=== PATIENT | male | born 1955 | race Caucasian/White ===

== ENCOUNTER 2016-08-06 12:49 | Outpatient (RCR) | payer OTHER ==
[~2016-08-06 12:49] MED LIST: ALFU10TA PO; ALFU10TA11 PO; ASP81TEC; CALC625T PO; CIPR500T21 PO; CYAN10006 PO; LOSA25TA2 PO; MULT1TAB63 PO; OLME1TAB24 PO; OLME40TA14; OMG1KC PO; OXYC-202 PO; PANT40TA3 PO
[2016-08-06 13:04] LABS: BASOPHILS % (AUTO) 1 % (0-10); EOSINOPHILS # (AUTO) 0.1 10^3/uL (0.0-0.3); EOSINOPHILS % (AUTO) 2 % (0-10); LYMPHOCYTES # (AUTO) 1.4 X 10^3 (1.0-4.0); LYMPHOCYTES % (AUTO) 25 % (12-44); MEAN CORPUSCULAR HEMOGLOBIN 27 PG (25-34); MEAN CORPUSCULAR HGB CONC 35 G/DL (32-36); MEAN CORPUSCULAR VOLUME 77 FL (80-99); MEAN PLATELET VOLUME 9.7 FL (7.4-10.4); MONOCYTES # (AUTO) 0.6 X 10^3 (0.0-1.0); MONOCYTES % (AUTO) 10 % (0-12); NEUTROPHILS # (AUTO) 3.6 X 10^3 (1.8-7.8); NEUTROPHILS % (AUTO) 62 % (42-75); PLATELET COUNT 216 10^3/uL (130-400); RED BLOOD COUNT 6.59 10^6/uL (4.35-5.85); RED CELL DISTRIBUTION WIDTH 21.6 % (10.0-14.5); WHITE BLOOD COUNT 5.8 10^3/uL (4.3-11.0)
[2016-08-06 13:47] LABS: ALANINE AMINOTRANSFERASE 38 U/L (0-55); ALBUMIN 4.4 G/DL (3.2-4.5); ANION GAP 7 MMOL/L (5-14); ASPARTATE AMINO TRANSFERASE 27 U/L (5-34); BILIRUBIN,TOTAL 0.5 MG/DL (0.1-1.0); BLOOD UREA NITROGEN 12 MG/DL (7-18); BUN/CREATININE RATIO 14; CALCIUM 8.9 MG/DL (8.5-10.1); CARBON DIOXIDE 27 MMOL/L (21-32); CHLORIDE 106 MMOL/L (98-107); CREATININE SERUM 0.88 MG/DL (0.60-1.30); GFR ESTIMATED > 60; GLUCOSE 79 MG/DL (70-105); POTASSIUM 4.1 MMOL/L (3.6-5.0); SODIUM 140 MMOL/L (135-145); TOTAL PROTEIN 6.9 G/DL (6.4-8.2)
== END 2016-11-04 | disposition home or self-care (01) ==
LOC: ONC 12:49
PROVIDERS: ATTEND Internal Medicine Hematology & Oncology
DX: C18.1 Malignant neoplasm of appendix (principal); Z85.038 Personal history of other malignant neoplasm of large intestine; D64.9 Anemia, unspecified; I10 Essential (primary) hypertension; R97.20 Elevated prostate specific antigen [PSA]; R71.8 Other abnormality of red blood cells; Z79.899 Other long term (current) drug therapy
CPT/HCPCS: 36415; 80053; 82378; 82728; 84153; 85025; 99213

== ENCOUNTER 2016-11-05 13:14 | Outpatient (RCR) | payer OTHER ==
[2016-11-05 13:14] LABS: BASOPHILS # (AUTO) 0.1 10^3/uL (0.0-0.1); BASOPHILS % (AUTO) 1 % (0-10); EOSINOPHILS # (AUTO) 0.3 10^3/uL (0.0-0.3); EOSINOPHILS % (AUTO) 4 % (0-10); LYMPHOCYTES # (AUTO) 1.6 X 10^3 (1.0-4.0); LYMPHOCYTES % (AUTO) 27 % (12-44); MEAN CORPUSCULAR HEMOGLOBIN 30 PG (25-34); MEAN CORPUSCULAR HGB CONC 35 G/DL (32-36); MEAN CORPUSCULAR VOLUME 85 FL (80-99); MEAN PLATELET VOLUME 10.1 FL (7.4-10.4); MONOCYTES # (AUTO) 0.6 X 10^3 (0.0-1.0); MONOCYTES % (AUTO) 11 % (0-12); NEUTROPHILS # (AUTO) 3.3 X 10^3 (1.8-7.8); NEUTROPHILS % (AUTO) 57 % (42-75); PLATELET COUNT 203 10^3/uL (130-400); RED BLOOD COUNT 5.87 10^6/uL (4.35-5.85); RED CELL DISTRIBUTION WIDTH 14.6 % (10.0-14.5); WHITE BLOOD COUNT 5.8 10^3/uL (4.3-11.0)
[2016-11-05 13:43] LABS: ALANINE AMINOTRANSFERASE 49 U/L (0-55); ALBUMIN 4.2 G/DL (3.2-4.5); ANION GAP 10 MMOL/L (5-14); ASPARTATE AMINO TRANSFERASE 26 U/L (5-34); BILIRUBIN,TOTAL 0.7 MG/DL (0.1-1.0); BLOOD UREA NITROGEN 13 MG/DL (7-18); BUN/CREATININE RATIO 15; CALCIUM 8.9 MG/DL (8.5-10.1); CARBON DIOXIDE 19 MMOL/L (21-32); CHLORIDE 111 MMOL/L (98-107); CREATININE SERUM 0.87 MG/DL (0.60-1.30); GFR ESTIMATED > 60; GLUCOSE 101 MG/DL (70-105); POTASSIUM 3.8 MMOL/L (3.6-5.0); SODIUM 140 MMOL/L (135-145)
== END 2017-02-03 | disposition home or self-care (01) ==
LOC: ONC 13:14
PROVIDERS: ATTEND Internal Medicine Hematology & Oncology
DX: C18.1 Malignant neoplasm of appendix (principal); Z85.038 Personal history of other malignant neoplasm of large intestine; D64.9 Anemia, unspecified; I10 Essential (primary) hypertension; R97.20 Elevated prostate specific antigen [PSA]; R71.8 Other abnormality of red blood cells; Z79.899 Other long term (current) drug therapy
CPT/HCPCS: 80053; 82378; 85025; 99213

== ENCOUNTER → 2016-11-05 | Outpatient (CLI) | payer OTHER | LOC: LAB 13:07 | PROVIDERS: ATTEND Specialist | DX: N40.1 Benign prostatic hyperplasia with lower urinary tract symptoms (principal); R97.20 Elevated prostate specific antigen [PSA] | CPT/HCPCS: 36415; 84153 ==

== ENCOUNTER 2017-02-04 12:56 | Outpatient (RCR) | payer OTHER ==
[2017-02-04 13:22] LABS: BASOPHILS # (AUTO) 0.1 10^3/uL (0.0-0.1); BASOPHILS % (AUTO) 1 % (0-10); EOSINOPHILS # (AUTO) 0.2 10^3/uL (0.0-0.3); EOSINOPHILS % (AUTO) 3 % (0-10); LYMPHOCYTES # (AUTO) 1.7 X 10^3 (1.0-4.0); LYMPHOCYTES % (AUTO) 34 % (12-44); MEAN CORPUSCULAR HEMOGLOBIN 29 PG (25-34); MEAN CORPUSCULAR HGB CONC 35 G/DL (32-36); MEAN CORPUSCULAR VOLUME 83 FL (80-99); MEAN PLATELET VOLUME 10.5 FL (7.4-10.4); MONOCYTES # (AUTO) 0.5 X 10^3 (0.0-1.0); MONOCYTES % (AUTO) 10 % (0-12); NEUTROPHILS # (AUTO) 2.7 X 10^3 (1.8-7.8); NEUTROPHILS % (AUTO) 52 % (42-75); PLATELET COUNT 182 10^3/uL (130-400); RED BLOOD COUNT 5.75 10^6/uL (4.35-5.85); WHITE BLOOD COUNT 5.1 10^3/uL (4.3-11.0)
[2017-02-04 13:40] LABS: ALANINE AMINOTRANSFERASE 40 U/L (0-55); ALBUMIN 4.1 GM/DL (3.2-4.5); ANION GAP 10 MMOL/L (5-14); ASPARTATE AMINO TRANSFERASE 26 U/L (5-34); BILIRUBIN,TOTAL 0.7 MG/DL (0.1-1.0); BLOOD UREA NITROGEN 12 MG/DL (7-18); BUN/CREATININE RATIO 14 (0-20); CARBON DIOXIDE 19 MMOL/L (21-32); CHLORIDE 113 MMOL/L (98-107); CREATININE SERUM 0.84 MG/DL (0.60-1.30); GFR ESTIMATED > 60; GLUCOSE 109 MG/DL (70-105); HEMOLYSIS 21 (-100-29); ICTERUS 0.8 (-100-1.9); LIPEMIA 20 (-100-49); POTASSIUM 3.5 MMOL/L (3.6-5.0); SODIUM 142 MMOL/L (135-145); TOTAL PROTEIN 7.1 GM/DL (6.4-8.2)
== END 2017-05-01 10:45 | disposition home or self-care (01) ==
LOC: ONC 12:56
PROVIDERS: ATTEND Internal Medicine Hematology & Oncology
DX: C18.1 Malignant neoplasm of appendix (principal); Z85.038 Personal history of other malignant neoplasm of large intestine; D64.9 Anemia, unspecified; I10 Essential (primary) hypertension; R97.20 Elevated prostate specific antigen [PSA]; R71.8 Other abnormality of red blood cells; Z79.899 Other long term (current) drug therapy
CPT/HCPCS: 36415; 80053; 82378; 84153; 85025; 99213

== ENCOUNTER 2017-05-05 02:05 | Outpatient (RCR) | payer OTHER ==
[2017-05-05 13:58] LABS: BASOPHILS # (AUTO) 0.1 10^3/uL (0.0-0.1); BASOPHILS % (AUTO) 1 % (0-10); EOSINOPHILS # (AUTO) 0.2 10^3/uL (0.0-0.3); EOSINOPHILS % (AUTO) 3 % (0-10); LYMPHOCYTES # (AUTO) 1.6 X 10^3 (1.0-4.0); LYMPHOCYTES % (AUTO) 26 % (12-44); MEAN CORPUSCULAR HEMOGLOBIN 30 PG (25-34); MEAN CORPUSCULAR HGB CONC 36 G/DL (32-36); MEAN CORPUSCULAR VOLUME 85 FL (80-99); MEAN PLATELET VOLUME 10.3 FL (7.4-10.4); MONOCYTES # (AUTO) 0.6 X 10^3 (0.0-1.0); MONOCYTES % (AUTO) 10 % (0-12); NEUTROPHILS # (AUTO) 3.8 X 10^3 (1.8-7.8); NEUTROPHILS % (AUTO) 60 % (42-75); PLATELET COUNT 205 10^3/uL (130-400); RED BLOOD COUNT 5.76 10^6/uL (4.35-5.85); RED CELL DISTRIBUTION WIDTH 14.3 % (10.0-14.5); WHITE BLOOD COUNT 6.2 10^3/uL (4.3-11.0)
[2017-05-05 14:44] LABS: ALANINE AMINOTRANSFERASE 48 U/L (0-55); ALBUMIN 4.2 GM/DL (3.2-4.5); ANION GAP 8 MMOL/L (5-14); ASPARTATE AMINO TRANSFERASE 26 U/L (5-34); BILIRUBIN,TOTAL 0.5 MG/DL (0.1-1.0); BLOOD UREA NITROGEN 11 MG/DL (7-18); BUN/CREATININE RATIO 12; CALCIUM 9.1 MG/DL (8.5-10.1); CARBON DIOXIDE 24 MMOL/L (21-32); CHLORIDE 110 MMOL/L (98-107); CREATININE SERUM 0.92 MG/DL (0.60-1.30); GFR ESTIMATED > 60; GLUCOSE 91 MG/DL (70-105); POTASSIUM 3.9 MMOL/L (3.6-5.0); SODIUM 142 MMOL/L (135-145); TOTAL PROTEIN 7.2 GM/DL (6.4-8.2)
== END 2017-05-14 09:14 | disposition home or self-care (01) ==
LOC: ONC 02:05
PROVIDERS: ATTEND Internal Medicine Hematology & Oncology
DX: C18.1 Malignant neoplasm of appendix (principal); Z85.038 Personal history of other malignant neoplasm of large intestine; D64.9 Anemia, unspecified; I10 Essential (primary) hypertension; R97.20 Elevated prostate specific antigen [PSA]; R71.8 Other abnormality of red blood cells; Z79.899 Other long term (current) drug therapy
CPT/HCPCS: 36415; 80053; 82378; 83735; 85025; 99213

== ENCOUNTER 2017-06-13 06:32 | Outpatient (CLI) | payer OTHER ==
[~2017-06-13] VITALS: Ht 180.3 cm; Wt 94.1 kg
[2017-06-13] MEDS ORDERED: MULT1TAB69 PO (11:39)
== END 2017-06-13 11:45 ==
LOC: PREOP 06:32
PROVIDERS: ATTEND Surgery
DX: Z01.818 Encounter for other preprocedural examination (principal); D64.9 Anemia, unspecified; Z85.038 Personal history of other malignant neoplasm of large intestine

== ENCOUNTER → 2017-08-04 | Outpatient (CLI) | payer OTHER ==
[~2017-08-04] MED LIST changes: +MULT1TAB69 PO
[2017-08-04 13:01] LABS: BASOPHILS # (AUTO) 0.1 10^3/uL (0.0-0.1); BASOPHILS % (AUTO) 1 % (0-10); EOSINOPHILS # (AUTO) 0.2 10^3/uL (0.0-0.3); EOSINOPHILS % (AUTO) 3 % (0-10); LYMPHOCYTES # (AUTO) 1.5 X 10^3 (1.0-4.0); LYMPHOCYTES % (AUTO) 26 % (12-44); MEAN CORPUSCULAR HEMOGLOBIN 30 PG (25-34); MEAN CORPUSCULAR HGB CONC 35 G/DL (32-36); MEAN CORPUSCULAR VOLUME 85 FL (80-99); MEAN PLATELET VOLUME 10.2 FL (7.4-10.4); MONOCYTES # (AUTO) 0.5 X 10^3 (0.0-1.0); MONOCYTES % (AUTO) 9 % (0-12); NEUTROPHILS # (AUTO) 3.7 X 10^3 (1.8-7.8); NEUTROPHILS % (AUTO) 63 % (42-75); PLATELET COUNT 205 10^3/uL (130-400); RED BLOOD COUNT 5.69 10^6/uL (4.35-5.85); RED CELL DISTRIBUTION WIDTH 14.2 % (10.0-14.5)
[2017-08-04 13:19] LABS: ALANINE AMINOTRANSFERASE 40 U/L (0-55); ALBUMIN 4.2 GM/DL (3.2-4.5); ANION GAP 8 MMOL/L (5-14); ASPARTATE AMINO TRANSFERASE 21 U/L (5-34); BILIRUBIN,TOTAL 0.5 MG/DL (0.1-1.0); BLOOD UREA NITROGEN 18 MG/DL (7-18); BUN/CREATININE RATIO 21; CALCIUM 8.6 MG/DL (8.5-10.1); CARBON DIOXIDE 21 MMOL/L (21-32); CHLORIDE 111 MMOL/L (98-107); CREATININE SERUM 0.87 MG/DL (0.60-1.30); GFR ESTIMATED > 60; GLUCOSE 106 MG/DL (70-105); POTASSIUM 3.7 MMOL/L (3.6-5.0); SODIUM 140 MMOL/L (135-145); TOTAL PROTEIN 7.2 GM/DL (6.4-8.2)
== END ==
LOC: ONC 12:57
PROVIDERS: ATTEND Internal Medicine Hematology & Oncology
DX: C18.1 Malignant neoplasm of appendix (principal); Z85.038 Personal history of other malignant neoplasm of large intestine; D64.9 Anemia, unspecified; I10 Essential (primary) hypertension; R97.20 Elevated prostate specific antigen [PSA]; Z79.899 Other long term (current) drug therapy
CPT/HCPCS: 36415; 80053; 82378; 85025; 99213

== ENCOUNTER 2017-11-03 10:20 | Outpatient (RCR) | payer OTHER ==
[2017-11-03 10:57] LABS: BASOPHILS # (AUTO) 0.1 10^3/uL (0.0-0.1); BASOPHILS % (AUTO) 1 % (0-10); EOSINOPHILS # (AUTO) 0.1 10^3/uL (0.0-0.3); EOSINOPHILS % (AUTO) 2 % (0-10); HEMATOCRIT 48 % (40-54); HEMOGLOBIN 17.4 G/DL (13.3-17.7); LYMPHOCYTES # (AUTO) 1.4 X 10^3 (1.0-4.0); LYMPHOCYTES % (AUTO) 29 % (12-44); MEAN CORPUSCULAR HEMOGLOBIN 30 PG (25-34); MEAN CORPUSCULAR HGB CONC 36 G/DL (32-36); MEAN CORPUSCULAR VOLUME 83 FL (80-99); MEAN PLATELET VOLUME 10.4 FL (7.4-10.4); MONOCYTES # (AUTO) 0.4 X 10^3 (0.0-1.0); MONOCYTES % (AUTO) 9 % (0-12); NEUTROPHILS % (AUTO) 60 % (42-75); PLATELET COUNT 182 10^3/uL (130-400); RED BLOOD COUNT 5.74 10^6/uL (4.35-5.85); RED CELL DISTRIBUTION WIDTH 13.9 % (10.0-14.5)
[2017-11-03 11:31] LABS: ALANINE AMINOTRANSFERASE 30 U/L (0-55); ALBUMIN 4.4 GM/DL (3.2-4.5); ALKALINE PHOSPHATASE 66 U/L (40-136); BILIRUBIN,TOTAL 0.5 MG/DL (0.1-1.0); BUN/CREATININE RATIO 21; CARBON DIOXIDE 19 MMOL/L (21-32); CHLORIDE 112 MMOL/L (98-107); GFR ESTIMATED > 60; GLUCOSE 109 MG/DL (70-105); POTASSIUM 3.8 MMOL/L (3.6-5.0); SODIUM 138 MMOL/L (135-145); TOTAL PROTEIN 7.3 GM/DL (6.4-8.2)
== END 2018-02-01 | disposition home or self-care (01) ==
LOC: ONC 10:20
PROVIDERS: ATTEND Internal Medicine Hematology & Oncology
DX: C18.1 Malignant neoplasm of appendix (principal); Z85.038 Personal history of other malignant neoplasm of large intestine; D64.9 Anemia, unspecified; I10 Essential (primary) hypertension; Z79.899 Other long term (current) drug therapy
CPT/HCPCS: 80053; 82378; 85025; 99213

== ENCOUNTER → 2017-11-03 | Outpatient (CLI) | payer OTHER | LOC: LAB 10:37 | PROVIDERS: ATTEND Nurse Practitioner Family | DX: N40.1 Benign prostatic hyperplasia with lower urinary tract symptoms (principal); R97.20 Elevated prostate specific antigen [PSA] | CPT/HCPCS: 36415; 84153 ==

== ENCOUNTER 2018-03-03 13:19 | Outpatient (RCR) | payer OTHER ==
[~2018-03-03 13:19] MED LIST changes: -OXYC-202 PO; +OXYC1TAB12 PO
[2018-03-03 14:09] LABS: BASOPHILS % (AUTO) 1 % (0-10); EOSINOPHILS # (AUTO) 0.2 10^3/uL (0.0-0.3); EOSINOPHILS % (AUTO) 5 % (0-10); HEMATOCRIT 47 % (40-54); HEMOGLOBIN 16.8 G/DL (13.3-17.7); LYMPHOCYTES # (AUTO) 1.5 X 10^3 (1.0-4.0); LYMPHOCYTES % (AUTO) 27 % (12-44); MEAN CORPUSCULAR HEMOGLOBIN 30 PG (25-34); MEAN CORPUSCULAR HGB CONC 36 G/DL (32-36); MEAN CORPUSCULAR VOLUME 85 FL (80-99); MEAN PLATELET VOLUME 10.4 FL (7.4-10.4); MONOCYTES # (AUTO) 0.5 X 10^3 (0.0-1.0); MONOCYTES % (AUTO) 10 % (0-12); NEUTROPHILS # (AUTO) 3.1 X 10^3 (1.8-7.8); NEUTROPHILS % (AUTO) 58 % (42-75); PLATELET COUNT 208 10^3/uL (130-400); RED BLOOD COUNT 5.59 10^6/uL (4.35-5.85); RED CELL DISTRIBUTION WIDTH 14.5 % (10.0-14.5); WHITE BLOOD COUNT 5.3 10^3/uL (4.3-11.0)
[2018-03-03 14:26] LABS: ALANINE AMINOTRANSFERASE 31 U/L (0-55); ALBUMIN 4.4 GM/DL (3.2-4.5); ALKALINE PHOSPHATASE 58 U/L (40-136); BILIRUBIN,TOTAL 0.6 MG/DL (0.1-1.0); BUN/CREATININE RATIO 17; CARBON DIOXIDE 19 MMOL/L (21-32); CHLORIDE 113 MMOL/L (98-107); CREATININE SERUM 0.78 MG/DL (0.60-1.30); GFR ESTIMATED > 60; GLUCOSE 106 MG/DL (70-105); POTASSIUM 3.7 MMOL/L (3.6-5.0); SODIUM 141 MMOL/L (135-145); TOTAL PROTEIN 7.1 GM/DL (6.4-8.2)
== END 2018-03-17 | disposition home or self-care (01) ==
LOC: ONC 13:19
PROVIDERS: ATTEND Internal Medicine Hematology & Oncology
DX: C18.1 Malignant neoplasm of appendix (principal); D64.9 Anemia, unspecified; I10 Essential (primary) hypertension; Z79.899 Other long term (current) drug therapy
CPT/HCPCS: 36415; 80053; 82378; 85025; 99213

== ENCOUNTER → 2018-05-06 | Outpatient (CLI) | payer OTHER | LOC: CARD 08:35 | PROVIDERS: ATTEND Internal Medicine Cardiovascular Disease | DX: I10 Essential (primary) hypertension (principal); E78.2 Mixed hyperlipidemia; E61.1 Iron deficiency; E66.9 Obesity, unspecified; I35.1 Nonrheumatic aortic (valve) insufficiency | CPT/HCPCS: 93017; 93306 ==

== ENCOUNTER 2018-06-25 05:48 | Outpatient (CLI) | payer OTHER ==
[~2018-06-25] VITALS: Ht 180.3 cm; Wt 94.1 kg
[2018-06-25] MEDS ORDERED: POLY17PO6 PO (09:53)
== END 2018-06-25 09:57 | disposition home or self-care (01) ==
LOC: PREOP 05:48
PROVIDERS: ATTEND Surgery
DX: Z01.818 Encounter for other preprocedural examination (principal)

== ENCOUNTER → 2018-07-03 | Day surgery (SDC) | payer OTHER ==
[~2018-07-03] VITALS: Ht 180.3 cm; Wt 94.1 kg
[~2018-07-03] MED LIST changes: +ACETAMINOPHEN 325 MG TABLET PO PRN; +HYDROcodone/APAP 5 MG/325 MG (LORTAB) TAB PO PRN; +LIDOCAINE JELLY 2% 6 ML SYRINGE MM PRN; +LIDOCAINE JELLY 2% 6 ML SYRINGE ONE; +MIDAZOLAM 2 MG/2 ML (VERSED) VIAL IVP ONE; +MIDAZOLAM 2 MG/2 ML (VERSED) VIAL ONE; +NS IV 500 ML 500 ML ONE; +ONDANSETRON 4 MG/2 ML (SDV) Z0FRAN IV PRN; +POLY17PO6 PO; +fentaNYL INJECTION 100 MCG/2 ML AMP IVP ONE; +fentaNYL INJECTION 100 MCG/2 ML AMP ONE; +morphine INJ 10 MG/ML 1ML (SYR OR VIAL) IV PRN
--- OUTSIDE RECORDS SUMMARY | 2018-07-03 10:57 | XMS REPORT ---
Author Author YARI BORJAS Organization [facility] Address [address] [place] [address] Care Team Providers Care Analytical Lab Analyst Name Role Phone YARI BORJAS Unavailable PROBLEMS Type Condition ICD9-CM Code RKQ16-HR Code Onset Dates Condition Status SNOMED Code Problem BPH without urinary obstruction N40.0 Active 809282724 Problem Gastroesophageal reflux disease without esophagitis K21.9 Active 691374617 Problem Mixed hyperlipidemia E78.2 Active 467000887 Problem Essential hypertension I10 Active 97953266 ALLERGIES No Known Allergies ENCOUNTERS Encounter Location Date Diagnosis [address] [id number] Jan, Essential hypertension I10 ; Mixed hyperlipidemia E78.2 and Fatigue, unspecified type R53.83 [facility] [id number] [place] [address] [id number] Jan, Essential hypertension I10 [address] [id number] December, Essential hypertension I10 ; Mixed hyperlipidemia E78.2 ; Gastroesophageal reflux disease without esophagitis K21.9 and BPH without urinary obstruction N40.0 [id number] [place] [address] [id number] Sep, Acute rhinosinusitis J01.90 [facility] [id number] [place] [phone] Sep, [address] [id number] Jan, Essential hypertension I10 ; Mixed hyperlipidemia E78.2 ; Gastroesophageal reflux disease without esophagitis K21.9 and Benign prostatic hyperplasia, presence of lower urinary tract symptoms unspecified N40.0 [address] [place] [id number] Nov, Essential hypertension I10 [facility] [place] [id number], [place] [id number] Sep, Essential hypertension I10 [facility] [place] [id number], [place] [id number] Sep, Essential hypertension I10 [facility] [place] [id number], [place] [id number] Jul, Essential hypertension I10 and History of gastric ulcer Z87.19 [facility] [place] [id number], [place] [id number] May, [facility] [id number] [place] [address] [id number] Mar, Essential hypertension I10 and Fatigue, unspecified type R53.83 [facility] [id number], [place] [id number] Feb, [facility] [place] [id number] [place] [address] [id number] Jan, [facility] [id number], [place] [id number] Oct, [facility] [id number], [place] [id number] Oct, High risk medication use V58.69 ; Essential hypertension I10 and Elevated prostate specific antigen (PSA) R97.2 [facility] [id number], [place] [id number] Sep, Essential hypertension I10 [facility] [id number], [place] [id number] Aug, [facility] [address] [id number] [id number] May, [facility] [id number], [place] [id number] Feb, [facility] [id number], [place] [id number] Feb, High risk medication use V58.69 and Lumbar radicular pain 724.4 [facility] [address] [id number] [place] [address] Nov, [facility] [place] [facility] [address] [facility] [id number] [place] [address] Nov, [facility] [place] [facility] [address] [facility] [id number] [place] [address] Oct, [facility] [place] [address] [facility] [id number][place] [id number] Oct, [facility] [place] [facility] [address] [facility] [id number] [place] [address] Aug, [facility] [place] [address] [facility] [id number] [place] [id number] Aug, [facility] [place] [facility] [address] [facility] [id number] [place] [address] Apr, [facility] [place] [address] [facility] [id number][place] [id number] Apr, [facility] [place] [address] [facility] [id number], [place] [id number] Mar, [facility] [place] [facility] [address] [facility] [id number], [place] [address] Mar, [facility] [place] [address] [facility] [id number], [place] [id number] Feb, [facility] [place] [facility] [address] [facility] [id number], [place] [address] Feb, [facility] [place] [address] [facility] [id number], [place] [id number] Jan, [facility] [place] [facility] [address] [facility] [id number], [place] [address] Jan, [facility] [place] [address] [facility] [id number], [place] [phone] Jan, [facility] [place] [facility] [address] [facility] [id number] [place] [address] Jan, [facility] [place] [address] [facility] [id number], [place] [id number] December, [facility] [place] [facility] [address] [id number], [place] [address] December, [facility] [address]00565100[place], [place] [address] Nov, [facility] [id number], [place] [id number] Nov, [facility] [id number], [place] [id number] Nov, [facility] [address]00565100[place], [place] [address] Nov, [facility] [id number] [place] [address] [id number] Aug, [facility] [address]00565100[place], [place] [address] Aug, [facility] [address]00565100[place], [place] [id number] Sep, [facility] [id number] [place] [address] [id number] Jul, [facility] [address]00565100[place], [place] [address] Jul, [facility] [address]00565100[place], [place] [address] Jul, IMMUNIZATIONS No Known Immunizations SOCIAL HISTORY Never Assessed REASON FOR VISIT heart drWilfred referral Ramila RN PLAN OF CARE Activity Details Follow Up pending referral and 3 months for HTN FU Reason: VITAL SIGNS Height 72 in 2018-02-09 Weight 227 lbs 2018-02-09 Temperature 98.3 degrees Fahrenheit 2018-02-09 Heart Rate 96 bpm 2018-02-09 Respiratory Rate 18 2018-02-09 BMI 30.78 kg/m2 2018-02-09 Blood pressure systolic 120 mmHg 2018-02-09 Blood pressure diastolic 82 mmHg 2018-02-09 MEDICATIONS Medication Instructions Dosage Frequency Start Date End Date Duration Status Vitamin B12 100 MCG Active Fish Oil 1000 MG Orally Twice a day 1 capsule 12h Active Turmeric 500 MG Active Aspirin Adult Low Dose 81 MG Orally Once a day 1 tablet 24h Active pantoprazole 40 mg by oral route Once a day 1 tablet 24h 14 Aug, 2014 0 Active Uroxatral 10 MG Orally Once a day 1 tablet immediately after the same meal 24h 0 Active Cozaar 50 mg Orally Once a day 1 tablet 24h 0 Active RESULTS Name Result Date Reference Range MAGNESIUM SERUM 2018-02-09 MAGNESIUM 2.0 1.5-2.5 PROCEDURES Procedure Date Ordered Result Body Site ASSAY OF MAGNESIUM February 09, 2018 VENIPUNCT, ROUTINE* February 09, 2018 INSTRUCTIONS MEDICATIONS ADMINISTERED No Known Medications MEDICAL (GENERAL) HISTORY Type Description Date Medical History Diaphragmatic hernia without mention of obstruction or gangrene Medical History Gastric ulcer, unspecified as acute or chronic, without mention of hemorrhage, perforation, or obstruction Medical History Persistent disorder of initiating or maintaining sleep Medical History hypertension Medical History urologic disorder- bph dx [address] Dr[address] Soliman Medical History colon [id number] [place] living [place] [facility], [facility] 2006 Medical History 2010 colonoscopy and reoved several polups, and had an acute bleed 1 week after Medical History 01/2016 had RUQ pain and was found to have tumor on appendix, was removed, FU with Dr. Mahoney every 3 months Medical History [facility] FU 05/09/17, cont surveillance, repeat colonoscopy Dr Chao for 05/2017, FU 3 months CBC, CMP and CEA Medical History Unspecified anemia Medical History Unspecified anemia Medical History Persistent disorder of initiating or maintaining sleep Medical History Diaphragmatic hernia without mention of obstruction or gangrene Medical History Gastric ulcer, unspecified as acute or chronic, without mention of hemorrhage, perforation, or obstruction Surgical History tonsillectomy 1958 Surgical History EGD done at [facility] for bleeding ulcer 12/2013 Surgical History colonoscopy f/u in 5 2006 Surgical History 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 Chao 06/12/2016 Surgical History colonoscopy- 06/12/2016 Surgical History Left Shoulder surgery with screw and is better 2007
--- OUTSIDE RECORDS SUMMARY | 2018-07-03 10:57 | XMS REPORT ---
Author Author YARI BORJAS Organization [facility] Address [address] [place] [address] Care Team Providers Care Brake Reliner Name Role Phone YARI BORJAS Unavailable PROBLEMS Type Condition ICD9-CM Code [id number] Code Onset Dates Condition Status SNOMED Code Problem BPH without urinary obstruction N40.0 Active 139783082 Problem Gastroesophageal reflux disease without esophagitis K21.9 Active 756085538 Problem Mixed hyperlipidemia E78.2 Active 416886416 Problem Essential hypertension I10 Active 39138100 ALLERGIES No Information ENCOUNTERS Encounter Location Date Diagnosis [address] [id number] Jan, Essential hypertension I10 ; Mixed hyperlipidemia E78.2 and Fatigue, unspecified type R53.83 [facility] [id number] [place] [address] [id number] Jan, Essential hypertension I10 [address] [id number] December, Essential hypertension I10 ; Mixed hyperlipidemia E78.2 ; Gastroesophageal reflux disease without esophagitis K21.9 and BPH without urinary obstruction N40.0 [id number] [place] [address] [id number] Sep, Acute rhinosinusitis J01.90 [facility] [id number] [place] [phone] Sep, [address] [id number] Jan, Essential hypertension I10 ; Mixed hyperlipidemia E78.2 ; Gastroesophageal reflux disease without esophagitis K21.9 and Benign prostatic hyperplasia, presence of lower urinary tract symptoms unspecified N40.[address] [place], [place] [id number] Nov, Essential hypertension I10 [facility] [place] [id number] [place] [id number] Sep, Essential hypertension I10 [facility] [place] [id number] [place] [id number] Sep, Essential hypertension I10 [facility] [place] [id number] [place] [address] [id number] Jul, Essential hypertension I10 and History of gastric ulcer Z87.19 [facility] [place] [id number] [place] [id number] May, [facility] [place] [id number] [place] [address] [id number] Mar, Essential hypertension I10 and Fatigue, unspecified type R53.83 [facility] [place] [id number] [place] [id number] Feb, [facility] [place] [id number] [place] [address] [id number] Jan, [facility] [place] [id number] [place] [id number] Oct, [facility] [id number] [place] [address] [id number] Oct, High risk medication use V58.69 ; Essential hypertension I10 and Elevated prostate specific antigen (PSA) R97.2 [facility] [id number] [place] [id number] Sep, Essential hypertension I10 [facility] [id number] [place] [id number] Aug, [facility] [address] [id number] [id number] May, [facility] [id number] [place] [id number] Feb, [facility] [id number] [place] [id number] Feb, High risk medication use V58.69 and Lumbar radicular pain 724.4 [facility] [address] [id number], [place] [address] Nov, [facility] [place] [facility] [address] [facility] [address] [id number], [place] [address] Nov, [facility] [place] [facility] [address] [facility] [address] [id number], [place] [address] Oct, [facility] [place] [address] [facility] [id number] [place] [id number] Oct, [facility] [place] [facility] [address] [facility] [address] [id number], [place] [address] Aug, [facility] [place] [address] [facility] [id number] [place] [id number] Aug, [facility] [place] [facility] [address] [id number], [place] [address] Apr, [facility] [place] [address] [id number] [place] [id number] Apr, [facility] [place] [address] [id number] [place] [id number] Mar, [facility] [place] [facility] [address] [id number], [place] [address] Mar, [facility] [place] [address] [facility] [id number] [place] [id number] Feb, [facility] [place] [facility] [address] [id number], [place] [address] Feb, [facility] [place] [address] [facility] [id number] [place] [id number] Jan, [facility] [place] [facility] [address] [facility] [address] [id number], [place] [address] Jan, [facility] [place] [address] [facility] [id number] [place] [id number] Jan, [facility] [place] [facility] [address] [facility] [address] [id number], [place] [address] Jan, [facility] [place] [address] [facility] [id number] [place] [id number] December, [facility] [place] [facility] [address]00565100[place], [place] [address] December, [facility] [address]00565100[place], [place] [address] Nov, [facility] [address]00565100[place] [id number] Nov, [facility] [address] [place] [address] [phone] Nov, [facility] [id number] [place] [address] Nov, [facility] [id number] [place] [address] [id number] Aug, [facility] [address] [place] [address] Aug, [facility] [address] [place] [address] [id number] Sep, [facility] [id number] [place] [address] [id number] Jul, [facility] [address] [place] [address] Jul, [facility] [address]00565100[place], [place] [address] Jul, IMMUNIZATIONS No Known Immunizations SOCIAL HISTORY Never Assessed REASON FOR VISIT EKG Ramila ARCE PLAN OF CARE VITAL SIGNS MEDICATIONS No Known Medications RESULTS No Results PROCEDURES Procedure Date Ordered Result Body Site EKG, TRACING (IN-HOUSE) 2018-02-03 SR, RBBB possible ELECTROCARDIOGRAM, TRACING February 03, 2018 INSTRUCTIONS MEDICATIONS ADMINISTERED No Known Medications MEDICAL (GENERAL) HISTORY Type Description Date Medical History Diaphragmatic hernia without mention of obstruction or gangrene Medical History Gastric ulcer, unspecified as acute or chronic, without mention of hemorrhage, perforation, or obstruction Medical History Persistent disorder of initiating or maintaining sleep Medical History hypertension Medical History urologic disorder- bph dx [address] Soilman Medical History colon [id number] [place] [facility] [place] Medical History 2011 colonoscopy and reoved several polups, and had [...] tonsillectomy 1958 Surgical History EGD done at [facility] for bleeding ulcer 12/2013 Surgical History colonoscopy f/u in 5 years 2006 Surgical History 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 Chao 06/12/2016 Surgical History colonoscopy- 06/12/2016 Surgical History Left Shoulder surgery with screw and is better 2007
--- OUTSIDE RECORDS SUMMARY | 2018-07-03 10:57 | XMS REPORT ---
Author Author YARI BORJAS Organization [facility] Address [address] [place] [address] Care Team Providers Care Otr Company Driver Name Role Phone YARI BORJAS Unavailable PROBLEMS Type Condition ICD9-CM Code [id number] Code Onset Dates Condition Status SNOMED Code Problem BPH without urinary obstruction N40.0 Active 286530646 Problem Gastroesophageal reflux disease without esophagitis K21.9 Active 275629165 Problem Mixed hyperlipidemia E78.2 Active 053769928 Problem Essential hypertension I10 Active 72201156 ALLERGIES No Known Allergies ENCOUNTERS Encounter Location Date Diagnosis [address] [id number] Jan, Essential hypertension I10 ; Mixed hyperlipidemia E78.2 and Fatigue, unspecified type R53.83 [facility] [id number] [place] [id number] Jan, Essential hypertension I10 [address] [id number] December, Essential hypertension I10 ; Mixed hyperlipidemia E78.2 ; Gastroesophageal reflux disease without esophagitis K21.9 and BPH without urinary obstruction N40.0 [id number] [place] [id number] Sep, Acute rhinosinusitis J01.90 [facility] [id number] [place] [id number] Sep, [address] [id number] Jan, Essential hypertension I10 ; Mixed hyperlipidemia E78.2 ; Gastroesophageal reflux disease without esophagitis K21.9 and Benign prostatic hyperplasia, presence of lower urinary tract symptoms unspecified N40.0 [address] [place] [id number] Nov, Essential hypertension I10 [facility] [id number] [id number] Sep, Essential hypertension I10 [facility] [id number] [id number] Sep, Essential hypertension I10 [facility] [id number][place] [id number] Jul, Essential hypertension I10 and History of gastric ulcer Z87.19 [facility] [id number][place] [id number] May, [facility] [id number] [place] [id number] Mar, Essential hypertension I10 and Fatigue, unspecified type R53.83 [facility] [id number][place] [id number] Feb, [facility] [id number] [place] [id number] Jan, [facility] [id number], [place] [id number] Oct, [facility] [id number], [place] [phone] Oct, High risk medication use V58.69 ; Essential hypertension I10 and Elevated prostate specific antigen (PSA) R97.2 [facility] [id number][place] [id number] Sep, Essential hypertension I10 [facility] [id number], [place] [id number] Aug, [facility] [address] [id number] [id number] May, [facility] [id number], [place] [id number] Feb, [facility] [id number], [place] [id number] Feb, High risk medication use V58.69 and Lumbar radicular pain 724.4 [facility] [address] [id number] [place] [address] Nov, [facility] [place] [facility] [address] [facility] [id number] [place] [address] Nov, [facility] [place] [facility] [address] [facility] [id number] [place] [address] Oct, [facility] [address] [facility] [id number][place] [id number] Oct, [facility] [place] [facility] [address] [facility] [id number] [place] [address] Aug, [facility] [address] [facility] [id number] [place] [id number] Aug, [facility] [place] [facility] [address] [facility] [id number] [place] [address] Apr, [facility] [address] [facility] [id number][place] [id number] Apr, [facility] [address] [facility] [id number], [place] [id number] Mar, [facility] [place] [facility] [address] [facility] [id number] [address] Mar, [facility] [address] [facility] [id number], [place] [id number] Feb, [facility] [place] [facility] [address] [facility] [id number] [address] Feb, [facility] [address] [facility] [id number], [place] [id number] Jan, [facility] [place] [facility] [address] [facility] [id number][place] [address] Jan, [facility] [address] [facility] [id number][place] [id number] Jan, [facility] [place] [facility] [address] [facility] [id number] [place] [address] Jan, [facility] [address] [facility] [id number], [place] [id number] December, [facility] [place] [facility] [address] [id number] [address] December, [facility] [address]00565100[place], [place] [address] Nov, [facility] [id number], [place] [id number] Nov, [facility] [id number], [place] [id number] Nov, [facility] [address]00565100[place], [place] [address] Nov, [facility] [id number] [place] [id number] Aug, [facility] [address]00565100[place], [place] [address] Aug, [facility] [id number], [place] [id number] Sep, [facility] [address] [id number] [id number] Jul, [facility] [address]00565100[place] [address] Jul, [facility] [address]00565100[place] [address] Jul, IMMUNIZATIONS No Known Immunizations SOCIAL HISTORY Never Assessed REASON FOR VISIT CHM- Annual f/u on Hypertension Anton MAYBERRY PLAN OF CARE Activity Details Follow Up 1 Year, prn Reason:CHM HTN VITAL SIGNS Height 72 in 2017-12-29 Weight 237 lbs 2017-12-29 Temperature 99.2 degrees Fahrenheit 2017-12-29 Heart Rate 100 bpm 2017-12-29 Respiratory Rate 18 2017-12-29 BMI 32.14 kg/m2 2017-12-29 Blood pressure systolic 140 mmHg 2017-12-29 Blood pressure diastolic 82 mmHg 2017-12-29 MEDICATIONS Medication Instructions Dosage Frequency Start Date End Date Duration Status Turmeric 500 MG Active pantoprazole 40 mg by oral route Once a day 1 tablet 24h Aug, 0 Active Vitamin B12 100 MCG Active Uroxatral 10 MG Orally Once a day 1 tablet immediately after the same meal 24h 0 Active Aspirin Adult Low Dose 81 MG Orally Once a day 1 tablet 24h Active Fish Oil 1000 MG Orally Twice a day 1 capsule 12h Active Cozaar 50 mg Orally Once a day 1 tablet 24h Nov, 0 days Active RESULTS Name Result Date Reference Range MICROALBUMIN, URINE (IN HOUSE) 2017-12-29 MICROALBUMIN normal Lot # [id number] Exp date 07/2018 Clarity clear Color yellow ALB 30 CRE 300 A:C (IN HOUSE) <30 Control + Control Lot # Exp date PROCEDURES Procedure Date Ordered Result Body Site MICROALBUMIN, SEMIQUANT December 29, 2017 INSTRUCTIONS MEDICATIONS ADMINISTERED No Known Medications MEDICAL (GENERAL) HISTORY Type Description Date Medical History Diaphragmatic hernia without mention of obstruction or gangrene Medical History Gastric ulcer, unspecified as acute or chronic, without mention of hemorrhage, perforation, or obstruction Medical History Persistent disorder of initiating or maintaining sleep Medical History hypertension Medical History urologic disorder- bph dx [address] Dr. Soliman Medical History colon [id number] while living in [place]- [facility], [facility] 2006 Medical History 2010 [...] tonsillectomy 1958 Surgical History EGD done at [place] for bleeding ulcer 12/2013 Surgical History colonoscopy f/u in 5 years 2006 Surgical History 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 Chao 06/12/2016 Surgical History colonoscopy- 06/12/2016 Surgical History Left Shoulder surgery with screw and is better 2007
--- OUTSIDE RECORDS SUMMARY | 2018-07-03 10:58 | XMS REPORT ---
Author Author YARI BORJAS Organization [facility] Address [address] [place] [address] Care Team Providers Care Communication Equipment Mechanic Name Role Phone YARI BORJAS Unavailable PROBLEMS Type Condition ICD9-CM Code [id number] Code Onset Dates Condition Status SNOMED Code Problem Elevated prostate specific antigen (PSA) 790.93 Active 621322259 Problem Diaphragmatic hernia without mention of obstruction or gangrene 553.3 Active 94194752 Problem Thoracic or lumbosacral neuritis or radiculitis, unspecified 724.4 Active 715484127 Problem Other follow-up examination V67.59 Active 743589213 Problem Mixed hyperlipidemia E78.2 Active 561662313 Problem Gastroesophageal reflux disease without esophagitis K21.9 Active 359937318 Problem 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.42 Active 18870112 Problem Gastric ulcer, unspecified as acute or chronic, without mention of hemorrhage, perforation, or obstruction 531.90 Active 10478422 Problem Essential hypertension I10 Active 15315444 Problem Unspecified anemia 285.9 Active 097160742 ALLERGIES No Known Allergies SOCIAL HISTORY No smoking Hx information available PLAN OF CARE VITAL SIGNS MEDICATIONS Medication Instructions Dosage Frequency Start Date End Date Duration Status Cozaar 25 MG Orally Once a day 1 tablet 24h Mar, 90 days Active RESULTS No Results PROCEDURES No Known procedures IMMUNIZATIONS No Known Immunizations
--- OUTSIDE RECORDS SUMMARY | 2018-07-03 10:58 | XMS REPORT ---
Author Author ROSALINA QUINTERO Organization [employer] Address Unknown Phone Unavailable Care Team Providers Care Helmet Coverer Name Role Phone ROSALINA QUINTERO Unavailable Allergies No Known Allergies Problems Problem Type Condition Code Onset Dates Condition Status Problem 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.42 Active Problem Elevated prostate specific antigen (PSA) 790.93 Active Problem Unspecified anemia 285.9 Active Problem Diaphragmatic hernia without mention of obstruction or gangrene 553.3 Active Problem Gastric ulcer, unspecified as acute or chronic, without mention of hemorrhage, perforation, or obstruction 531.90 Active Problem Thoracic or lumbosacral neuritis or radiculitis, unspecified 724.4 Active Problem Other follow-up examination V67.59 Active Medications Medication Code System Code Instructions Start Date End Date Status Dosage Benicar HCT [facility] [address]-10 40-25 MG Orally Once a day Aug 31, 2014 1 tablet Results No Known Results Summary Purpose [employer] Submission
--- OUTSIDE RECORDS SUMMARY | 2018-07-03 10:58 | XMS REPORT ---
Author Author ROSALINA QUINTERO [facility] [employer] Address Unknown Phone Unavailable Care Team Providers Care Gang Rider Name Role Phone ROSALINA QUINTERO Unavailable Allergies [...] Problem Other follow-up examination V67.59 Active Medications No Known Medications Results No Known Results Summary Purpose [employer] Submission
--- OUTSIDE RECORDS SUMMARY | 2018-07-03 10:58 | XMS REPORT ---
Author Author ROSALINA QUINTERO [facility] Address Unknown Phone Unavailable Care Team Providers Care Director Ship Name Role Phone ROSALINA QUINTERO CP Unavailable Allergies, Adverse Reactions, Alerts Substance Reaction Event Type N.K.D.A. Info Not Available Non Drug Allergy Problems Problem Type Condition Code Onset Dates Condition Status Assessment Essential hypertension I10 Active Assessment Fatigue, unspecified type R53.83 Active Problem Persistent disorder of initiating or maintaining [...] Instructions Start Date End Date Status Dosage Percocet [facility] [address]-90 5-325 MG Orally every 6 hrs PRN must last 30 days March 01, 2015 1 tablet as needed Cozaar [facility] [address]-43 25 MG Orally Once a day Mar 29, 2016 1 tablet Restoril [facility] [address]-47 15 mg Aug 31, 2014 1 capsule by Oral route 1 time per day PRN pantoprazole ND 0 40 mg by oral route Once a day Aug 31, 2014 1 tablet Xarelto [facility] [address]-40 20 MG Orally Once a day 1 tablet with food Procedures Procedure Coding System Code Date Office Visit, Est Pt., Level 3 CPT-4 60659 Mar 29, 2016 HEMOGLOBIN CPT-4 89810 Mar 29, 2016 Vital Signs Date/Time: Mar 29, 2016 Cardiac Monitoring Heart Rate 66 bpm Weight 206.6 lbs Height 72 in BMI 28.02 Index Blood Pressure Diastolic 68 mmHg Blood Pressure Systolic 120 mmHg Results No Known Results Summary Purpose [employer] Submission
--- OUTSIDE RECORDS SUMMARY | 2018-07-03 10:58 | XMS REPORT ---
Author Author ROSALINA QUINTERO Organization [employer] Address Unknown Phone Unavailable Care Team Providers Care Rn Peritoneal Dialysis Name Role Phone ROSALINA QUINTERO Unavailable Allergies [...] Date End Date Status Dosage Benicar HCT [facility] [address]-13 40-25 MG Orally Once a day. Needs appt before further refills Aug 31, 2014 1 tablet Results No Known Results Summary Purpose [employer] Submission
--- OUTSIDE RECORDS SUMMARY | 2018-07-03 10:58 | XMS REPORT ---
Author Author ROSALINA QUINTERO [facility] [employer] Address Unknown Phone Unavailable Care Team Providers Care Clinical Program Manager Name Role Phone ROSALINA QUINTERO Unavailable Allergies [...] Instructions Start Date End Date Status Dosage Xarelto [facility] [address]-46 20 MG Orally Once a day 1 tablet with food Results No Known Results Summary Purpose [employer] Submission
--- OUTSIDE RECORDS SUMMARY | 2018-07-03 10:58 | XMS REPORT ---
Author Author YARI BORJAS [facility] Address [address] [place] [address] Care Team Providers Care Engagement Engineer Name Role Phone YARI BORJAS Unavailable PROBLEMS Type Condition ICD9-CM Code [id number] Code Onset Dates Condition Status SNOMED Code Problem Elevated prostate specific antigen (PSA) 790.93 Active 821743078 Problem Diaphragmatic hernia without mention of obstruction or gangrene 553.3 Active 43695269 Problem Thoracic or lumbosacral neuritis or radiculitis, unspecified 724.4 Active 594627198 Problem Other follow-up examination V67.59 Active 737190929 Problem Mixed hyperlipidemia E78.2 Active 398561213 Problem Gastroesophageal reflux disease without esophagitis K21.9 Active 225225875 Problem 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.42 Active 17115508 Problem Gastric ulcer, unspecified as acute or chronic, without mention of hemorrhage, perforation, or obstruction 531.90 Active 06623896 Problem Essential hypertension I10 Active 01472106 Problem Unspecified anemia 285.9 Active 253261988 ALLERGIES No Known Allergies SOCIAL HISTORY Never Assessed PLAN OF CARE Activity Details Follow Up 1 Year Reason:CHM HTN VITAL SIGNS Height 72 in 2017-01-21 Weight 227.4 lbs 2017-01-21 Temperature 96.9 degrees Fahrenheit 2017-01-21 Heart Rate 95 bpm 2017-01-21 Respiratory Rate 18 2017-01-21 BMI 30.84 kg/m2 2017-01-21 Blood pressure systolic 122 mmHg 2017-01-21 Blood pressure diastolic 76 mmHg 2017-01-21 MEDICATIONS Medication Instructions Dosage Frequency Start Date End Date Duration Status Fish Oil 1000 MG Orally Twice a day 1 capsule 12h Active Cozaar 50 mg Orally Once a day 1 tablet 24h Nov, 0 days Active pantoprazole 40 mg by oral route Once a day 1 tablet 24h Aug, 0 Active Aspirin Adult Low Dose 81 MG Orally Once a day 1 tablet 24h Active Uroxatral 10 MG Orally Once a day 1 tablet immediately after the same meal 24h 0 Active RESULTS No Results PROCEDURES No Known procedures IMMUNIZATIONS No Known Immunizations MEDICAL (GENERAL) HISTORY Type Description Date Medical History Diaphragmatic hernia without mention of obstruction or gangrene Medical History Gastric ulcer, unspecified as acute or chronic, without mention of hemorrhage, perforation, or obstruction Medical History Persistent disorder of initiating or maintaining sleep Medical History hypertension Medical History urologic disorder- bph dx 2006 Dr. Soliman Medical History colon [id number] while living in [place]- [facility]/ [facility], last colostomy 2006 Medical History 2010 colonoscopy and reoved several polups, and had an acute bleed 1 week after Medical History 01/2016 had RUQ pain and was found to have tumor on appendix, was removed, FU with Dr. 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 Chao 06/12/2016 Surgical History colonoscopy- 06/12/2016 Surgical History Left Shoulder surgery with screw and is better 2007
--- OUTSIDE RECORDS SUMMARY | 2018-07-03 10:58 | XMS REPORT ---
Author Author ROSALINA QUINTERO [facility] [employer] Address Unknown Phone Unavailable Care Team Providers Care Requirements Engineer Name Role Phone ROSALINA QUINTERO Unavailable Allergies, Adverse Reactions, Alerts Substance Reaction Event Type N.K.D.A. Info Not Available Non Drug Allergy Problems Problem Type Condition Code Onset Dates Condition Status Assessment Essential hypertension I10 Active Problem Persistent disorder of initiating or [...] Date End Date Status Dosage Benicar HCT [facility] [address]-79 40-25 MG Orally Once a day. Needs appt before further refills Aug 31, 2014 1 tablet Percocet [facility] [address]-67 5-325 MG Orally every 6 hrs PRN must last 30 days March 01, 2015 1 tablet as needed pantoprazole [facility] 0 40 mg Aug 31, 2014 take 1 tablet by Oral route 1 time per day Restoril [facility] [address]-16 15 mg Aug 31, 2014 1 capsule by Oral route 1 time per day PRN Procedures Procedure Coding System Code Date Office Visit, Est Pt., Level 3 CPT-4 39195 Sep 21, 2015 Vital Signs Date/Time: Sep 21, 2015 Temperature 98.1 F Weight 222 lbs Height 72 in BMI 30.11 Index Blood Pressure Diastolic 76 mmHg Blood Pressure Systolic 128 mmHg Cardiac Monitoring Heart Rate 102 bpm Results No Known Results Summary Purpose [employer] Submission
--- OUTSIDE RECORDS SUMMARY | 2018-07-03 10:58 | XMS REPORT ---
Author Author YARI BORJAS Organization [facility] Address [address] [place] [address] Care Team Providers Care Emt Dispatcher Name Role Phone YARI BORJAS Unavailable PROBLEMS Type Condition ICD9-CM Code [id number] Code Onset Dates Condition Status SNOMED Code Problem Elevated prostate specific antigen (PSA) 790.93 Active 817394462 Problem Diaphragmatic hernia without mention of obstruction or gangrene 553.3 Active 33099088 Problem Thoracic or lumbosacral neuritis or radiculitis, unspecified 724.4 Active 484469441 Problem Other follow-up examination V67.59 Active 514863407 Problem Mixed hyperlipidemia E78.2 Active 370796989 Problem Gastroesophageal reflux disease without esophagitis K21.9 Active 854128200 Problem 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 Unknown Non Drug Allergy Jul, Unknown SOCIAL HISTORY No smoking Hx information available PLAN OF CARE Activity Details Follow Up 6 Months Reason:CHM HTN VITAL SIGNS Height 72 in 2016-08-14 Weight 214.6 lbs 2016-08-14 Temperature 99.2 degrees Fahrenheit 2016-08-14 Heart Rate 74 bpm 2016-08-14 Respiratory Rate 16 2016-08-14 BMI 29.10 kg/m2 2016-08-14 Blood pressure systolic 118 mmHg 2016-08-14 Blood pressure diastolic 72 mmHg 2016-08-14 MEDICATIONS Medication Instructions Dosage Frequency Start Date End Date Duration Status Aspirin Adult Low Dose 81 MG Orally Once a day 1 tablet 24h Active pantoprazole 40 mg by oral route Once a day 1 tablet 24h Aug, Active Cozaar 25 MG Orally Once a day 1 tablet 24h 12 Mar, 2016 Active Uroxatral 10 MG Orally Once a day 1 tablet immediately after the same meal 24h Active Fish Oil 1000 MG Orally Twice a day 1 capsule 12h Active RESULTS No Results PROCEDURES Procedure Date Ordered Related Diagnosis Body Site Office Visit, Est Pt., Level 4 Aug 14, 2016 IMMUNIZATIONS No Known Immunizations
--- OUTSIDE RECORDS SUMMARY | 2018-07-03 10:58 | XMS REPORT ---
Author Author YARI BORJAS Organization [facility] Address [address] [place] [address] Care Team Providers Care [employer] Name Role Phone PATTIALEXYARI OLIVAS Unavailable PROBLEMS Type Condition ICD9-CM Code KPS68-OY Code Onset Dates Condition Status SNOMED Code Problem BPH without urinary obstruction N40.0 Active 717350056 Problem Gastroesophageal reflux disease without esophagitis K21.9 Active 790896745 Problem Mixed hyperlipidemia E78.2 Active 002756388 Problem Essential hypertension I10 Active 28170656 ALLERGIES No Known Allergies ENCOUNTERS Encounter Location Date Diagnosis [address] [id number] Jan, Essential hypertension I10 ; Mixed hyperlipidemia E78.2 and Fatigue, unspecified type R53.[address] [id number] Jan, Essential hypertension I10 [address] [id number] December, Essential hypertension I10 ; Mixed hyperlipidemia E78.2 ; Gastroesophageal reflux disease without esophagitis K21.9 and BPH without urinary obstruction N40.0 [place] [id number] [place] [id number] Sep, Acute rhinosinusitis J01.90 [facility] [id number] [place] [id number] Sep, [address] [id number] Jan, Essential hypertension I10 ; Mixed hyperlipidemia E78.2 ; Gastroesophageal reflux disease without esophagitis K21.9 and Benign prostatic hyperplasia, presence of lower urinary tract symptoms unspecified N40.0 [address] [id number] Nov, Essential hypertension I10 [facility] [place] [place] [address] [id number] [place] [id number] Sep, Essential hypertension I10 [facility] [place] [address] [id number] [place] [id number] Sep, Essential hypertension I10 [facility] [place] [place] [id number] [place] [id number] Jul, Essential hypertension I10 and History of gastric ulcer Z87.19 [facility] [place] [id number] [place] [id number] May, [facility] [place] [place] [id number] [place] [id number] Mar, Essential hypertension I10 and Fatigue, unspecified type R53.83 [facility] [place] [place] [id number] [place] [id number] Feb, [facility] [place] [id number] [place] [id number] Jan, [facility] [place] [place] [address] [id number] [place] [id number] Oct, [facility] [id number] [place] [id number] Oct, High risk medication use V58.69 ; Essential hypertension I10 and Elevated prostate specific antigen (PSA) R97.2 [facility] [place] [id number] [place] [id number] Sep, Essential hypertension I10 [facility] [place] [id number] [place] [id number] Aug, [facility] [id number] [id number] May, [facility] [id number] [place] [id number] Feb, [facility] [id number] [place] [id number] Feb, High risk medication use V58.69 and Lumbar radicular pain 724.4 [facility] [address] [address] Nov, [facility] [address] [facility] [id number], [place] [address] Nov, [facility] [address] [facility] [id number], [place] [address] Oct, [facility] [address] [facility] [id number] [place] [id number] Oct, [facility] [address] [id number], [place] [address] Aug, [facility] [address] [facility] [id number] [place] [id number] Aug, [facility] [address], [place] [address] Apr, [facility] [id number] [place] [id number] Apr, [facility] [address] [id number] [place] [id number] Mar, [facility] [address] [id number], [place] [address] Mar, [facility] [address] [id number] [place] [id number] Feb, [facility] [address], [place] [address] Feb, [facility] [address] [facility] [id number] [place] [id number] Jan, [facility] [address] [facility] [id number], [place] [address] Jan, [facility] [address] [facility] [id number] [place] [id number] Jan, [facility] [address] [facility] [id number], [place] [address] Jan, [facility] [address] [facility] [id number] [place] [id number] December, [facility] [address] [id number] [address] December, [facility] [address], [place] [address] Nov, [facility] [id number] [place] [id number] Nov, [facility] [id number] [place] [id number] Nov, [facility] [address], [place] [address] Nov, [facility] [id number] [place] [id number] Aug, [facility] [address], [place] [address] Aug, [facility] [address] [place] [id number] Sep, [address] [place] [id number] Jul, [facility] [id number], [place] [address] Jul, [place] [id number], [place] [address] Jul, IMMUNIZATIONS Vaccine Route Administration Date Status DEPO MEDROL 40 MG/ML IM Intramuscular Sep 23, 2017 Administered SOCIAL HISTORY Never Assessed REASON FOR VISIT Pt c/o congestion, some muscle aches, sinus drainage started last week Anton MAYBERRY PLAN OF CARE Activity Details Follow Up prn if not improving Reason: VITAL SIGNS Height 72 in 2017-09-23 Weight 235 lbs 2017-09-23 Temperature 97.8 degrees Fahrenheit 2017-09-23 Heart Rate 102 bpm 2017-09-23 Respiratory Rate 18 2017-09-23 BMI 31.87 kg/m2 2017-09-23 Blood pressure systolic 138 mmHg 2017-09-23 Blood pressure diastolic 80 mmHg 2017-09-23 MEDICATIONS Medication Instructions Dosage Frequency Start Date End Date Duration Status pantoprazole 40 mg by oral route Once a day 1 tablet 24h Aug, 0 Active Aspirin Adult Low Dose 81 MG Orally Once a day 1 tablet 24h Active Uroxatral 10 MG Orally Once a day 1 tablet immediately after the same meal 24h 0 Active Cozaar 50 mg Orally Once a day 1 tablet 24h Nov, 0 days Active Fish Oil 1000 MG Orally Twice a day 1 capsule 12h Active RESULTS No Results PROCEDURES Procedure Date Ordered Result Body Site DEPO MEDROL 40 MG/ML Sep 23, 2017 THER/PROPH/DIAG INJ, SC/IM Sep 23, 2017 INSTRUCTIONS MEDICATIONS ADMINISTERED No Known Medications MEDICAL (GENERAL) HISTORY Type Description Date Medical History Diaphragmatic hernia without mention of obstruction or gangrene Medical History Gastric ulcer, unspecified as acute or chronic, without mention of hemorrhage, perforation, or obstruction Medical History Persistent disorder of initiating or maintaining sleep Medical History hypertension Medical History urologic disorder- bph dx [address] Dr. Soliman Medical History colon [id number] while living in [place]- [facility], [facility] col[facility] 2006 Medical History 2010 colonoscopy [...] tonsillectomy 1958 Surgical History EGD done at [facility] for bleeding ulcer 12/2013 Surgical History colonoscopy f/u in 5 years 2006 Surgical History 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 Chao 06/12/2016 Surgical History colonoscopy- 06/12/2016 Surgical History Left Shoulder surgery with screw and is better 2007
--- OUTSIDE RECORDS SUMMARY | 2018-07-03 10:58 | XMS REPORT ---
Author Author YARI BORJAS [facility] Address [address] [place] [address] Care Team Providers Care Line Controller Name Role Phone YARI BORJAS Unavailable PROBLEMS Type Condition ICD9-CM Code KSM78-GM Code Onset Dates Condition Status SNOMED Code Problem Elevated prostate specific antigen (PSA) 790.93 Active 733397295 Problem Diaphragmatic hernia without mention of obstruction or gangrene 553.3 Active 77184839 Problem Thoracic or lumbosacral neuritis or radiculitis, unspecified 724.4 Active 258037174 Problem Other follow-up examination V67.59 Active 830137813 Problem Mixed hyperlipidemia E78.2 Active 688151032 Problem Gastroesophageal reflux disease without esophagitis K21.9 Active 691047420 Problem 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 Soliman Medical History colon [id number] while living in [facility]/ [facility], last colostomy 2006 Medical History 2011 colonoscopy and reoved several polups, and had an acute bleed 1 week after Medical History 01/2016 had RUQ pain and was found to have tumor on appendix, was removed, FU with Dr. Mahoney every 3 months Surgical History tonsillectomy 1958 Surgical History EGD done at [place] for bleeding ulcer 12/2013 Surgical History colonoscopy f/u in 5 2006 Surgical History 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 Chao 06/12/2016 Surgical History colonoscopy- 06/12/2016 Surgical History Left Shoulder surgery with screw and is better 2007
[2018-07-03] MEDS: NS IV 500 ML 500 ML IV PRN ×4 (11:00→12:20)
--- OUTSIDE RECORDS SUMMARY | 2018-07-03 11:00 | XMS REPORT | Continuity of Care Document ---
Author Author [facility] Address Unknown Phone Unavailable Allergies Active Description Code Type Severity Reaction Onset Reported/Identified Relationship to Patient Clinical Status Yes No Known Drug Allergies [id number] Drug Allergy Unknown N/A 06/25/2018 Medications There is no data. Problems Date Dx Coded Attending Type Code Diagnosis Diagnosed By PANKAJ CAMPOS Ot 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 PANKAJ CAMPOS Ot D64.9 ANEMIA, UNSPECIFIED PANKAJ CAMPOS Ot I10 ESSENTIAL (PRIMARY) HYPERTENSION PANKAJ CAMPOS Ot R71.8 OTHER ABNORMALITY OF RED BLOOD CELLS PANKAJ CAMPOS Ot R97.20 ELEVATED PROSTATE SPECIFIC ANTIGEN [PSA] PANKAJ CAMPOS Ot Z79.899 OTHER SENIOR LIVING (CURRENT) DRUG THERAPY PANKAJ CAMPOS Ot Z85.038 PERSONAL HISTORY OF MALIGNANT NEOPLASM O 09/25/2009 465.9 ACUTE UPPER RESPIRATORY INFECTIONS OF UNSPECIFIED SITE 09/25/2009 YAZ HERNANDEZ MD 465.9 ACUTE UPPER RESPIRATORY INFECTIONS OF UNSPECIFIED SITE 09/25/2009 ELIZABETH RIVERA DO 465.9 ACUTE UPPER RESPIRATORY INFECTIONS OF UNSPECIFIED SITE 09/25/2009 ELIZABETH RIVERA DO 465.9 ACUTE UPPER RESPIRATORY INFECTIONS OF UNSPECIFIED SITE 09/25/2009 ELIZABETH RIVERA DO 465.9 ACUTE UPPER RESPIRATORY INFECTIONS OF UNSPECIFIED SITE 09/25/2009 ROSALINA QUINTERO APRN 465.9 ACUTE UPPER RESPIRATORY INFECTIONS OF UNSPECIFIED SITE 09/25/2009 ELIZABETH RIVERA DO 465.9 ACUTE UPPER RESPIRATORY INFECTIONS OF UNSPECIFIED SITE 11/23/2010 401.1 HYPERTENSION, BENIGN ESSENTIAL 11/23/2010 YAZ HERNANDEZ MD 401.1 HYPERTENSION, BENIGN ESSENTIAL 11/23/2010 ELIZABETH RIVERA DO 401.1 HYPERTENSION, BENIGN ESSENTIAL 11/23/2010 RIVERA DO, ELIZABETH K 401.1 HYPERTENSION, BENIGN ESSENTIAL 11/23/2010 RIVERA DO, ELIZABETH K 401.1 HYPERTENSION, BENIGN ESSENTIAL 11/23/2010 [employer] SALES REPRESENTATIVEROSALINA E 401.1 HYPERTENSION, BENIGN ESSENTIAL 11/23/2010 RIVERA DO, ELIZABETH K 401.1 HYPERTENSION, BENIGN ESSENTIAL 12/15/2013 RIVERA DO, ELIZABETH K 724.4 THORACIC OR LUMBOSACRAL NEURITIS OR RADICULITIS UNSPECIFIED 12/15/2013 RIVERA DO, ELIZABETH K 724.4 THORACIC OR LUMBOSACRAL NEURITIS OR RADICULITIS UNSPECIFIED 12/15/2013 RIVERA DO, ELIZABETH K 724.4 THORACIC OR LUMBOSACRAL NEURITIS OR RADICULITIS UNSPECIFIED 12/15/2013 [employer] SALES REPRESENTATIVEMULUGETAE E 724.4 THORACIC OR LUMBOSACRAL NEURITIS OR RADICULITIS UNSPECIFIED 12/15/2013 RIVERA DO, ELIZABETH K 724.4 THORACIC OR LUMBOSACRAL NEURITIS OR RADICULITIS UNSPECIFIED 01/14/2014 RIVERA DO, ELIZABETH K 531.90 GASTRIC ULCER UNSPECIFIED ACUTE OR CHRONIC WITHOUT HEMORRHAGE OR PERFORATION WITHOUT OBSTRUCTION 01/14/2014 RIVERA DO, ELIZABETH K 553.3 DIAPHRAGMATIC HERNIA WITHOUT OBSTRUCTION OR GANGRENE 01/14/2014 RIVERA DO, ELIZABETH K V67.59 OTHER FOLLOW-UP EXAMINATION 01/14/2014 RIVERA DO, ELIZABETH K 531.90 GASTRIC ULCER UNSPECIFIED ACUTE OR CHRONIC WITHOUT HEMORRHAGE OR PERFORATION WITHOUT OBSTRUCTION 01/14/2014 RIVERA DO, ELIZABETH K 553.3 DIAPHRAGMATIC HERNIA WITHOUT OBSTRUCTION OR GANGRENE 01/14/2014 RIVERA DO, ELIZABETH K V67.59 OTHER FOLLOW-UP EXAMINATION 01/14/2014 [employer] SALES REPRESENTATIVETERRANCEROSALINA E 531.90 GASTRIC ULCER UNSPECIFIED ACUTE OR CHRONIC WITHOUT HEMORRHAGE OR PERFORATION WITHOUT OBSTRUCTION 01/14/2014 [employer] SALES REPRESENTATIVETERRANCEROSALINA E 553.3 DIAPHRAGMATIC HERNIA WITHOUT OBSTRUCTION OR GANGRENE 01/14/2014 [employer]ES REPRESENTATIVE, ROSALINA E V67.59 OTHER FOLLOW-UP EXAMINATION 01/14/2014 RIVERA DO, ELIZABETH K 531.90 GASTRIC ULCER UNSPECIFIED ACUTE OR CHRONIC WITHOUT HEMORRHAGE OR PERFORATION WITHOUT OBSTRUCTION 01/14/2014 RIVERA DO, ELIZABETH K 553.3 DIAPHRAGMATIC HERNIA WITHOUT OBSTRUCTION OR GANGRENE 01/14/2014 ELIZABETH RIVERA DO K V67.59 OTHER FOLLOW-UP EXAMINATION 02/25/2014 ELIZABETH RIVERA DO K 285.9 ANEMIA UNSPECIFIED 02/25/2014 ROSALINA QUINTERO APRN E 285.9 ANEMIA UNSPECIFIED 02/25/2014 ELIZABETH RIVERA DO K 285.9 ANEMIA UNSPECIFIED 05/04/2014 ROSALINA QUINTERO APRN E 790.93 ELEVATED PROSTATE SPECIFIC ANTIGEN [PSA] 05/04/2014 TERRANCE RIVERA DOA K 790.93 ELEVATED PROSTATE SPECIFIC ANTIGEN [PSA] 08/31/2014 ELIZABETH RIVERA DO K 307.42 PERSISTENT DISORDER OF INITIATING OR MAINTAINING SLEEP 01/05/2016 ADEN STONE MD, Ot I10 ESSENTIAL (PRIMARY) HYPERTENSION 01/05/2016 ADEN STONE MD, Ot K63.9 DISEASE OF INTESTINE, UNSPECIFIED 01/05/2016 ADEN STONE MD, Ot M47.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, LUMBAR REGION 01/05/2016 ADEN STONE MD Ot N40.0 ENLARGED PROSTATE WITHOUT LOWER URINARY 01/05/2016 ADEN STONE MD Ot Z85.038 PERSONAL HISTORY OF MALIGNANT NEOPLASM O 01/06/2016 ADEN STONE MD, Ot I10 ESSENTIAL (PRIMARY) HYPERTENSION 01/06/2016 ADEN STONE MD Ot K63.9 DISEASE OF INTESTINE, UNSPECIFIED 01/06/2016 ADEN STONE MD Ot M47.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, LUMBAR REGION 01/06/2016 ADEN STONE MD Ot N40.0 ENLARGED PROSTATE WITHOUT LOWER URINARY 01/06/2016 ADEN STONE MD Ot Z85.038 PERSONAL HISTORY OF MALIGNANT NEOPLASM O 01/08/2016 ADEN STONE MD Ot I10 ESSENTIAL (PRIMARY) HYPERTENSION 01/08/2016 ADEN STONE MD, Ot K63.9 DISEASE OF INTESTINE, UNSPECIFIED 01/08/2016 ADEN STONE MD Ot M47.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, LUMBAR REGION 01/08/2016 ADEN STONE MD Ot N40.0 ENLARGED PROSTATE WITHOUT LOWER URINARY 01/08/2016 ADEN STONE MD Ot Z85.038 PERSONAL HISTORY OF MALIGNANT NEOPLASM O 01/08/2016 KIDO MD, TAKAAKI Ot I10 ESSENTIAL (PRIMARY) HYPERTENSION 01/08/2016 ADEN STONE MD Ot K63.9 DISEASE OF INTESTINE, UNSPECIFIED 01/08/2016 ADEN STONE MD Ot M47.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, LUMBAR REGION 01/08/2016 ADEN STONE MD Ot N40.0 ENLARGED PROSTATE WITHOUT LOWER URINARY 01/08/2016 ADEN STONE MD Ot Z85.038 PERSONAL HISTORY OF MALIGNANT NEOPLASM O 01/09/2016 ADEN STONE MD Ot 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 01/09/2016 ADEN STONE MD Ot 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 01/09/2016 ADEN STONE MD Ot 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 01/09/2016 ADEN STONE MD Ot I10 ESSENTIAL (PRIMARY) HYPERTENSION 01/09/2016 ADEN STONE MD Ot K56.69 OTHER INTESTINAL OBSTRUCTION 01/09/2016 ADEN STONE MD Ot K63.9 DISEASE OF INTESTINE, UNSPECIFIED 01/09/2016 ADEN STONE MD Ot M47.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, LUMBAR REGION 01/09/2016 ADEN STONE MD Ot N40.0 ENLARGED PROSTATE WITHOUT LOWER URINARY 01/09/2016 ADEN STONE MD Ot Z85.038 PERSONAL HISTORY OF MALIGNANT NEOPLASM O 02/06/2016 PANKAJ CAMPOS N Ot 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 02/06/2016 PANKAJ CAMPOS N Ot I10 ESSENTIAL (PRIMARY) HYPERTENSION 02/06/2016 PANKAJ CAMPOS N Ot Z79.899 OTHER SENIOR LIVING (CURRENT) DRUG THERAPY 02/06/2016 JEFF CAMPOSAN N Ot Z85.038 PERSONAL HISTORY OF MALIGNANT NEOPLASM O 02/06/2016 BETH BOBAN N Ot 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 02/06/2016 BETHPANKAJ VANG N Ot Z85.038 PERSONAL HISTORY OF MALIGNANT NEOPLASM O 02/06/2016 BETHJEFFAN N Ot 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 03/25/2016 BETHPANKAJ N Ot 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 03/25/2016 BETHJEFF VANGAN N Ot I10 ESSENTIAL (PRIMARY) HYPERTENSION 03/25/2016 PANKAJ CAMPOS N Ot Z79.899 OTHER SENIOR LIVING (CURRENT) DRUG THERAPY 03/25/2016 BETHPANKAJ VANG N Ot Z85.038 PERSONAL HISTORY OF MALIGNANT NEOPLASM O 04/18/2016 PANKAJ CAMPOS N Ot 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 04/18/2016 PANKAJ CAMPOS N Ot I10 ESSENTIAL (PRIMARY) HYPERTENSION 04/18/2016 BETHPANKAJ VANG N Ot Z79.899 OTHER SIGNAL REPAIRER (CURRENT) DRUG THERAPY 04/18/2016 BETHPANKAJ VANG N Ot Z85.038 PERSONAL HISTORY OF MALIGNANT NEOPLASM O 04/19/2016 PANKAJ CAMPOS N Ot 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 04/19/2016 BETHPANKAJ VANG N Ot I10 ESSENTIAL (PRIMARY) HYPERTENSION 04/19/2016 BETHPANKAJ VANG N Ot Z79.899 OTHER SENIOR LIVING (CURRENT) DRUG THERAPY 04/19/2016 BETHPANKAJ VANG N Ot Z85.038 PERSONAL HISTORY OF MALIGNANT NEOPLASM O 04/29/2016 PANKAJ CAMPOS N Ot 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 04/29/2016 PANKAJ CAMPOS N Ot I10 ESSENTIAL (PRIMARY) HYPERTENSION 04/29/2016 PANKAJ CAMPOS N Ot Z79.899 OTHER SIGNAL REPAIRER (CURRENT) DRUG THERAPY 04/29/2016 BETHPANKAJ VANG N Ot Z85.038 PERSONAL HISTORY OF MALIGNANT NEOPLASM O 05/08/2016 PANKAJ CAMPOS N Ot 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 05/08/2016 PANKAJ CAMPOS N Ot I10 ESSENTIAL (PRIMARY) HYPERTENSION 05/08/2016 PANKAJ CAMPOS N Ot Z79.899 OTHER SIGNAL REPAIRER (CURRENT) DRUG THERAPY 05/08/2016 BETHPANKAJ VANG N Ot Z85.038 PERSONAL HISTORY OF MALIGNANT NEOPLASM O 05/16/2016 ANGELA LATIFP Ot R93.8 ABNORMAL FINDINGS ON DIAGNOSTIC IMAGING 05/16/2016 ANGELA LATIFP Ot R97.2 ELEVATED PROSTATE SPECIFIC ANTIGEN [PSA] 05/16/2016 ANGELA LATIFP Ot Z85.038 PERSONAL HISTORY OF MALIGNANT NEOPLASM O 05/20/2016 ANGELA LATIFP Ot R93.8 ABNORMAL FINDINGS ON DIAGNOSTIC IMAGING 05/20/2016 ANGELA LATIFP Ot R97.2 ELEVATED PROSTATE SPECIFIC ANTIGEN [PSA] 05/20/2016 ANGELA LATIFP Ot Z85.038 PERSONAL HISTORY OF MALIGNANT NEOPLASM O 05/20/2016 PANKAJ CAMPOS Ot 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 05/20/2016 PANKAJ CAMPOS N Ot Z85.038 PERSONAL HISTORY OF MALIGNANT NEOPLASM O 05/20/2016 PANKAJ CAMPOS Ot 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 05/20/2016 PANKAJ CAMPOS Ot 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 05/20/2016 PANKAJ CAMPOS Ot D64.9 ANEMIA, UNSPECIFIED 05/20/2016 PANKAJ CAMPOS Ot I10 ESSENTIAL (PRIMARY) HYPERTENSION 05/20/2016 PANKAJ CAMPOS Ot R71.8 OTHER ABNORMALITY OF RED BLOOD CELLS 05/20/2016 PANKAJ CAMPOS Ot R97.2 ELEVATED PROSTATE SPECIFIC ANTIGEN [PSA] 05/20/2016 PANKAJ CAMPOS Ot Z79.899 OTHER SIGNAL REPAIRER (CURRENT) DRUG THERAPY 05/20/2016 PANKAJ CAMPOS Ot Z85.038 PERSONAL HISTORY OF MALIGNANT NEOPLASM O 05/20/2016 ANGELA LATIF Ot R93.8 ABNORMAL FINDINGS ON DIAGNOSTIC IMAGING 05/20/2016 ANGELA LATIF Ot R97.2 ELEVATED PROSTATE SPECIFIC ANTIGEN [PSA] 05/20/2016 ANGELA LATIF Ot Z85.038 PERSONAL HISTORY OF MALIGNANT NEOPLASM O 06/11/2016 ADEN STONE MD, Ot D64.9 ANEMIA, UNSPECIFIED 06/11/2016 ADEN STONE MD, Ot Z01.818 ENCOUNTER FOR OTHER PREPROCEDURAL EXAMIN 06/11/2016 ADEN STONE MD, Ot Z12.11 ENCOUNTER FOR SCREENING FOR MALIGNANT NE 06/11/2016 ADEN STONE MD, Ot Z85.038 PERSONAL HISTORY OF MALIGNANT NEOPLASM O 06/12/2016 ADEN STONE MD, Ot D12.3 BENIGN NEOPLASM OF TRANSVERSE COLON 06/12/2016 ADEN STONE MD, Ot 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 06/12/2016 ADEN STONE MD, Ot K21.0 GASTRO-ESOPHAGEAL REFLUX DISEASE WITH ES 06/12/2016 ADEN STONE MD, Ot K57.90 DVRTCLOS OF INTEST, PART UNSP, W/O PERF 06/12/2016 ADEN STONE MD, Ot N40.0 BENIGN PROSTATIC HYPERPLASIA WITHOUT LOW 06/12/2016 ADEN STONE MD, Ot Z85.038 PERSONAL HISTORY OF MALIGNANT NEOPLASM O 06/12/2016 ADEN STONE MD, Ot Z85.09 PERSONAL HISTORY OF MALIGNANT NEOPLASM O 06/14/2016 ADEN STONE MD, Ot D12.3 BENIGN NEOPLASM OF TRANSVERSE COLON 06/14/2016 ADEN STONE MD, Ot 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 06/14/2016 ADEN STONE MD, Ot K21.0 GASTRO-ESOPHAGEAL REFLUX DISEASE WITH ES 06/14/2016 ADEN STONE MD, Ot K57.90 DVRTCLOS OF INTEST, PART UNSP, W/O PERF 06/14/2016 ADEN STONE MD, Ot N40.0 BENIGN PROSTATIC HYPERPLASIA WITHOUT LOW 06/14/2016 ADEN STONE MD, Ot Z85.038 PERSONAL HISTORY OF MALIGNANT NEOPLASM O 06/14/2016 ADEN STONE MD, Ot Z85.09 PERSONAL HISTORY OF MALIGNANT NEOPLASM O 06/20/2016 ADEN STONE MD, Ot D12.3 BENIGN NEOPLASM OF TRANSVERSE COLON 06/20/2016 ADEN STONE MD, Ot 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 06/20/2016 ADEN STONE MD, Ot K21.0 GASTRO-ESOPHAGEAL REFLUX DISEASE WITH ES 06/20/2016 ADEN STONE MD, Ot K57.90 DVRTCLOS OF INTEST, PART UNSP, W/O PERF 06/20/2016 ADEN STONE MD, Ot N40.0 BENIGN PROSTATIC HYPERPLASIA WITHOUT LOW 06/20/2016 ADEN STONE MD, Ot Z85.038 PERSONAL HISTORY OF MALIGNANT NEOPLASM O 06/20/2016 ADEN STONE MD, Ot Z85.09 PERSONAL HISTORY OF MALIGNANT NEOPLASM O 07/08/2016 PANKAJ CAMPOS Ot 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 07/08/2016 PANKAJ CAMPOS Ot D64.9 ANEMIA, UNSPECIFIED 07/08/2016 PANKAJ CAMPOS Ot I10 ESSENTIAL (PRIMARY) HYPERTENSION 07/08/2016 PANKAJ CAMPOS Ot R71.8 OTHER ABNORMALITY OF RED BLOOD CELLS 07/08/2016 BETH, BOBAN N Ot R97.2 ELEVATED PROSTATE SPECIFIC ANTIGEN [PSA] 07/08/2016 BETHPANKAJ VANG N Ot Z79.899 OTHER SENIOR LIVING (CURRENT) DRUG THERAPY 07/08/2016 BETHPANKAJ VANG N Ot Z85.038 PERSONAL HISTORY OF MALIGNANT NEOPLASM O 08/05/2016 BETHPANKAJ VANG N Ot 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 08/05/2016 PANKAJ CAMPOS N Ot D64.9 ANEMIA, UNSPECIFIED 08/05/2016 BETHPANKAJ N Ot I10 ESSENTIAL (PRIMARY) HYPERTENSION 08/05/2016 BETHPANKAJ N Ot R71.8 OTHER ABNORMALITY OF RED BLOOD CELLS 08/05/2016 BETHPANKAJ VAGN N Ot R97.2 ELEVATED PROSTATE SPECIFIC ANTIGEN [PSA] 08/05/2016 BETHPANKAJ VANG N Ot Z79.899 OTHER SENIOR LIVING (CURRENT) DRUG THERAPY 08/05/2016 BETHPANKAJ N Ot Z85.038 PERSONAL HISTORY OF MALIGNANT NEOPLASM O 08/06/2016 BETHPANKAJ VANG N Ot 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 08/06/2016 PANKAJ CAMPOS N Ot D64.9 ANEMIA, UNSPECIFIED 08/06/2016 BETHPANKAJ N Ot I10 ESSENTIAL (PRIMARY) HYPERTENSION 08/06/2016 BETHPANKAJ N Ot R71.8 OTHER ABNORMALITY OF RED BLOOD CELLS 08/06/2016 PANKAJ CAMPOS N Ot Z79.899 OTHER SIGNAL REPAIRER (CURRENT) DRUG THERAPY 08/06/2016 BETHPANKAJ VANG N Ot Z85.038 PERSONAL HISTORY OF MALIGNANT NEOPLASM O 08/07/2016 BETHPANKAJ VANG N Ot 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 08/07/2016 PANKAJ CAMPOS N Ot D64.9 ANEMIA, UNSPECIFIED 08/07/2016 BETHPANKAJ N Ot I10 ESSENTIAL (PRIMARY) HYPERTENSION 08/07/2016 BETHPANKAJ N Ot R71.8 OTHER ABNORMALITY OF RED BLOOD CELLS 08/07/2016 BETHPANKAJ VANG N Ot R97.2 ELEVATED PROSTATE SPECIFIC ANTIGEN [PSA] 08/07/2016 BETH BOBLUIS N Ot Z79.899 OTHER SIGNAL REPAIRER (CURRENT) DRUG THERAPY 08/07/2016 BETHPANKAJ N Ot Z85.038 PERSONAL HISTORY OF MALIGNANT NEOPLASM O 09/06/2016 PANKAJ CAMPOS N Ot 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 09/06/2016 PANKAJ CAMPOS N Ot D64.9 ANEMIA, UNSPECIFIED 09/06/2016 PANKAJ CAMPOS N Ot I10 ESSENTIAL (PRIMARY) HYPERTENSION 09/06/2016 PANKAJ CAMPOS N Ot R71.8 OTHER ABNORMALITY OF RED BLOOD CELLS 09/06/2016 PANKAJ CAMPOS N Ot R97.20 ELEVATED PROSTATE SPECIFIC ANTIGEN [PSA] 09/06/2016 PANKAJ CAMPOS N Ot Z79.899 OTHER SIGNAL REPAIRER (CURRENT) DRUG THERAPY 09/06/2016 PANKAJ CAMPOS N Ot Z85.038 PERSONAL HISTORY OF MALIGNANT NEOPLASM O 11/04/2016 PANKAJ CAMPOS N Ot 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 11/04/2016 PANKAJ CAMPOS N Ot D64.9 ANEMIA, UNSPECIFIED 11/04/2016 BETHPANKAJ VANG N Ot I10 ESSENTIAL (PRIMARY) HYPERTENSION 11/04/2016 BETHPANKAJ VANG N Ot R71.8 OTHER ABNORMALITY OF RED BLOOD CELLS 11/04/2016 PANKAJ CAMPOS N Ot R97.20 ELEVATED PROSTATE SPECIFIC ANTIGEN [PSA] 11/04/2016 PANKAJ CAMPOS N Ot Z79.899 OTHER SIGNAL REPAIRER (CURRENT) DRUG THERAPY 11/04/2016 PANKAJ CAMPOS N Ot Z85.038 PERSONAL HISTORY OF MALIGNANT NEOPLASM O 11/05/2016 PANKAJ CAMPOS N Ot 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 11/05/2016 PANKAJ CAMPOS N Ot D64.9 ANEMIA, UNSPECIFIED 11/05/2016 PANKAJ CAMPOS N Ot I10 ESSENTIAL (PRIMARY) HYPERTENSION 11/05/2016 PANKAJ CAMPOS N Ot R71.8 OTHER ABNORMALITY OF RED BLOOD CELLS 11/05/2016 PANKAJ CAMPOS N Ot R97.20 ELEVATED PROSTATE SPECIFIC ANTIGEN [PSA] 11/05/2016 PANKAJ CAMPOS N Ot Z79.899 OTHER SIGNAL REPAIRER (CURRENT) DRUG THERAPY 11/05/2016 PANKAJ CAMPOS N Ot Z85.038 PERSONAL HISTORY OF MALIGNANT NEOPLASM O 11/06/2016 PANKAJ CAMPOS N Ot 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 11/06/2016 PANKAJ CAMPOS N Ot D64.9 ANEMIA, UNSPECIFIED 11/06/2016 BETHPANKAJ VANG N Ot I10 ESSENTIAL (PRIMARY) HYPERTENSION 11/06/2016 PANKAJ CAMPOS N Ot R71.8 OTHER ABNORMALITY OF RED BLOOD CELLS 11/06/2016 PANKAJ CAMPOS N Ot R97.20 ELEVATED PROSTATE SPECIFIC ANTIGEN [PSA] 11/06/2016 PANKAJ CAMPOS N Ot Z79.899 OTHER SENIOR LIVING (CURRENT) DRUG THERAPY 11/06/2016 PANKAJ CAMPOS N Ot Z85.038 PERSONAL HISTORY OF MALIGNANT NEOPLASM O 11/06/2016 Rocío JARVIS MD Ot N40.1 BENIGN PROSTATIC HYPERPLASIA WITH LOWER 11/06/2016 Rocío JARVIS MD Ot R97.20 ELEVATED PROSTATE SPECIFIC ANTIGEN [PSA] 11/10/2016 PANKAJ CAMPOS N Ot 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 11/10/2016 PANKAJ CAMPOS N Ot D64.9 ANEMIA, UNSPECIFIED 11/10/2016 BETHPANKAJ VANG N Ot I10 ESSENTIAL (PRIMARY) HYPERTENSION 11/10/2016 BETHPANKAJ VANG N Ot R71.8 OTHER ABNORMALITY OF RED BLOOD CELLS 11/10/2016 PANKAJ CAMPOS N Ot R97.20 ELEVATED PROSTATE SPECIFIC ANTIGEN [PSA] 11/10/2016 PANKAJ CAMPOS N Ot Z79.899 OTHER SENIOR LIVING (CURRENT) DRUG THERAPY 11/10/2016 PANKAJ CAMPOS N Ot Z85.038 PERSONAL HISTORY OF MALIGNANT NEOPLASM O 02/03/2017 PANKAJ CAMPOS N Ot 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 02/03/2017 PANKAJ CAMPOS N Ot D64.9 ANEMIA, UNSPECIFIED 02/03/2017 BETH BOBAN N Ot I10 ESSENTIAL (PRIMARY) HYPERTENSION 02/03/2017 BETHPANKAJ N Ot R71.8 OTHER ABNORMALITY OF RED BLOOD CELLS 02/03/2017 PANKAJ CAMPOS N Ot R97.20 ELEVATED PROSTATE SPECIFIC ANTIGEN [PSA] 02/03/2017 PANKAJ CAMPOS N Ot Z79.899 OTHER SENIOR LIVING (CURRENT) DRUG THERAPY 02/03/2017 BETHPANKAJ VANG N Ot Z85.038 PERSONAL HISTORY OF MALIGNANT NEOPLASM O 02/05/2017 PANKAJ CAMPOS N Ot 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 02/05/2017 BETHPANKAJ VANG N Ot D64.9 ANEMIA, UNSPECIFIED 02/05/2017 BETH BOBAN N Ot I10 ESSENTIAL (PRIMARY) HYPERTENSION 02/05/2017 BETH JEFFAN N Ot R71.8 OTHER ABNORMALITY OF RED BLOOD CELLS 02/05/2017 PANKAJ CAMPOS N Ot R97.20 ELEVATED PROSTATE SPECIFIC ANTIGEN [PSA] 02/05/2017 PANKAJ CAMPOS N Ot Z79.899 OTHER SENIOR LIVING (CURRENT) DRUG THERAPY 02/05/2017 PANKAJ CAMPOS N Ot Z85.038 PERSONAL HISTORY OF MALIGNANT NEOPLASM O 05/01/2017 PANKAJ CAMPOS N Ot 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 05/01/2017 BETHPANKAJ VANG N Ot D64.9 ANEMIA, UNSPECIFIED 05/01/2017 BETHPANKAJ N Ot I10 ESSENTIAL (PRIMARY) HYPERTENSION 05/01/2017 BETHPANKAJ N Ot R71.8 OTHER ABNORMALITY OF RED BLOOD CELLS 05/01/2017 PANKAJ CAMPOS N Ot R97.20 ELEVATED PROSTATE SPECIFIC ANTIGEN [PSA] 05/01/2017 PANKAJ CAMPOS N Ot Z79.899 OTHER SENIOR LIVING (CURRENT) DRUG THERAPY 05/01/2017 BETHPANKAJ VANG N Ot Z85.038 PERSONAL HISTORY OF MALIGNANT NEOPLASM O 05/05/2017 PANKAJ CAMPOS N Ot 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 05/05/2017 PANKAJ CAMPOS N Ot D64.9 ANEMIA, UNSPECIFIED 05/05/2017 BETH BOBLUIS N Ot I10 ESSENTIAL (PRIMARY) HYPERTENSION 05/05/2017 PANKAJ CAMPOS N Ot R71.8 OTHER ABNORMALITY OF RED BLOOD CELLS 05/05/2017 PANKAJ CAMPOS N Ot R97.20 ELEVATED PROSTATE SPECIFIC ANTIGEN [PSA] 05/05/2017 PANKAJ CAMPOS N Ot Z79.899 OTHER SENIOR LIVING (CURRENT) DRUG THERAPY 05/05/2017 PANKAJ CAMPOS N Ot Z85.038 PERSONAL HISTORY OF MALIGNANT NEOPLASM O 05/14/2017 PANKAJ CAMPOS N Ot 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 05/14/2017 BETHPANKAJ VANG N Ot D64.9 ANEMIA, UNSPECIFIED 05/14/2017 BETHPANKAJ N Ot I10 ESSENTIAL (PRIMARY) HYPERTENSION 05/14/2017 BETH BOBAN N Ot R71.8 OTHER ABNORMALITY OF RED BLOOD CELLS 05/14/2017 BETHPANKAJ VANG N Ot R97.20 ELEVATED PROSTATE SPECIFIC ANTIGEN [PSA] 05/14/2017 BETHPANKAJ VANG N Ot Z79.899 OTHER SIGNAL REPAIRER (CURRENT) DRUG THERAPY 05/14/2017 PANKAJ CAMPOS Keenan Ot Z85.038 PERSONAL HISTORY OF MALIGNANT NEOPLASM O 06/13/2017 ADEN STONE MD, Ot D64.9 ANEMIA, UNSPECIFIED 06/13/2017 ADEN STONE MD Ot Z01.818 ENCOUNTER FOR OTHER PREPROCEDURAL EXAMIN 06/13/2017 ADEN STONE MD, Ot Z85.038 PERSONAL HISTORY OF MALIGNANT NEOPLASM O 06/13/2017 ADEN STONE MD, Ot D64.9 ANEMIA, UNSPECIFIED 06/13/2017 ADEN STONE MD Ot Z01.818 ENCOUNTER FOR OTHER PREPROCEDURAL EXAMIN 06/13/2017 ADEN STONE MD, Ot Z85.038 PERSONAL HISTORY OF MALIGNANT NEOPLASM O 06/13/2017 ADEN STONE MD, Ot D64.9 ANEMIA, UNSPECIFIED 06/13/2017 ADEN STONE MD, Ot Z01.818 ENCOUNTER FOR OTHER PREPROCEDURAL EXAMIN 06/13/2017 ADEN STONE MD, Ot Z85.038 PERSONAL HISTORY OF MALIGNANT NEOPLASM O 06/20/2017 ADEN STONE MD, Ot D12.4 BENIGN NEOPLASM OF DESCENDING COLON 06/20/2017 ADEN STONE MD, Ot I10 ESSENTIAL (PRIMARY) HYPERTENSION 06/20/2017 ADEN STONE MD, Ot K21.9 GASTRO-ESOPHAGEAL REFLUX DISEASE WITHOUT 06/20/2017 ADEN STONE MD, Ot K63.5 POLYP OF COLON 06/20/2017 ADEN STONE MD, Ot K64.1 SECOND DEGREE HEMORRHOIDS 06/20/2017 ADEN STONE MD, Ot M47.816 SPONDYLOSIS W/O MYELOPATHY OR RADICULOPA 06/20/2017 ADEN STONE MD, Ot N40.0 BENIGN PROSTATIC HYPERPLASIA WITHOUT LOW 06/20/2017 ADEN STONE MD, Ot Z08 ENCNTR FOR FOLLOW-UP EXAM AFTER TRTMT FO 06/20/2017 ADEN STONE MD, Ot Z79.899 OTHER SIGNAL REPAIRER (CURRENT) DRUG THERAPY 06/20/2017 ADEN STONE MD, Ot Z85.038 PERSONAL HISTORY OF MALIGNANT NEOPLASM O 06/20/2017 ADEN STONE MD, Ot Z86.718 PERSONAL HISTORY OF OTHER VENOUS THROMBO 06/20/2017 ADEN STONE MD, Ot Z98.0 INTESTINAL BYPASS AND ANASTOMOSIS STATUS 06/25/2017 ADEN STONE MD, Ot D12.4 BENIGN NEOPLASM OF DESCENDING COLON 06/25/2017 ADEN STONE MD, Ot I10 ESSENTIAL (PRIMARY) HYPERTENSION 06/25/2017 ADEN STONE MD, Ot K21.9 GASTRO-ESOPHAGEAL REFLUX DISEASE WITHOUT 06/25/2017 ADEN STONE MD, Ot K63.5 POLYP OF COLON 06/25/2017 ADEN STONE MD, Ot K64.1 SECOND DEGREE HEMORRHOIDS 06/25/2017 ADEN STONE MD, Ot M47.816 SPONDYLOSIS W/O MYELOPATHY OR RADICULOPA 06/25/2017 ADEN STONE MD, Ot N40.0 BENIGN PROSTATIC HYPERPLASIA WITHOUT LOW 06/25/2017 ADEN STONE MD, Ot08 ENCNTR FOR FOLLOW-UP EXAM AFTER TRTMT FO 06/25/2017 ADEN STONE MD, Ot Z79.899 OTHER SIGNAL REPAIRER (CURRENT) DRUG THERAPY 06/25/2017 ADEN STONE MD, Ot Z85.038 PERSONAL HISTORY OF MALIGNANT NEOPLASM O 06/25/2017 ADEN STONE MD, Ot Z86.718 PERSONAL HISTORY OF OTHER VENOUS THROMBO 06/25/2017 ADEN STONE MD, Ot Z98.0 INTESTINAL BYPASS AND ANASTOMOSIS STATUS 06/26/2017 ADEN STONE MD, Ot D12.4 BENIGN NEOPLASM OF DESCENDING COLON 06/26/2017 ADEN STONE MD, Ot I10 ESSENTIAL (PRIMARY) HYPERTENSION 06/26/2017 ADEN STONE MD, Ot K21.9 GASTRO-ESOPHAGEAL REFLUX DISEASE WITHOUT 06/26/2017 ADEN STONE MD, Ot K63.5 POLYP OF COLON 06/26/2017 ADEN STONE MD, Ot K64.1 SECOND DEGREE HEMORRHOIDS 06/26/2017 ADEN STONE MD, Ot M47.816 SPONDYLOSIS W/O MYELOPATHY OR RADICULOPA 06/26/2017 ADEN STONE MD, Ot N40.0 BENIGN PROSTATIC HYPERPLASIA WITHOUT LOW 06/26/2017 ADEN STONE MD, Ot Z08 ENCNTR FOR FOLLOW-UP EXAM AFTER TRTMT FO 06/26/2017 ADEN STONE MD, Ot79.899 OTHER SENIOR LIVING (CURRENT) DRUG THERAPY 06/26/2017 ADEN STONE MD, Ot Z85.038 PERSONAL HISTORY OF MALIGNANT NEOPLASM O 06/26/2017 ADEN STONE MD Ot Z86.718 PERSONAL HISTORY OF OTHER VENOUS THROMBO 06/26/2017 ADEN STONE MD Ot Z98.0 INTESTINAL BYPASS AND ANASTOMOSIS STATUS 09/04/2017 BETH, BOBAN N Ot 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 09/04/2017 BETH, BOBAN N Ot D64.9 ANEMIA, UNSPECIFIED 09/04/2017 BETH, BOBAN N Ot I10 ESSENTIAL (PRIMARY) HYPERTENSION 09/04/2017 BETH, BOBAN N Ot R97.20 ELEVATED PROSTATE SPECIFIC ANTIGEN [PSA] 09/04/2017 BETH, BOBAN N Ot Z79.899 OTHER SIGNAL REPAIRER (CURRENT) DRUG THERAPY 09/04/2017 BETH, BOBAN N Ot Z85.038 PERSONAL HISTORY OF MALIGNANT NEOPLASM O 11/04/2017 [employer] SALES REPRESENTATIVE Ot N40.1 BENIGN PROSTATIC HYPERPLASIA WITH LOWER 11/04/2017 [employer] SALES REPRESENTATIVE Ot R97.20 ELEVATED PROSTATE SPECIFIC ANTIGEN [PSA] 12/22/2017 BETH, BOBAN N Ot 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 12/22/2017 BETH, BOBAN N Ot D64.9 ANEMIA, UNSPECIFIED 12/22/2017 BETH, BOBAN N Ot I10 ESSENTIAL (PRIMARY) HYPERTENSION 12/22/2017 BETH, BOBAN N Ot Z79.899 OTHER SIGNAL REPAIRER (CURRENT) DRUG THERAPY 12/22/2017 BETH, BOBAN N Ot Z85.038 PERSONAL HISTORY OF MALIGNANT NEOPLASM O 02/01/2018 BETH, BOBAN N Ot 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 02/01/2018 BETH, BOBAN N Ot D64.9 ANEMIA, UNSPECIFIED 02/01/2018 BETH, BOBAN N Ot I10 ESSENTIAL (PRIMARY) HYPERTENSION 02/01/2018 BETH, BOBAN N Ot Z79.899 OTHER SENIOR LIVING (CURRENT) DRUG THERAPY 02/01/2018 BETH, BOBAN N Ot Z85.038 PERSONAL HISTORY OF MALIGNANT NEOPLASM O 02/07/2018 BETH, BOBAN N Ot 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 02/07/2018 BETH, BOBAN N Ot D64.9 ANEMIA, UNSPECIFIED 02/07/2018 BETH BOBAN N Ot I10 ESSENTIAL (PRIMARY) HYPERTENSION 02/07/2018 BETHPANKAJ N Ot Z79.899 OTHER SENIOR LIVING (CURRENT) DRUG THERAPY 02/07/2018 BETHPANKAJ VANG N Ot Z85.038 PERSONAL HISTORY OF MALIGNANT NEOPLASM O 03/05/2018 BETHPANKAJ VANG N Ot 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 03/05/2018 BETHPANKAJ VANG N Ot D64.9 ANEMIA, UNSPECIFIED 03/05/2018 BETH BOBAN N Ot I10 ESSENTIAL (PRIMARY) HYPERTENSION 03/05/2018 BETHJEFFAN N Ot Z79.899 OTHER SENIOR LIVING (CURRENT) DRUG THERAPY 03/05/2018 BETHPANKAJ VANG N Ot Z85.038 PERSONAL HISTORY OF MALIGNANT NEOPLASM O 03/17/2018 BETHPANKAJ VANG N Ot 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 03/17/2018 BETHPANKAJ VANG N Ot D64.9 ANEMIA, UNSPECIFIED 03/17/2018 BETH BOBLUIS N Ot I10 ESSENTIAL (PRIMARY) HYPERTENSION 03/17/2018 BETHPANKAJ N Ot Z79.899 OTHER SIGNAL REPAIRER (CURRENT) DRUG THERAPY 05/01/2018 PANKAJ CAMPOS N Ot 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 05/01/2018 BETHPANKAJ VANG N Ot D64.9 ANEMIA, UNSPECIFIED 05/01/2018 BETH BOBAN N Ot I10 ESSENTIAL (PRIMARY) HYPERTENSION 05/01/2018 BETH BOBLUIS N Ot Z79.899 OTHER SIGNAL REPAIRER (CURRENT) DRUG THERAPY 05/11/2018 SHARONA GARCIA MD Ot E61.1 IRON DEFICIENCY 05/11/2018 SHARONA GARCIA MD Ot E66.9 OBESITY, UNSPECIFIED 05/11/2018 SHARONA GARCIA MD Ot E78.2 MIXED HYPERLIPIDEMIA 05/11/2018 SHARONA GARCIA MD Ot I10 ESSENTIAL (PRIMARY) HYPERTENSION 05/11/2018 SHARONA GARCIA MD Ot I35.1 NONRHEUMATIC AORTIC (VALVE) INSUFFICIENC 05/13/2018 SHARONA GARCIA MD Ot E61.1 IRON DEFICIENCY 05/13/2018 SHARONA GARCIA MD Ot E66.9 OBESITY, UNSPECIFIED 05/13/2018 SHARONA GARCIA MD Ot E78.2 MIXED HYPERLIPIDEMIA 05/13/2018 SHARONA GARCIA MD Ot I10 ESSENTIAL (PRIMARY) HYPERTENSION 05/13/2018 SHARONA GARCIA MD Ot I35.1 NONRHEUMATIC AORTIC (VALVE) INSUFFICIENC 05/20/2018 PANKAJ CAMPOS Ot 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 05/20/2018 PANKAJ CAMPOS Ot D64.9 ANEMIA, UNSPECIFIED 05/20/2018 PANKAJ CAMPOS Ot I10 ESSENTIAL (PRIMARY) HYPERTENSION 05/20/2018 PANKAJ CAMPOS Ot Z79.899 OTHER SIGNAL REPAIRER (CURRENT) DRUG THERAPY 06/08/2018 SHARONA GARCIA MD Ot E61.1 IRON DEFICIENCY 06/08/2018 SHARONA GARCIA MD Ot E66.9 OBESITY, UNSPECIFIED 06/08/2018 SHARONA GARCIA MD Ot E78.2 MIXED HYPERLIPIDEMIA 06/08/2018 SHARONA GARCIA MD Ot I10 ESSENTIAL (PRIMARY) HYPERTENSION 06/08/2018 SHARONA GARCIA MD Ot I35.1 NONRHEUMATIC AORTIC (VALVE) INSUFFICIENC 06/25/2018 PANKAJ CAMPOS Ot 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 06/25/2018 PANKAJ CAMPOS Ot D64.9 ANEMIA, UNSPECIFIED 06/25/2018 PANKAJ CAMPOS Ot I10 ESSENTIAL (PRIMARY) HYPERTENSION 06/25/2018 PANKAJ CAMPOS Ot Z79.899 OTHER SENIOR LIVING (CURRENT) DRUG THERAPY 06/25/2018 ADEN STONE MD Ot Z01.818 ENCOUNTER FOR OTHER PREPROCEDURAL EXAMIN 06/29/2018 ADEN STONE MD Ot Z01.818 ENCOUNTER FOR OTHER PREPROCEDURAL EXAMIN Procedures Code Description [place] [id number] ROUTINE VENIPUNCTURE 01/14/2014 80171 CBC 01/14/2014 [id number] GFR CALC (RESULT ONLY) 01/14/2014 48292 RENAL PROFILE 01/14/2014 72665 HEMOGLOBIN (IN-HOUSE) 02/25/2014 97474 ROUTINE VENIPUNCTURE 05/04/2014 44004 CBC 05/04/2014 [id number] GFR CALC (RESULT ONLY) 05/04/2014 27659 CMP 05/04/2014 65690 LIPID PANEL 05/04/2014 71223 PSA TOTAL 05/04/2014 12680 TSH 05/04/2014 45833 ASSAY OF PSA TOTAL 05/26/2014 05557 HEMOGLOBIN (IN-HOUSE) 08/31/2014 [id number] 01/05/2016 [id number] 01/05/2016 [id number] 01/05/2016 Results Test Result Range Prostate specific ag [mass/volume] in serum or plasma - 11/05/16 13:09 Prostate specific ag [mass/volume] in serum or plasma 2.88 % 0.00-4.00 Prostate specific ag [mass/volume] in serum or plasma - 11/03/17 10:30 Prostate specific ag [mass/volume] in serum or plasma 3.07 % 0.00-4.00 MAGNESIUM SERUM - 02/09/18 09:52 MAGNESIUM 2.0 mg/dL 1.5-2.5 Encounters ACCT No. Visit Date/Time Discharge Status Pt. Type Provider Facility Loc./Unit Complaint [id number] 08/31/2014 08:39:00 08/31/2014 23:59:59 CLS Outpatient ELIZABETH RIVERA DO [id number] 05/04/2014 08:06:00 05/04/2014 23:59:59 CLS Outpatient ROSALINA QUINTERO APRN [id number] 02/25/2014 09:25:00 02/25/2014 23:59:59 CLS Outpatient ELIZABETH RIVERA DO [id number] 01/14/2014 09:22:00 01/14/2014 23:59:59 CLS Outpatient ELIZABETH RIVERA DO [id number] 12/15/2013 08:20:00 12/15/2013 23:59:59 CLS Outpatient ELIZABETH RIVERA DO [id number] 09/18/2012 15:37:00 09/18/2012 23:59:59 CLS Outpatient YAZ HERNANDEZ MD [id number] 05/24/2011 11:22:00 05/24/2011 23:59:59 CLS Outpatient [id number] 06/25/2018 05:48:00 06/25/2018 09:57:00 DIS Outpatient ADEN STONE MD [facility] PREOP COLONOSCOPY [id number] 05/18/2018 00:19:00 05/18/2018 23:59:59 CLS Preadmit PANKAJ CAMPOS [facility] ONC [id number] 05/06/2018 08:35:00 05/06/2018 23:59:59 CLS Outpatient SHARONA GARCIA MD [facility] CARD HTN,IRON DEFICIENCY [id number] 03/03/2018 13:19:00 03/17/2018 00:01:00 DIS Outpatient PANKAJ CAMPOS [facility] ONC [id number] 11/03/2017 10:20:00 02/01/2018 00:01:00 DIS Outpatient PANKAJ CAMPOS [facility] ONC [id number] 11/03/2017 10:37:00 11/03/2017 23:59:59 CLS Outpatient MT REED APRN [facility] LAB [id number] 08/04/2017 12:57:00 08/04/2017 23:59:59 CLS Outpatient PANKAJ CAMPOS [facility] ONC [id number] 06/20/2017 11:45:00 06/20/2017 14:50:00 DIS Outpatient ADEN STONE MD [facility] ENDO history colon CA [id number] 06/13/2017 06:32:00 06/13/2017 11:45:00 DIS Outpatient ADEN STONE MD [facility] PREOP HISTORY COLON CANCER [id number] 05/05/2017 02:05:00 05/14/2017 09:14:00 DIS Outpatient PANKAJ CAMPOS [facility] ONC [id number] 02/04/2017 12:56:00 05/01/2017 10:45:00 DIS Outpatient PANKAJ CAMPOS [facility] ONC [id number] 11/05/2016 13:14:00 02/03/2017 00:01:00 DIS Outpatient PANKAJ CAMPOS [facility] ONC [id number] 11/05/2016 13:07:00 11/05/2016 23:59:59 CLS Outpatient Rocío JARVIS MD [facility] LAB [id number] 08/06/2016 12:49:00 11/04/2016 00:01:00 DIS Outpatient PANKAJ CAMPOS [facility] ONC [id number] 05/09/2016 14:56:00 08/05/2016 00:01:00 DIS Outpatient BETH PANKAJ Hussein [facility] ONC [id number] 06/12/2016 08:15:00 06/12/2016 11:45:00 DIS Outpatient ADEN STONE MD [facility] SDC HISTORY COLON CANCER; ANEMIA [id number] 06/10/2016 05:38:00 06/10/2016 13:14:00 DIS Outpatient ADEN STONE MD [facility] PREOP HISTORY OF COLON CANCER ;ANEMIA [id number] 05/16/2016 10:12:00 05/16/2016 23:59:59 CLS Outpatient ANGELA LATIF [facility] RAD HX OF COLON CA, ABNORMAL CT SCAN [id number] 02/09/2016 09:38:00 04/18/2016 00:01:00 DIS Outpatient BETH JEFFLUIS Keenan [facility] ONC [id number] 02/06/2016 10:06:00 02/06/2016 23:59:59 CLS Outpatient PANKAJ CAMPOS [facility] RAD MALIGNANT NEOPLASM OF APPENDIX [id number] 02/02/2016 10:30:00 02/02/2016 23:59:59 CLS Outpatient PANKAJ CAMPOS [facility] RAD MALIGNANT NEOPLASM [id number] 01/04/2016 10:16:00 01/09/2016 12:08:00 DIS Inpatient ADEN STONE MD [facility] 4TH LOWER ABD/RIGHT SIDE PAIN [id number] 07/03/2018 10:37:00 ACT Outpatient ADEN STONE MD [facility] ENDO SCREENING [id number] 02/03/2018 08:20:00 02/03/2018 23:59:59 CLS Outpatient YARI BORJAS [facility]ORN [id number] 02/09/2018 08:40:00 Document Registration
[2018-07-03 11:12] VITALS: BP 86/61
--- NOTE | 2018-07-03 11:43 | Conscious Sedation/ASA ---
Conscious Sedation Pre-Proced Time 11:00 ASA Score 2 For ASA 3 and 4: Consider anesthesia and medical clearance. Also, for patients with a history of failed moderate sedation consider anesthesia. Airway Lungs Heart ASA score ASA 1: a normal healthy patient ASA 2: a patient with a mild systemic disease (mid diabetes, controlled hypertension, obesity ASA 3: a patient with a severe systemic disease that limits activity (angina , COPD, prior Myocardial infarction) ASA 4: a patient with an incapacitating disease that is a constant threat to life (CHF, renal failure) ASA 5: a moribund patient not expected to survive 24 hrs. (ruptured aneurysm) ASA 6: a declared brain patient whose organs are being harvested. For emergent operations, add the letter E after the classification Mallampati Classification Grade 2 Sedation Plan Analgesia, Amnesia, Plan communicated to team members, Discussed options with patient/fam, Discussed risks with patient/fam The patient is an appropriate candidate to undergo the planned procedure, sedation, and anesthesia. The patient immediately re-assessed prior to indication. ADEN STONE MD Jul 03, 2018 11:43 am
--- NOTE | 2018-07-03 11:44 | Progress Note-Pre Operative ---
Pre-Operative Progress Note H&P Reviewed The H&P was reviewed, patient examined and no changes noted. Date Seen by Provider: Jul 03, 2018 Time Seen by Provider: 11:00 Date H&P Reviewed: Jul 03, 2018 Time H&P Reviewed: 11:00 Pre-Operative Diagnosis: hx colon cancer ADEN STONE MD Jul 03, 2018 11:43 am
--- NOTE | 2018-07-03 12:28 | Progress Note-Post Operative ---
Post-Operative Progess Note Surgeon (s)/Brick Shader (s) Surgeon ADEN STONE MD Brick Shader: none Pre-Operative Diagnosis hx colon cancer Post-Operative Diagnosis ascending colon polyp x3, descending polyp x1(all <5mm), normal ileorectal anastamosis. Procedure & Operative Findings Date of Procedure 07/03/18 Procedure Performed/Findings Colonoscopy with bx. Anesthesia Type CS Estimated Blood Loss Estimated blood loss (mL): minimal Specimens/Packing Specimens Removed asc colon polyp x3, desc x1 ADEN STONE MD Jul 03, 2018 12:28 pm
--- NOTE | 2018-07-03 12:29 | Discharge Inst-Surgical ---
D/C Lap Instructions-BERTHA Follow Up 3 years. Activity as tolerated High Fiber Diet 25g or more per day Avoid Alcohol, Caffeine, Spicy [place] and Acid foods. Drink 64 fluid oz or more of fluids per day. Symptoms to Report: Fever over 101 degree F, Nausea/Vomiting If any problems/questions: Contact your physician or go to Emergency Room ADEN STONE MD Jul 03, 2018 12:29 pm
--- NOTE | 2018-07-03 19:49 | OPERATIVE REPORT ---
DATE OF SERVICE: 07/03/2018 ATTENDING PRIMARY CARE PHYSICIAN: [facility]. PREOPERATIVE DIAGNOSIS: History of metachronous colon cancer. POSTOPERATIVE DIAGNOSES: History of metachronous colon cancer with three small polyps of the ascending colon and a single polyp of the descending colon, all less than 5 mm in size. PROCEDURE: Colonoscopy with biopsy. SURGEON: Aden Stone MD ANESTHESIA: Conscious sedation. ESTIMATED BLOOD LOSS: Minimal. FINDINGS: Normal ileorectal anastomosis. There were three small pedunculated polyps of the ascending colon, all less than 5 mm in size. There was a similar type of polyp of the descending colon. These were biopsied using forceps and electrocautery. DISPOSITION: The patient tolerated the procedure well. INDICATIONS: The patient is a 63-year-old male known to us. He initially presented to the Emergency Department with a four day history of abdominal pain on 01/04/2016. A CT scan was performed, which showed chronic inflammatory changes of the appendix consistent with a chronic appendicitis. There was also an adjacent cecal mass, which was worrisome for neoplasm. He underwent an exploratory laparotomy with segmental small bowel resection with resection of the lesion as well as small bowel resection and anastomosis on 04/22/2016. Pathology came back as an adenocarcinoma with acute appendicitis. Upon further questioning, he is originally from [place], was found to have a left-sided colon lesion, which was found to be a cancer and he underwent what he believes to be a left hemicolectomy in 1999. He moved to [place] around 2005. We did an EGD and colonoscopy on him in 05/2016. He was found to have small polyps of the transverse and descending colon, which were biopsied and benign. He underwent a followup colonoscopy in 06/2017 and found to have mild hemorrhoids as well as two small polyps of the descending colon, 2 mm in size, one was a tubular adenoma and the other one was a hyperplastic polyp. At this time, he is doing well, does not report any issues. DESCRIPTION OF PROCEDURE: The patient was brought to the endoscopy suite, laid in left lateral decubitus position. After adequate IV pain and sedative medications and conscious sedation anesthesia, a digital rectal examination was performed. Mild chronic stage II external and internal hemorrhoids were identified, which were not actively edematous or inflamed with no bleeding. Normal sphincter tone was felt and there were no palpable masses. Prostate gland was palpable and appeared normal. The endoscope was then intubated to the anus and rectum was gently insufflated. The endoscope was then advanced through the valves of Jiang in the rectum with no polyps or any neoplasms identified. We then proceeded to the sigmoid colon where no diverticulosis identified. At the descending colon, a small polyp approximately 2 mm in size identified. This appeared to be a benign hyperplastic polyp. This was biopsied and destroyed using forceps and electrocautery. The endoscope was then advanced to the transverse colon, to the ascending colon, into the ileorectal anastomosis. The anastomosis appeared normal with no recurrent tumors. There were three small polyps identified at the ascending colon, one proximal and two distal that were adjacent to each other, all within 5 mm in size. All 3 of these were biopsied and destroyed using forceps and electrocautery with visualization of good hemostasis. The endoscope was then slowly withdrawn while taking a second look and suctioning of residual air with no additional findings. The patient tolerated the procedure well. We will recommend continued close surveillance with colonoscopy at least every 3 years as well as a high fiber diet with at least 30 grams of fiber per day to promote soft stools on a daily basis. With a history of metachronous colon cancer as well as history of polyps, he may have a predisposition to colon cancer and may elect for a subtotal colectomy at some point; however, this decision will be up to the patient. Job ID: [id number] DocumentID: [id number] Dictated Date: 07/03/2018 12:36:33 Law Firm Receptionist Date: 07/03/2018 19:48:59 Dictated By: ADEN STONE MD
== END | disposition home or self-care (01) ==
LOC: ENDO 10:37
PROVIDERS: ATTEND Surgery
DX: Z12.11 Encounter for screening for malignant neoplasm of colon (principal); D12.2 Benign neoplasm of ascending colon; D12.4 Benign neoplasm of descending colon; K63.5 Polyp of colon; Z85.038 Personal history of other malignant neoplasm of large intestine; Z98.0 Intestinal bypass and anastomosis status; I10 Essential (primary) hypertension; K21.9 Gastro-esophageal reflux disease without esophagitis; N40.0 Benign prostatic hyperplasia without lower urinary tract symptoms; Z86.718 Personal history of other venous thrombosis and embolism; Z79.899 Other long term (current) drug therapy

== ENCOUNTER 2018-09-01 14:11 | Outpatient (RCR) | payer OTHER ==
[~2018-09-01 14:11] MED LIST changes: -ACETAMINOPHEN 325 MG TABLET PO PRN; -HYDROcodone/APAP 5 MG/325 MG (LORTAB) TAB PO PRN; -LIDOCAINE JELLY 2% 6 ML SYRINGE MM PRN; -LIDOCAINE JELLY 2% 6 ML SYRINGE ONE; -MIDAZOLAM 2 MG/2 ML (VERSED) VIAL IVP ONE; -MIDAZOLAM 2 MG/2 ML (VERSED) VIAL ONE; -NS IV 500 ML 500 ML ONE; -ONDANSETRON 4 MG/2 ML (SDV) Z0FRAN IV PRN; -fentaNYL INJECTION 100 MCG/2 ML AMP IVP ONE; -fentaNYL INJECTION 100 MCG/2 ML AMP ONE; -morphine INJ 10 MG/ML 1ML (SYR OR VIAL) IV PRN
[2018-09-01 14:44] LABS: BASOPHILS # (AUTO) 0.1 10^3/uL (0.0-0.1); BASOPHILS % (AUTO) 1 % (0-10); EOSINOPHILS # (AUTO) 0.2 10^3/uL (0.0-0.3); EOSINOPHILS % (AUTO) 3 % (0-10); HEMATOCRIT 49 % (40-54); HEMOGLOBIN 16.8 G/DL (13.3-17.7); LYMPHOCYTES # (AUTO) 1.6 X 10^3 (1.0-4.0); LYMPHOCYTES % (AUTO) 25 % (12-44); MEAN CORPUSCULAR HEMOGLOBIN 30 PG (25-34); MEAN CORPUSCULAR HGB CONC 34 G/DL (32-36); MEAN CORPUSCULAR VOLUME 86 FL (80-99); MEAN PLATELET VOLUME 10.5 FL (7.4-10.4); MONOCYTES # (AUTO) 0.7 X 10^3 (0.0-1.0); MONOCYTES % (AUTO) 10 % (0-12); NEUTROPHILS # (AUTO) 3.9 X 10^3 (1.8-7.8); NEUTROPHILS % (AUTO) 61 % (42-75); PLATELET COUNT 204 10^3/uL (130-400); RED CELL DISTRIBUTION WIDTH 13.7 % (10.0-14.5); WHITE BLOOD COUNT 6.4 10^3/uL (4.3-11.0)
[2018-09-01 15:07] LABS: ALANINE AMINOTRANSFERASE 43 U/L (0-55); ALBUMIN 4.3 GM/DL (3.2-4.5); ALKALINE PHOSPHATASE 68 U/L (40-136); BILIRUBIN,TOTAL 0.4 MG/DL (0.1-1.0); BUN/CREATININE RATIO 17; CARBON DIOXIDE 21 MMOL/L (21-32); CHLORIDE 109 MMOL/L (98-107); CREATININE SERUM 0.89 MG/DL (0.60-1.30); GFR ESTIMATED > 60; GLUCOSE 105 MG/DL (70-105); POTASSIUM 3.8 MMOL/L (3.6-5.0); SODIUM 140 MMOL/L (135-145); TOTAL PROTEIN 7.2 GM/DL (6.4-8.2)
== END 2018-11-30 | disposition home or self-care (01) ==
LOC: ONC 14:11
PROVIDERS: ATTEND Internal Medicine Hematology & Oncology
DX: C18.1 Malignant neoplasm of appendix (principal); D64.9 Anemia, unspecified; I10 Essential (primary) hypertension; Z79.899 Other long term (current) drug therapy
CPT/HCPCS: 36415; 80053; 82378; 85025; 99213

== ENCOUNTER 2019-03-01 14:41 | Outpatient (RCR) | payer OTHER ==
[~2019-03-01 14:41] MED LIST changes: +CYAN-41 PO; -CYAN10006 PO
[2019-03-01 14:51] LABS: BASOPHILS # (AUTO) 0.1 10^3/uL (0.0-0.1); BASOPHILS % (AUTO) 1 % (0-10); EOSINOPHILS # (AUTO) 0.2 10^3/uL (0.0-0.3); EOSINOPHILS % (AUTO) 3 % (0-10); HEMATOCRIT 47 % (40-54); HEMOGLOBIN 16.6 G/DL (13.3-17.7); LYMPHOCYTES # (AUTO) 1.8 X 10^3 (1.0-4.0); LYMPHOCYTES % (AUTO) 29 % (12-44); MEAN CORPUSCULAR HEMOGLOBIN 29 PG (25-34); MEAN CORPUSCULAR HGB CONC 35 G/DL (32-36); MEAN CORPUSCULAR VOLUME 84 FL (80-99); MEAN PLATELET VOLUME 10.4 FL (7.4-10.4); MONOCYTES # (AUTO) 0.6 X 10^3 (0.0-1.0); MONOCYTES % (AUTO) 10 % (0-12); NEUTROPHILS # (AUTO) 3.5 X 10^3 (1.8-7.8); NEUTROPHILS % (AUTO) 57 % (42-75); PLATELET COUNT 202 10^3/uL (130-400); RED CELL DISTRIBUTION WIDTH 13.8 % (10.0-14.5); WHITE BLOOD COUNT 6.1 10^3/uL (4.3-11.0)
[2019-03-01 15:11] LABS: ALANINE AMINOTRANSFERASE 35 U/L (0-55); ALBUMIN 4.4 GM/DL (3.2-4.5); ALKALINE PHOSPHATASE 74 U/L (40-136); BILIRUBIN,TOTAL 0.4 MG/DL (0.1-1.0); BUN/CREATININE RATIO 20; CALCIUM 9.3 MG/DL (8.5-10.1); CARBON DIOXIDE 19 MMOL/L (21-32); CHLORIDE 112 MMOL/L (98-107); CREATININE SERUM 0.86 MG/DL (0.60-1.30); GFR ESTIMATED > 60; GLUCOSE 100 MG/DL (70-105); POTASSIUM 3.9 MMOL/L (3.6-5.0); SODIUM 141 MMOL/L (135-145); TOTAL PROTEIN 7.3 GM/DL (6.4-8.2)
== END 2019-05-30 | disposition home or self-care (01) ==
LOC: ONC 14:41
PROVIDERS: ATTEND Internal Medicine Hematology & Oncology
DX: C18.1 Malignant neoplasm of appendix (principal); D64.9 Anemia, unspecified; I10 Essential (primary) hypertension; Z79.899 Other long term (current) drug therapy
CPT/HCPCS: 36415; 80053; 82378; 85025; 99213

== ENCOUNTER → 2019-08-31 | Outpatient (CLI) | payer OTHER ==
[~2019-08-31] MED LIST changes: -ALFU10TA11 PO; +ALFU10TA12 PO
[2019-08-31 09:27] LABS: BASOPHILS # (AUTO) 0.1 10^3/uL (0.0-0.1); BASOPHILS % (AUTO) 1 % (0-10); EOSINOPHILS # (AUTO) 0.2 10^3/uL (0.0-0.3); EOSINOPHILS % (AUTO) 4 % (0-10); HEMATOCRIT 50 % (40-54); HEMOGLOBIN 17.2 G/DL (13.3-17.7); LYMPHOCYTES # (AUTO) 1.7 X 10^3 (1.0-4.0); LYMPHOCYTES % (AUTO) 31 % (12-44); MEAN CORPUSCULAR HEMOGLOBIN 29 PG (25-34); MEAN CORPUSCULAR HGB CONC 35 G/DL (32-36); MEAN CORPUSCULAR VOLUME 85 FL (80-99); MEAN PLATELET VOLUME 10.5 FL (7.4-10.4); MONOCYTES # (AUTO) 0.5 X 10^3 (0.0-1.0); MONOCYTES % (AUTO) 10 % (0-12); NEUTROPHILS # (AUTO) 2.8 X 10^3 (1.8-7.8); NEUTROPHILS % (AUTO) 53 % (42-75); PLATELET COUNT 194 10^3/uL (130-400); RED CELL DISTRIBUTION WIDTH 14.6 % (10.0-14.5); WHITE BLOOD COUNT 5.3 10^3/uL (4.3-11.0)
[2019-08-31 09:51] LABS: ALANINE AMINOTRANSFERASE 52 U/L (0-55); ALBUMIN 4.4 GM/DL (3.2-4.5); ALKALINE PHOSPHATASE 82 U/L (40-136); BILIRUBIN,TOTAL 0.6 MG/DL (0.1-1.0); BUN/CREATININE RATIO 16; CARBON DIOXIDE 18 MMOL/L (21-32); CHLORIDE 112 MMOL/L (98-107); CREATININE SERUM 0.85 MG/DL (0.60-1.30); GFR ESTIMATED > 60; GLUCOSE 93 MG/DL (70-105); SODIUM 141 MMOL/L (135-145); TOTAL PROTEIN 7.1 GM/DL (6.4-8.2)
== END ==
LOC: EDSTATUS 05-31 08:50 → ONC 08:54
PROVIDERS: ATTEND Internal Medicine Hematology & Oncology
DX: C18.1 Malignant neoplasm of appendix (principal); Z85.038 Personal history of other malignant neoplasm of large intestine; I10 Essential (primary) hypertension; E78.2 Mixed hyperlipidemia
CPT/HCPCS: 80053; 82378; 85025; 99213

== ENCOUNTER → 2020-02-29 | Outpatient (CLI) | payer MEDICARE, OTHER ==
[~2020-02-29] MED LIST changes: +MULT-567 PO; -MULT1TAB69 PO
[2020-02-29 13:01] LABS: BASOPHILS # (AUTO) 0.1 10^3/uL (0.0-0.1); BASOPHILS % (AUTO) 1 % (0-10); EOSINOPHILS # (AUTO) 0.1 10^3/uL (0.0-0.3); EOSINOPHILS % (AUTO) 3 % (0-10); HEMATOCRIT 48 % (40-54); HEMOGLOBIN 16.8 G/DL (13.3-17.7); LYMPHOCYTES # (AUTO) 1.5 X 10^3 (1.0-4.0); LYMPHOCYTES % (AUTO) 30 % (12-44); MEAN CORPUSCULAR HEMOGLOBIN 31 PG (25-34); MEAN CORPUSCULAR HGB CONC 35 G/DL (32-36); MEAN CORPUSCULAR VOLUME 87 FL (80-99); MEAN PLATELET VOLUME 10.1 FL (7.4-10.4); MONOCYTES # (AUTO) 0.5 X 10^3 (0.0-1.0); MONOCYTES % (AUTO) 9 % (0-12); NEUTROPHILS # (AUTO) 2.9 X 10^3 (1.8-7.8); NEUTROPHILS % (AUTO) 56 % (42-75); PLATELET COUNT 189 10^3/uL (130-400); RED CELL DISTRIBUTION WIDTH 13.8 % (10.0-14.5); WHITE BLOOD COUNT 5.1 10^3/uL (4.3-11.0)
[2020-02-29 13:25] LABS: ALANINE AMINOTRANSFERASE 46 U/L (0-55); ALBUMIN 4.3 GM/DL (3.2-4.5); ALKALINE PHOSPHATASE 68 U/L (40-136); BILIRUBIN,TOTAL 0.6 MG/DL (0.1-1.0); BUN/CREATININE RATIO 17; CARBON DIOXIDE 20 MMOL/L (21-32); CHLORIDE 113 MMOL/L (98-107); CREATININE SERUM 0.93 MG/DL (0.60-1.30); GFR ESTIMATED > 60; GLUCOSE 93 MG/DL (70-105); POTASSIUM 3.6 MMOL/L (3.6-5.0); SODIUM 143 MMOL/L (135-145); TOTAL PROTEIN 6.8 GM/DL (6.4-8.2)
== END ==
LOC: ONC 12:52
PROVIDERS: ATTEND Internal Medicine Hematology & Oncology
DX: C18.1 Malignant neoplasm of appendix (principal); D12.6 Benign neoplasm of colon, unspecified; I81 Portal vein thrombosis; K55.059 Acute (reversible) ischemia of intestine, part and extent unspecified; Z85.038 Personal history of other malignant neoplasm of large intestine; Z90.49 Acquired absence of other specified parts of digestive tract; Z98.890 Other specified postprocedural states; Z79.899 Other long term (current) drug therapy
CPT/HCPCS: 80053; 82378; 85025; 99213

== ENCOUNTER → 2020-09-05 | Outpatient (CLI) | payer MEDICARE, OTHER ==
[~2020-09-05] MED LIST changes: -PANT40TA3 PO; +PANT40TA52 PO
[2020-09-05 13:05] LABS: BASOPHILS # (AUTO) 0.1 10^3/uL (0.0-0.1); BASOPHILS % (AUTO) 1 % (0-10); EOSINOPHILS # (AUTO) 0.1 10^3/uL (0.0-0.3); EOSINOPHILS % (AUTO) 2 % (0-10); HEMATOCRIT 50 % (40-54); HEMOGLOBIN 17.2 g/dL (13.3-17.7); LYMPHOCYTES # (AUTO) 1.6 10^3/uL (1.0-4.0); LYMPHOCYTES % (AUTO) 31 % (12-44); MEAN CORPUSCULAR HEMOGLOBIN 30 pg (25-34); MEAN CORPUSCULAR HGB CONC 34 g/dL (32-36); MEAN CORPUSCULAR VOLUME 88 fL (80-99); MONOCYTES # (AUTO) 0.4 10^3/uL (0.0-1.0); MONOCYTES % (AUTO) 7 % (0-12); NEUTROPHILS % (AUTO) 58 % (42-75); PLATELET COUNT 188 10^3/uL (130-400); WHITE BLOOD COUNT 5.1 10^3/uL (4.3-11.0)
[2020-09-05 13:27] LABS: ALANINE AMINOTRANSFERASE 42 U/L (0-55); ALBUMIN 4.2 GM/DL (3.2-4.5); ALKALINE PHOSPHATASE 67 U/L (40-136); BILIRUBIN,TOTAL 0.5 MG/DL (0.1-1.0); BUN/CREATININE RATIO 15; CALCIUM 8.7 MG/DL (8.5-10.1); CARBON DIOXIDE 22 MMOL/L (21-32); CHLORIDE 109 MMOL/L (98-107); CREATININE SERUM 0.88 MG/DL (0.60-1.30); GFR ESTIMATED > 60; GLUCOSE 92 MG/DL (70-105); POTASSIUM 3.6 MMOL/L (3.6-5.0); SODIUM 142 MMOL/L (135-145); TOTAL PROTEIN 7.2 GM/DL (6.4-8.2)
== END ==
LOC: ONC 12:48
PROVIDERS: ATTEND Internal Medicine Hematology & Oncology
DX: I10 Essential (primary) hypertension (principal); E78.2 Mixed hyperlipidemia; E66.9 Obesity, unspecified; I65.29 Occlusion and stenosis of unspecified carotid artery; I45.10 Unspecified right bundle-branch block; I44.4 Left anterior fascicular block; Z86.718 Personal history of other venous thrombosis and embolism; Z85.038 Personal history of other malignant neoplasm of large intestine; Z90.49 Acquired absence of other specified parts of digestive tract
CPT/HCPCS: 80053; 82378; 85025; G0463; 99213

== ENCOUNTER → 2020-09-07 | Outpatient (CLI) | payer MEDICARE, OTHER | LOC: CARD 11:41 | PROVIDERS: ATTEND Internal Medicine Cardiovascular Disease | DX: I10 Essential (primary) hypertension (principal) | CPT/HCPCS: 93306 ==

== ENCOUNTER 2021-03-13 08:55 | Outpatient (RCR) | payer MEDICARE, OTHER ==
[2021-03-13 09:05] LABS: BASOPHILS # (AUTO) 0.1 10^3/uL (0.0-0.1); BASOPHILS % (AUTO) 1 % (0-10); EOSINOPHILS # (AUTO) 0.2 10^3/uL (0.0-0.3); EOSINOPHILS % (AUTO) 4 % (0-10); HEMATOCRIT 47 % (40-54); HEMOGLOBIN 15.7 g/dL (13.3-17.7); LYMPHOCYTES # (AUTO) 1.9 10^3/uL (1.0-4.0); LYMPHOCYTES % (AUTO) 35 % (12-44); MEAN CORPUSCULAR HEMOGLOBIN 29 pg (25-34); MEAN CORPUSCULAR HGB CONC 34 g/dL (32-36); MEAN CORPUSCULAR VOLUME 86 fL (80-99); MONOCYTES # (AUTO) 0.4 10^3/uL (0.0-1.0); MONOCYTES % (AUTO) 7 % (0-12); NEUTROPHILS # (AUTO) 2.8 10^3/uL (1.8-7.8); NEUTROPHILS % (AUTO) 53 % (42-75); PLATELET COUNT 215 10^3/uL (130-400); WHITE BLOOD COUNT 5.4 10^3/uL (4.3-11.0)
[2021-03-13 09:25] LABS: ALBUMIN 4.2 GM/DL (3.2-4.5); BILIRUBIN,TOTAL 0.7 MG/DL (0.1-1.0); CALCIUM 8.7 MG/DL (8.5-10.1); CREATININE SERUM 0.87 MG/DL (0.60-1.30); POTASSIUM 3.5 MMOL/L (3.6-5.0); TOTAL PROTEIN 7.2 GM/DL (6.4-8.2)
== END 2021-06-11 | disposition home or self-care (01) ==
LOC: ONC 08:55
PROVIDERS: ATTEND Internal Medicine Hematology & Oncology
DX: C18.1 Malignant neoplasm of appendix (principal); I81 Portal vein thrombosis; I82.890 Acute embolism and thrombosis of other specified veins; I10 Essential (primary) hypertension; E78.2 Mixed hyperlipidemia; D63.0 Anemia in neoplastic disease; Z90.49 Acquired absence of other specified parts of digestive tract; Z85.038 Personal history of other malignant neoplasm of large intestine; Z98.890 Other specified postprocedural states; Z92.21 Personal history of antineoplastic chemotherapy; Z79.01 Long term (current) use of anticoagulants
CPT/HCPCS: 80053; 82378; 85025; G0463; 99213

== ENCOUNTER 2021-07-03 09:21 | Outpatient (CLI) | payer MEDICARE, OTHER ==
[~2021-07-03] VITALS: Ht 180.3 cm; Wt 101.0 kg
[2021-07-03] MEDS ORDERED: ASPI-999 PO (09:41)
[2021-07-03] MEDS ORDERED: ATOR10TA66 PO (09:41)
[2021-07-03] MEDS ORDERED: MTP25TSR PO (09:41)
[2021-07-03] MEDS ORDERED: AMLO-251 PO (09:41)
[2021-07-03] MEDS ORDERED: TURM500C7 PO (09:41)
== END 2021-07-03 09:42 | disposition home or self-care (01) ==
LOC: PREOP 09:21
PROVIDERS: ATTEND Surgery
DX: Z01.818 Encounter for other preprocedural examination (principal); Z12.11 Encounter for screening for malignant neoplasm of colon; D36.9 Benign neoplasm, unspecified site

== ENCOUNTER 2021-07-04 12:18 | Day surgery (SDC) | payer MEDICARE, OTHER ==
[2021-07-04] VITALS (11 sets, daily range): BP systolic 87–134; BP diastolic 49–87
[~2021-07-04] VITALS: Ht 180.3 cm; Wt 101.0 kg
[~2021-07-04 12:18] MED LIST changes: +AMLO-251 PO; +ASPI-999 PO; +ATOR10TA66 PO; +MTP25TSR PO; +TURM500C7 PO
--- NOTE | 2021-07-04 12:26 | Progress Note-Pre Operative ---
Pre-Operative Progress Note H&P Reviewed The H&P was reviewed, patient examined and no changes noted. Date Seen by Provider: Jul 04, 2021 Time Seen by Provider: 12:20 Date H&P Reviewed: Jul 04, 2021 Time H&P Reviewed: 12:20 Pre-Operative Diagnosis: hx colon ca ADEN STONE MD Jul 04, 2021 12:26
--- NOTE | 2021-07-04 12:26 | Conscious Sedation/ASA ---
Conscious Sedation Pre-Proced Time 11:20 ASA Score 2 For ASA 3 and 4: Consider anesthesia and medical clearance. Also, for patients with a history of failed moderate sedation consider anesthesia. Airway Lungs Heart ASA score ASA 1: a normal healthy patient ASA 2: a patient with a mild systemic disease (mid diabetes, controlled hypertension, obesity ASA 3: a patient with a severe systemic disease that limits activity (angina, COPD, prior Myocardial infarction) ASA 4: a patient with an incapacitating disease that is a constant threat to life (CHF, renal failure) ASA 5: a moribund patient not expected to survive 24 hrs. (ruptured aneurysm) ASA 6: a declared brain- patient whose organs are being harvested. For emergent operations, add the letter E after the classification Mallampati Classification Grade 2 Sedation Plan Analgesia, Amnesia, Plan communicated to team members, Discussed options with patient/fam, Discussed risks with patient/fam The patient is an appropriate candidate to undergo the planned procedure, sedation, and anesthesia. The patient immediately re-assessed prior to indication. ADEN STONE MD Jul 04, 2021 12:26
--- NOTE | 2021-07-04 12:27 | Discharge Inst-Surgical ---
D/C Lap Instructions-BERTHA Follow Up Activity as tolerated High Fiber Diet 25g or more per day Avoid Alcohol, Caffeine, Spicy [place] and Acid foods. Drink 64 fluid oz or more of fluids per day. Symptoms to Report: Fever over 101 degree F, Nausea/Vomiting If any problems/questions: Contact your physician or go to Emergency Room ADEN STONE MD Jul 04, 2021 12:27
[2021-07-04] MEDS ORDERED: NS IV 500 ML 500 ML ONE (12:28)
[2021-07-04] MEDS ORDERED: MIDAZOLAM 5 MG/5 ML (VERSED) VIAL IV ONE (12:30)
[2021-07-04] MEDS ORDERED: LIDOCAINE JELLY 2% 6 ML SYRINGE MM PRN (12:30)
[2021-07-04] MEDS ORDERED: fentaNYL INJ 100 MCG/2 ML AMP IVP ONE (12:30)
[2021-07-04] MEDS ORDERED: ONDANSETRON 4 MG/2 ML (SDV) Z0FRAN IVP PRN (12:30)
[2021-07-04] MEDS ORDERED: ONDANSETRON 4 MG (ZOFRAN) ORAL DISSOLVE TAB PO PRN (12:30)
[2021-07-04] MEDS: NS IV 500 ML 500 ML IV PRN ×2 (12:53→16:05)
[2021-07-04] MEDS ORDERED: MIDAZOLAM 5 MG/5 ML (VERSED) VIAL ONE (16:06)
[2021-07-04] MEDS ORDERED: fentaNYL INJ 100 MCG/2 ML AMP ONE (16:07)
--- NOTE | 2021-07-04 16:52 | Progress Note-Post Operative ---
Post-Operative Progess Note Surgeon (s)/Assistant Clinical Director (s) Surgeon ADEN STONE MD Assistant Clinical Director: none Pre-Operative Diagnosis hx colon ca Post-Operative Diagnosis chronic stage 2 ext and int hemorrhoids, pedunculated ascending colon polyp, Procedure & Operative Findings Date of Procedure 07/04/21 Procedure Performed/Findings colonoscopy with snare polypectomy. Anesthesia Type cs Estimated Blood Loss Estimated blood loss (mL): minimal Specimens/Packing Specimens Removed asc clon polyp ADEN STONE MD Jul 04, 2021 16:52
--- NOTE | 2021-07-04 21:21 | OPERATIVE REPORT ---
DATE OF SERVICE: 07/04/2021 ATTENDING PRIMARY CARE PHYSICIAN: [facility]. PREOPERATIVE DIAGNOSIS: Personal history of colon cancer. POSTOPERATIVE DIAGNOSES: Chronic stage II external and internal hemorrhoids, pedunculated polyp of the ascending colon, approximately 3 mm in size. PROCEDURE: Colonoscopy with snare polypectomy. SURGEON: Aden Stone MD. ANESTHESIA: Conscious sedation. ESTIMATED BLOOD LOSS: Minimal. FINDINGS: Chronic stage II external and internal hemorrhoids, pedunculated polyp of the ascending colon, approximately 3 mm in size. DISPOSITION: The patient tolerated the procedure well. INDICATIONS: The patient is a 66-year-old male known to us. He initially presented to the Emergency Department with a 4-day history of abdominal pain 12/2015. A CT scan was performed, which did show chronic inflammatory changes of the appendix consistent with a chronic appendicitis. There was also an adjacent cecal mass, which was worrisome for neoplasm and he underwent exploratory laparotomy with segmental bowel resection on 04/22/2016. The pathology did come back as adenocarcinoma with acute appendicitis. He is originally from [facility] and also has a history of left sided colon cancer and did undergo what sounds to be a left hemicolectomy in 1999. He moved to [place] around 2005. We had done EGD and colonoscopy on him in 05/2016 where he was found to have small polyps of the transverse and descending colon, which were benign and he had another followup colonoscopy in 06/2017 where two descending colonic polyps were identified and found to be tubular adenomas as well as a hyperplastic polyp. He is in need of a followup colonoscopy. DESCRIPTION OF PROCEDURE: The patient was brought to the endoscopy suite, laid in the left lateral decubitus position. After adequate IV pain and sedative medications and conscious sedation anesthesia, digital rectal examination was performed. Mild chronic stage II external and internal hemorrhoids were identified, which were not actively edematous nor inflamed and no bleeding. Normal sphincter tone was felt and there were no palpable masses. Prostate gland was palpable and appeared to be normal. The endoscope was then intubated to the anus and rectum gently insufflated. The endoscope was then advanced through the valves of Jiang of the rectum with no polyps or any neoplasms identified. We then proceeded through the sigmoid colon where no diverticulosis identified. The endoscope was then advanced through the remainder of the descending and transverse colon. At the ascending colon, a small pedunculated polyp approximately 3 mm in size was identified. This was excised at the stalk using a snare and electrocautery with visualization of good hemostasis. This was retrieved by a [place]. The endoscope was then advanced to the cecum, which was normal. The endoscope was then slowly withdrawn while taking a second look and suctioning of residual air with no additional findings. The patient tolerated the procedure well. We will recommend medical management with high fiber diet with incorporation with a fiber supplement, which should equal or exceed 30 grams daily as well as significant amounts of water to promote soft stools on a daily basis. If he is asymptomatic, he will need a followup. We will recommend a followup colonoscopy in approximately 5 years. Job ID: [id number] DocumentID: [id number] Dictated Date: 07/04/2021 16:41:01 Compliance Administrator Date: 07/04/2021 21:20:37 Dictated By: ADEN STONE MD
== END 2021-07-04 17:20 | disposition home or self-care (01) ==
LOC: ENDO 12:18
PROVIDERS: ATTEND Surgery
DX: Z12.11 Encounter for screening for malignant neoplasm of colon (principal); D12.2 Benign neoplasm of ascending colon; K64.1 Second degree hemorrhoids; I10 Essential (primary) hypertension; K27.9 Peptic ulcer, site unspecified, unspecified as acute or chronic, without hemorrhage or perforation; N40.0 Benign prostatic hyperplasia without lower urinary tract symptoms; M19.90 Unspecified osteoarthritis, unspecified site; E78.00 Pure hypercholesterolemia, unspecified; Z85.038 Personal history of other malignant neoplasm of large intestine; Z98.0 Intestinal bypass and anastomosis status; Z90.49 Acquired absence of other specified parts of digestive tract; Z79.82 Long term (current) use of aspirin; Z79.899 Other long term (current) drug therapy
CPT/HCPCS: 88305

== ENCOUNTER 2022-01-02 05:29 | Outpatient (CLI) | payer MEDICARE, OTHER ==
[~2022-01-02] VITALS: Ht 180.3 cm; Wt 99.8 kg
== END 2022-01-07 15:07 ==
LOC: PREOP 05:29
PROVIDERS: ATTEND Surgery
DX: Z01.818 Encounter for other preprocedural examination (principal); K63.5 Polyp of colon; Q89.8 Other specified congenital malformations

== ENCOUNTER 2022-01-09 09:33 | Day surgery (SDC) | payer MEDICARE, OTHER ==
[2022-01-09] VITALS (7 sets, daily range): BP systolic 81–114; BP diastolic 51–74
[~2022-01-09] VITALS: Ht 180 cm; Wt 99.8 kg
[2022-01-09] MEDS ORDERED: LACTATED RINGERS 1,000 ML IV ONE (09:39)
[2022-01-09] MEDS ORDERED: LACTATED RINGERS 1,000 ML IV STA (09:39)
[2022-01-09] MEDS ORDERED: LIDOCAINE JELLY 2% 6 ML SYRINGE MM PRN (09:45)
--- NOTE | 2022-01-09 11:17 | Progress Note-Pre Operative ---
Pre-Operative Progress Note H&P Reviewed The H&P was reviewed, patient examined and no changes noted. Date Seen by Provider: January 09, 2022 Time Seen by Provider: 10:30 Date H&P Reviewed: January 09, 2022 Time H&P Reviewed: 10:30 Pre-Operative Diagnosis: hx colonic polyp with dysplasia ADEN STONE MD January 09, 2022 11:17
--- NOTE | 2022-01-09 11:18 | Discharge Inst-Surgical ---
D/C Lap Instructions-BERTHA Follow Up Activity as tolerated High Fiber Diet 25g or more per day Avoid Alcohol, Caffeine, Spicy [employer] and Acid foods. Drink 64 fluid oz or more of fluids per day. Symptoms to Report: Fever over 101 degree F, Nausea/Vomiting If any problems/questions: Contact your physician or go to Emergency Room ADEN STONE MD January 09, 2022 11:18
[2022-01-09] MEDS ORDERED: PROPOFOL INJECTION 50 ML IV ONE (11:19)
[2022-01-09] MEDS ORDERED: ONDANSETRON 4 MG (ZOFRAN) ORAL DISSOLVE TAB PO PRN (11:30)
[2022-01-09] MEDS ORDERED: ONDANSETRON 4 MG/2 ML (SDV) Z0FRAN IVP PRN (11:30)
--- NOTE | 2022-01-09 12:14 | Anesthesia-General Post-Op ---
MAC Patient Condition Mental Status/LOC: Same as Preop Cardiovascular: Satisfactory Nausea/Vomiting: Absent Respiratory: Satisfactory Pain: Controlled Complications: Absent Post Op Complications Complications None Follow Up Care/Instructions Patient Instructions None needed. Anesthesiology Discharge Order Discharge Order Patient is doing well, no complaints, stable vital signs, no apparent adverse anesthesia problems. No complications reported per nursing. MAXIMILIANO GAYLE CRNA January 09, 2022 12:14
--- NOTE | 2022-01-09 12:29 | Progress Note-Post Operative ---
Post-Operative Progess Note Surgeon (s)/Newspaper Photojournalist (s) Surgeon ADEN STONE MD Newspaper Photojournalist: none Pre-Operative Diagnosis hx colonic polyp with dysplasia Post-Operative Diagnosis chronic stage 2 ext and int hemorrhoids, prox and dist desc colon polyp, distal, mid, proximal ascending colon polyps. Procedure & Operative Findings Date of Procedure 01/09/22 Procedure Performed/Findings colonoscopy with forcep and cautery polypectomy x4, snare polypectomy x1. Anesthesia Type minimal Estimated Blood Loss Estimated blood loss (mL): minimal Specimens/Packing Specimens Removed prox and dist desc colon polyp, distal, mid, proximal ascending colon polyps. ADEN STONE MD January 09, 2022 12:29
--- NOTE | 2022-01-09 21:53 | OPERATIVE REPORT ---
DATE OF SERVICE: 01/09/2022 PRIMARY STEM CRUSHER: [place], [place]. 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 POSTOPERATIVE DIAGNOSES: Mild chronic stage II external and internal hemorrhoids, small polyp of the distal descending and proximal descending colon, small polyp of the distal ascending colon, a pedunculated polyp, which was larger, approximately 5 mm in size of the mid ascending colon, small proximal ascending colonic polyp. PROCEDURES: Colonoscopy with forceps polypectomy x4 and snare polypectomy x1. SURGEON: Aden Stone MD ANESTHESIA: Monitored anesthesia care. ESTIMATED BLOOD LOSS: Minimal. FINDINGS: Mild chronic stage II external and internal hemorrhoids, small polyp of the distal descending and proximal descending colon, small polyp of the distal ascending colon, a pedunculated polyp, which was larger, approximately 5 mm in size of the mid ascending colon, small proximal ascending colonic polyp. DISPOSITION: The patient tolerated the procedure well. INDICATIONS: The patient is a 67-year-old male known to us. He initially presented to the Emergency Department on 01/04/2016 for a 4-day history of pain in the right lower abdominal quadrant. A CT scan was performed, which did show some chronic inflammatory changes of the appendix and there was also an adjacent cecal mass, which was worrisome for neoplasm. He underwent an exploratory laparotomy, segmental bowel resection as well as the terminal ileum on 04/22/2016. The pathology came back as an adenocarcinoma with an acute appendicitis. Since that time, he has had multiple colonoscopies and he has been found to have multiple polyps, which have come back as either tubular adenomas or hyperplastic polyps. On his last colonoscopy on 06/2021, a pedunculated polyp of the ascending colon was identified and this was excised and found to be consistent with a tubular adenoma with high-grade dysplasia. With his history of 2 metachronous colon associated cancers as well as history of multiple polyps and a polyp of the ascending colon with high-grade dysplasia, it was imperative to proceed with a followup colonoscopy in 6 months. DESCRIPTION OF PROCEDURE: The patient was brought to the operating room, laid supine on the table. After adequate IV pain and sedative medications and monitored anesthesia care, a digital rectal examination was performed. Mild chronic stage II external and internal hemorrhoids were identified, which were not actively edematous nor inflamed and no bleeding. Normal sphincter tone was felt and there were no palpable masses. Prostate gland was palpable and appeared normal. The endoscope was then intubated into the anus and rectum gently insufflated. The endoscope was then advanced through the valves of Jiang of the rectum with no polyps or any neoplasms identified. At the distal descending colon, a small polyp approximately 2 mm in size was identified. This was biopsied and destroyed using forceps and electrocautery with visualization of good hemostasis. Another similar polyp of the proximal descending colon was identified and removed in a similar manner. The endoscope was then advanced through the distal ascending colon where a polyp again approximately 2 to 3 mm in size was identified and this was biopsied and destroyed with forceps and electrocautery. There was a mid ascending pedunculated polyp, which was large, approximately 5 mm in size and this was snared at its base using a cautery with visualization of good hemostasis. There was also a smaller proximal ascending colon, which was biopsied and destroyed with forceps and electrocautery. The ileocolonic anastomosis appeared normal. The endoscope was then slowly withdrawn while taking a second look and suctioning of residual air with no additional findings. The patient tolerated the procedure well. We will await the biopsy results and if dysplasia was once again identified, we will go over the potential options for him, which would include close surveillance versus a segmental resection of that portion of bowel. Due to his history of metachronous colon cancers, he will likely always need a colonoscopy always within 5 years. Job ID: [id number] DocumentID: [id number] Dictated Date: 01/09/2022 12:22:37 Property Insurance Inspector Date: 01/09/2022 21:52:51 Dictated By: ADEN STONE MD
== END 2022-01-09 13:26 | disposition home or self-care (01) ==
LOC: ENDO 09:33
PROVIDERS: ATTEND Surgery
DX: Z12.11 Encounter for screening for malignant neoplasm of colon (principal); K63.5 Polyp of colon; D12.4 Benign neoplasm of descending colon; D12.2 Benign neoplasm of ascending colon; K64.1 Second degree hemorrhoids; K64.4 Residual hemorrhoidal skin tags; Z85.038 Personal history of other malignant neoplasm of large intestine; Z98.0 Intestinal bypass and anastomosis status
CPT/HCPCS: 88305

== ENCOUNTER 2023-03-18 15:28 | Inpatient (IN) | payer MEDICARE, OTHER ==
[~2023-03-18] VITALS: Ht 180 cm; Wt 102.9 kg
[~2023-03-18 15:28] MED LIST changes: +OLME-40 PO; -OLME1TAB24 PO
[2023-03-18] MEDS ORDERED: NS IV 1000 ML 1,000 ML IV STA ×2 (15:37→16:10)
--- NOTE | 2023-03-18 15:41 | ED Cardiac General ---
History of Present Illness General Chief Complaint: Cardiac/General Problems Stated Complaint: HIGH HEART RATE Nursing Triage Note: PT STATES HE WAS SENT FROM DR. HARTMANN'S OFFICE WITH CC OF TACHYCARDIA, STATES FEELING THIS WAY FOR ABOUT A WEEK AND DIZZY SPELLS, RATE IN THE 140'S, NO HX OF THIS Source: patient Exam Limitations: no limitations (SUNNI ARGUETA) History of Present Illness Date Seen by Provider: Mar 18, 2023 Time Seen by Provider: 15:38 Initial Comments Patient is a 68-year-old male who presents ED from Dr. Hartmann's office his wellness program coordinator for tachycardia and dizzy spells. Patient states over the past week he has had intermittent dizzy spells specially when bending over. Patient states he has been checking his blood pressure which is blood pressure has been running slightly lower and noted his heart rate to be in the 130s to 140s. Patient was seen today noted abnormal high heart rhythm and was recommended come the ED for further evaluation. Patient denies of any chest pain short of breath, cough, vomiting, diarrhea, fever, chills, leg pain or swelling. Not currently on anticoagulants. No recent travels or surgeries. Consulted with Dr. Hartmann who recommended starting on a Cardizem drip and Lovenox and admission. Denies history of A-fib or a flutter. (SUNNI ARGUETA) Allergies and Home Medications Allergies Coded Allergies: No Known Drug Allergies (Unverified , 06/25/18) Patient Home Medication List Home Medication List Reviewed: Yes (SUNNI ARGUETA) Alfuzosin HCl (Uroxatral) 10 Mg Tab.sr.24h, 10 MG PO DAILY, (Reported) Entered as Reported by: TODD GUAN on 06/10/16 1145 Last Action: Reviewed Amlodipine Besylate (Amlodipine Besylate) 10 Mg Tablet, 10 MG PO DAILY, (Reported) Entered as Reported by: LUCIANO ROBLERO on 07/03/21940 Last Action: Reviewed Aspirin (Aspirin) 81 Mg Tab.chew, 81 MG PO DAILY, (Reported) Entered as Reported by: LUCIANO ROBLERO on 07/03/21940 Last Action: Reviewed Atorvastatin Calcium (Atorvastatin Calcium) 10 Mg Tablet, 10 MG PO HS, (Reported) Entered as Reported by: LUCIANO ROBLERO on 07/03/21940 Last Action: Reviewed Cyanocobalamin (Vitamin B-12) (Vitamin B-12) 1,000 Mcg Tablet, 1,000 MCG PO HS, (Reported) Entered as Reported by: EZEQUIEL DAWN on 01/04/16 1028 Last Action: Reviewed Losartan Potassium (Cozaar) 25 Mg Tablet, 100 MG PO DAILY, (Reported) Entered as Reported by: TODD UGAN on 06/10/16 1145 Last Action: Reviewed Metoprolol Succinate (Metoprolol Succinate) 25 Mg Tab.er.24h, 25 MG PO DAILY, (Reported) Entered as Reported by: LUCIANO ROBLERO on 07/03/21940 Last Action: Reviewed Multivitamin (Multivitamins) 1 Each Tablet, 1 EACH PO DAILY, (Reported) Entered as Reported by: TODD GUAN on 06/13/17 1139 Last Action: Reviewed [place] 3 Polyunsat Fatty Acids (Fish Oil 1,000 mg Capsule) 1,000 Mg Cap, 1,000 MG PO BID, (Reported) Entered as Reported by: EZEQUIEL DAWN on 01/04/16 1028 Last Action: Reviewed Pantoprazole Sodium (Pantoprazole Sodium) 40 Mg Tablet.dr, 40 MG PO DAILY, (Reported) Entered as Reported by: EZEQUIEL DAWN on 01/04/16 1023 Last Action: Reviewed Turmeric/Turmeric Root Extract (Turmeric 450-50 mg Capsule) 1 Each Capsule, 1 EACH PO DAILY, (Reported) Entered as Reported by: LUCIANO ROBLERO on 07/03/21940 Last Action: Reviewed Review of Systems Review of Systems Constitutional: No chills, No diaphoresis EENTM: No Double Vision, No Eye Pain, No Mouth Pain, No Mouth Swelling Respiratory: Denies Cough, Denies Shortness of Air Cardiovascular: Denies Chest Pain; Irregular Heart Rate Gastrointestinal: Denies Abdominal Pain, Denies Constipated, Denies Diarrhea, Denies Nausea, Denies Vomiting Genitourinary: Denies Burning, Denies Discharge Musculoskeletal: No back pain, No gout Skin: No change in color (SUNNI ARGUETA) All Other Systems Reviewed Negative Unless Noted: Yes (SUNNI ARGUETA) Past Bhvljxy-Vprgwn-Hxfkcj Hx Immunizations Up To Date First/Initial COVID19 Vaccinat: 09/2020 Second COVID19 Vaccination Misael: 10/2020 Third COVID19 Vaccination Date: NO (SUNNI ARGUETA) Seasonal Allergies Seasonal Allergies: Yes (MILD) (SUNNI ARGUETA) Past Medical History Surgeries: Yes (COLON RESECTION X2, LEFT SHOULDER X2) Bowel Surgery, Orthopedic, Tonsillectomy Respiratory: No Cardiac: Yes (RT BBB) High Cholesterol, Hypertension Neurological: No Reproductive Disorders: No Sexually Transmitted Disease: No HIV/AIDS: No Genitourinary: Yes Benign Prostatic Hyperpl, Prostate Problems Gastrointestinal: Yes ( 2013 BLEEDING ULCER, HX COLON TUMOR ON APPENDIX) Gastrointestinal Bleed, Polyps, Hiatal Hernia, Ulcer Musculoskeletal: Yes (LOW BACK PAIN-) Degenerate Disk Disease, Chronic Back Pain Endocrine: No HEENT: No Loss of Vision: Bilateral Hearing Impairment: Denies Cancer: Yes (COLON RESECTION 1999 WITH CHEMO) Colon What Type of Treatment Did You: Chemotherapy, Surgical Intervention Psychosocial: No Integumentary: No Blood Disorders: No Adverse Reaction/Blood Tranf: No (N/A) (SUNNI ARGUETA) Family Medical History CANCER FH: cancer 19 FATHER FHx: cancer Physical Exam Vital Signs Vital Signs - First Documented 03/18/23 15:31 Temp 37.9 Pulse 135 Resp 20 B/P (MAP) 112/81 (91) Pulse Ox 94 O2 Delivery Room Air (MANUEL TREVIZO MD) Vital Signs Capillary Refill : Less Than 3 Seconds (SUNNI ARGUETA) Height, Weight, BMI Height: 5'11.00" Weight: 207lbs. 7.0oz. 94.407611br; 30.00 BMI Method:Stated General Appearance: No Apparent Distress, WD/WN HEENT: PERRL/EOMI, TMs Normal, Normal ENT Inspection, Pharynx Normal Neck: Full Range of Motion, Normal Inspection, Non Tender, Supple Respiratory: Chest Non Tender, Lungs Clear, Normal Breath Sounds, No Accessory Muscle Use, No Respiratory Distress Cardiovascular: No Gallop, No JVD, No Murmur, Tachycardia Gastrointestinal: Normal Bowel Sounds, No Organomegaly, No Pulsatile Mass, Non Tender Extremity: Normal Capillary Refill, Normal Inspection, Normal Range of Motion, Non Tender Neurologic/Psychiatric: Alert, Oriented x3, No Motor/Sensory Deficits, Normal Mood/Affect, processing archivist II-XII Norm as Tested Skin: Normal Color, Warm/Dry (SUNNI ARGUETA) Progress/Results/Core Measures Results/Orders Lab Results Laboratory Tests Test 03/18/23 15:35 Range/Units White Blood Count 8.7 4.3-11.0 10^3/uL Red Blood Count 5.29 4.30-5.52 10^6/uL Hemoglobin 15.3 13.3-17.7 g/dL Hematocrit 46 40-54 % Mean Corpuscular Volume 86 80-99 fL Mean Corpuscular Hemoglobin 29 25-34 pg Mean Corpuscular Hemoglobin Concent 34 32-36 g/dL Red Cell Distribution Width 13.1 10.0-14.5 % Platelet Count 236 130-400 10^3/uL Mean Platelet Volume 10.2 9.0-12.2 fL Immature Granulocyte % (Auto) 0 % Neutrophils (%) (Auto) 70 42-75 % Lymphocytes (%) (Auto) 20 12-44 % Monocytes (%) (Auto) 8 0-12 % Eosinophils (%) (Auto) 2 0-10 % Basophils (%) (Auto) 0 0-10 % Neutrophils # (Auto) 6.1 1.8-7.8 X 10^3 Lymphocytes # (Auto) 1.7 1.0-4.0 X 10^3 Monocytes # (Auto) 0.7 0.0-1.0 X 10^3 Eosinophils # (Auto) 0.2 0.0-0.3 10^3/uL Basophils # (Auto) 0.0 0.0-0.1 10^3/uL Immature Granulocyte # (Auto) 0.0 0.0-0.1 10^3/uL Prothrombin Time 13.7 12.2-14.7 SEC INR Comment 1.0 0.8-1.4 Activated Partial Thromboplast Time 32 24-35 SEC D-Dimer < 0.27 0.00-0.49 UG/ML Sodium Level 143 135-145 MMOL/L Potassium Level 3.5 L 3.6-5.0 MMOL/L Chloride Level 112 H 98-107 MMOL/L Carbon Dioxide Level 20 L 21-32 MMOL/L Anion Gap 11 5-14 MMOL/L Blood Urea Nitrogen 16 7-18 MG/DL Creatinine 0.96 0.60-1.30 MG/DL Estimat Glomerular Filtration Rate 86 BUN/Creatinine Ratio 17 Glucose Level 104 70-105 MG/DL Calcium Level 8.6 8.5-10.1 MG/DL Corrected Calcium 8.4 L 8.5-10.1 MG/DL Magnesium Level 1.9 1.6-2.4 MG/DL Total Bilirubin 0.5 0.1-1.0 MG/DL Aspartate Amino Transf (AST/SGOT) 16 5-34 U/L Alanine Aminotransferase (ALT/SGPT) 28 0-55 U/L Alkaline Phosphatase 94 40-136 U/L Myoglobin 42.0 10.0-92.0 NG/ML Troponin I < 0.028 <0.028 NG/ML B-Type Natriuretic Peptide 102.3 H <100.0 PG/ML Total Protein 7.3 6.4-8.2 GM/DL Albumin 4.2 3.2-4.5 GM/DL Thyroid Stimulating Hormone (TSH) 1.47 0.35-4.94 UIU/ML (MANUEL TREVIZO MD) My Orders Orders - MANUEL TREVIZO MD Ekg Tracing (03/18/23 15:31) (MANUEL TREVIZO MD) Vital Signs/I&O 03/18/23 03/18/23 03/18/23 15:31 16:16 16:46 Temp 37.9 Pulse 135 134 133 Resp 20 B/P (MAP) 112/81 (91) 127/86 116/92 Pulse Ox 94 O2 Delivery Room Air 03/19/23 00:00 Intake Total 2000 ml Balance 2000 ml (MANUEL TREVIZO MD) Blood Pressure Mean: 91 Comment Junctional tachycardia, right bundle branch block, and left anterior fascicular block, moderate T wave abnormality, 136 bpm, QRS duration 169 MS, QTc 388 MS (SUNNI ARGUETA) Departure Communication (PCP) Reviewed previous ER visits, H&P, lab testing. Patient presents the ED from Dr. Hartmann's office for further evaluation for tachycardia and dizziness. On arrival currently asymptomatic. Heart rate 137 bpm appears to sinus tach. He is afebrile with stable blood pressure initially. Currently on BP medication. Denies chest pain or shortness of breath. No history of A-fib or a flutter. Before arrival consulted with Dr. Hartmann his wellness program coordinator. Recommended Lovenox 1 mg/kg and started on a Cardizem drip. Cardiac work-up was initiated. EKG showed junctional tachycardia with right bundle branch block. CBC, CMP was grossly unremarkable. Normal troponin. BNP of 100. Normal D-dimer. Normal TSH. Chest x-ray was negative for pneumonia, pneumothorax. No recent URI symptoms. No appreciation of lower leg swelling. Patient started to become sl ightly hypotensive. Patient was started on a liter of fluid. Consulted Dr. Hartmann a second time recommended a bolus 10 mg of Cardizem and started on a Cardizem drip which was initiated here in the ED. Patient heart rate remained in the 120s before admission. Patient was discussed with Dr. [facility] who accepted patient. No evidence suggesting infectious etiology. Patient is not on digoxin. Denies of any recent tick bites. No history of heart valve replacement. No evidence of electrolyte abnormality. (SUNNI ARGUETA) Impression Primary Impression: Tachycardia Disposition: ADMITTED INPATIENT Condition: Stable Admissions Decision to Admit Reason: Admit from ER (General) Decision to Admit/Date: Mar 18, 2023 Time/Decision to Admit Time: 16:47 (SUNNI ARGUETA) Departure-Patient Inst. Referrals: [facility] [place] (PCP/Family) Primary Care Physician ATTENDING PHYSICIAN NOTE: I was physically present as attending physician in the emergency department during the care of this patient, but I was not directly involved in the decision making or delivery of care for this patient. (MANUEL TREVIZO MD) SUNNI ARGUETA Mar 18, 2023 15:41 MANUEL TREVIZO MD Mar 19, 2023 12:04
[2023-03-18 15:42] LABS: BASOPHILS % (AUTO) 0 % (0-10); EOSINOPHILS # (AUTO) 0.2 10^3/uL (0.0-0.3); EOSINOPHILS % (AUTO) 2 % (0-10); HEMATOCRIT 46 % (40-54); HEMOGLOBIN 15.3 g/dL (13.3-17.7); LYMPHOCYTES # (AUTO) 1.7 X 10^3 (1.0-4.0); LYMPHOCYTES % (AUTO) 20 % (12-44); MEAN CORPUSCULAR HEMOGLOBIN 29 pg (25-34); MEAN CORPUSCULAR HGB CONC 34 g/dL (32-36); MEAN CORPUSCULAR VOLUME 86 fL (80-99); MEAN PLATELET VOLUME 10.2 fL (9.0-12.2); MONOCYTES # (AUTO) 0.7 X 10^3 (0.0-1.0); MONOCYTES % (AUTO) 8 % (0-12); NEUTROPHILS # (AUTO) 6.1 X 10^3 (1.8-7.8); NEUTROPHILS % (AUTO) 70 % (42-75); PLATELET COUNT 236 10^3/uL (130-400); WHITE BLOOD COUNT 8.7 10^3/uL (4.3-11.0)
[2023-03-18] MEDS ORDERED: ASPIRIN 81 MG CHEWABLE TABLET PO ONE (15:45)
[2023-03-18 15:48] LABS: ALBUMIN 4.2 GM/DL (3.2-4.5)
[2023-03-18 15:49] LABS: CHLORIDE 112 MMOL/L (98-107); POTASSIUM 3.5 MMOL/L (3.6-5.0); SODIUM 143 MMOL/L (135-145)
[2023-03-18 15:50] LABS: CALCIUM 8.6 MG/DL (8.5-10.1)
[2023-03-18 15:51] LABS: GLUCOSE 104 MG/DL (70-105); PROTHROMBIN TIME PATIENT 13.7 SEC (12.2-14.7); TOTAL PROTEIN 7.3 GM/DL (6.4-8.2)
[2023-03-18 15:52] LABS: CARBON DIOXIDE 20 MMOL/L (21-32)
[2023-03-18 15:53] LABS: BILIRUBIN,TOTAL 0.5 MG/DL (0.1-1.0)
[2023-03-18 15:54] LABS: ALKALINE PHOSPHATASE 94 U/L (40-136)
[2023-03-18] MEDS: dilTIAZem INJ 25 MG/5 ML VIAL IVP ONE ×2 (15:54→16:16)
[2023-03-18 15:55] LABS: CREATININE SERUM 0.96 MG/DL (0.60-1.30); GFR ESTIMATED 86
[2023-03-18 15:56] LABS: BUN/CREATININE RATIO 17
[2023-03-18 15:57] LABS: ALANINE AMINOTRANSFERASE 28 U/L (0-55); MAGNESIUM 1.9 MG/DL (1.6-2.4)
--- NOTE | 2023-03-18 16:03 | Diagnostic Imaging Report ---
INDICATION: Chest pain. FINDINGS: The lungs are clear. There is no failure, effusion, or pneumothorax. IMPRESSION: Clear chest. Dictated by: Dictated on workstation # [id number]
[2023-03-18] MEDS ORDERED: ENOXAPARIN 100 MG/1 ML SYRINGE SC ONE (16:30)
[2023-03-18] MEDS ORDERED: dilTIAZem DRIP PRE-MIX 125 ML IV SCH (16:45)
[2023-03-18] MEDS ORDERED: NS IV 500 ML 500 ML IV PRN (18:00)
[2023-03-18] MEDS: dilTIAZem DRIP PRE-MIX 125 ML IV SCH (18:48)
[2023-03-18] MEDS ORDERED: KCL 20 MEQ TAB (K-DUR) PO ONE (21:00)
[2023-03-18] MEDS ORDERED: DIGOXIN 0.25 MG TABLET PO ONE (21:00)
[2023-03-18] MEDS: meTOprolol 5 MG/5 ML (LOPRESSOR) VIAL IV SCH (21:47)
[2023-03-19] MEDS: meTOprolol 5 MG/5 ML (LOPRESSOR) VIAL IV SCH ×6 (00:52→21:00)
[2023-03-19] MEDS: dilTIAZem DRIP PRE-MIX 125 ML IV SCH ×2 (00:52→09:26)
[2023-03-19 04:33] LABS: BASOPHILS # (AUTO) 0.1 10^3/uL (0.0-0.1); BASOPHILS % (AUTO) 1 % (0-10); EOSINOPHILS # (AUTO) 0.2 10^3/uL (0.0-0.3); EOSINOPHILS % (AUTO) 3 % (0-10); HEMATOCRIT 43 % (40-54); HEMOGLOBIN 14.5 g/dL (13.3-17.7); LYMPHOCYTES # (AUTO) 1.9 10^3/uL (1.0-4.0); LYMPHOCYTES % (AUTO) 22 % (12-44); MEAN CORPUSCULAR HEMOGLOBIN 29 pg (25-34); MEAN CORPUSCULAR HGB CONC 34 g/dL (32-36); MEAN CORPUSCULAR VOLUME 86 fL (80-99); MEAN PLATELET VOLUME 10.7 fL (9.0-12.2); MONOCYTES # (AUTO) 0.7 10^3/uL (0.0-1.0); MONOCYTES % (AUTO) 9 % (0-12); NEUTROPHILS # (AUTO) 5.5 10^3/uL (1.8-7.8); NEUTROPHILS % (AUTO) 66 % (42-75); PLATELET COUNT 223 10^3/uL (130-400); WHITE BLOOD COUNT 8.4 10^3/uL (4.3-11.0)
[2023-03-19 04:53] LABS: POTASSIUM 4.1 MMOL/L (3.6-5.0)
[2023-03-19 04:54] LABS: CALCIUM 8.3 MG/DL (8.5-10.1)
[2023-03-19 04:58] LABS: PHOSPHORUS 2.3 MG/DL (2.3-4.7)
[2023-03-19 04:59] LABS: CREATININE SERUM 0.88 MG/DL (0.60-1.30)
[2023-03-19] MEDS ORDERED: ENOXAPARIN 100 MG/1 ML SYRINGE SC SCH (05:00)
[2023-03-19 05:01] LABS: MAGNESIUM 1.7 MG/DL (1.6-2.4)
[2023-03-19] MEDS: MAGNESIUM 1 GM/100 ML IVPB 100 ML IV SCH ×5 (05:06→09:12)
[2023-03-19] MEDS: KCL 20 MEQ TAB (K-DUR) PO SCH (05:06)
[2023-03-19] MEDS: POTASSIUM CL 10MEQ/50ML IVPB 50 ML IV SCH (05:06)
--- NOTE | 2023-03-19 09:19 | Tele-ICU Consult ---
History of Present Illness History of Present Illness Date Seen by Provider: Mar 19, 2023 Time Seen by Provider: 09:18 Date of Admission History of Present Illness (Tele-ICU Physician , consultation as per request of PCP Service provided via interactive audio and video telecom[employer]licanto E-CARE system to a patient admitted to ICU bed in [facility]. Available chart/ vitals / labs / Images reviewed H&P is from ER notes Patient's information available about PMH, Shx, Fhx allergy reviewed inEMR. ROS as per chart and RN report Now in ICU, hemodynamically stable Video assessment done using teleICU camera, rest of exam as per RN Discussed with RN. Hospital course: (03/18) 68y/o M admitted with symptomatic junctional tachycardia, R BBB & L anterior fascicular block. A/P admitted from cardiology office with symptomatic junctional tachycardia, R BBB & L anterior fascicular block. - cardizem gtt 15 - dig IV x1 . lopressor IV - lovenoix ful;l dose -rate is still>120 , asymptomatic now , no CP , on RA - plan as per cards h/o COLON RESECTION 1999 WITH CHEMO- resolved VTE Prophylaxis: patrice full dose Stress Ulcer Prophylaxis: Plans in collaboration with bedside consultants and IM MDs. Discussed with RN to reach out if any questions or concerns A total of 10 minutes of critical care time was devoted to this patient today, required to treat and/or prevent further deterioration of critical care condition ( as above ) . I am remotely monitoring this patient from another state. I am unable to do the bedside exam, and history/physical and pertinent information is taken from other notes in the computer and bedside staff. . Allergies and Home Medications Allergies Coded Allergies: No Known Drug Allergies (Unverified , 06/25/18) Home Medications Alfuzosin HCl 10 Mg Tab.sr.24h, 10 MG PO DAILY, (Reported) Amlodipine Besylate 10 Mg Tablet, 10 MG PO DAILY, (Reported) Aspirin 81 Mg Tab.chew, 81 MG PO DAILY, (Reported) Atorvastatin Calcium 10 Mg Tablet, 10 MG PO HS, (Reported) Cyanocobalamin (Vitamin B-12) 1,000 Mcg Tablet, 1,000 MCG PO HS, (Reported) Losartan Potassium 25 Mg Tablet, 100 MG PO DAILY, (Reported) Metoprolol Succinate 25 Mg Tab.er.24h, 25 MG PO DAILY, (Reported) Multivitamin 1 Each Tablet, 1 EACH PO DAILY, (Reported) [place] 3 Polyunsat Fatty Acids 1,000 Mg Cap, 1,000 MG PO BID, (Reported) Pantoprazole Sodium 40 Mg Tablet.dr, 40 MG PO DAILY, (Reported) Turmeric/Turmeric Root Extract 1 Each Capsule, 1 EACH PO DAILY, (Reported) Past Medical/Social/Family Hx Patient Social History Tobacco Use?: Yes Smokeless type used: Chew Smokeless Tobacco Frequency: Current Everyday User Use of E-Cig and/or Vaping dev: No Substance use?: Yes Substance type: Caffeine Substance frequency: Daily Alcohol Use?: Yes Alcohol type: Beer Alcohol Frequency: Once in a while Pt stated abuse/neglect: No Immunizations Up To Date Influenza Vaccine Up-to-Date: Yes; Up-to-Date First/Initial COVID19 Vaccinat: 09/2020 Second COVID19 Vaccination Misael: 10/2020 Tetanus Booster (TDap): More Than 5 Years Hepatitis A: No Hepatitis B: No TB Skin Test: None Current Status Advance Directives: No Primary Language: Yi Preferred Spoken Language: Yi Is interpretation needed?: No Sensory deficits: Vision impairment, Hearing impairment Implanted or Applied Medical D: None Review of Systems Constitutional: other Focused Exam Height, Weight, BMI Height: 5'11.00" Weight: 207lbs. 7.0oz. 94.117891vg; 31.45 BMI Method:Stated Exam Exam Patient acknowledged, consented, and participated in this virtual visit which was conducted using real time audio/video Vital Signs Date Time Temp Pulse Resp B/P (MAP) Pulse Ox O2 Delivery O2 Flow Rate FiO2 03/19/23 08:00 130 9 110/85 (93) 90 Room Air 03/19/23 07:00 131 03/19/23 07:00 131 9 104/78 (87) 90 Room Air 03/19/23 06:00 131 19 126/103 (111) 92 Room Air 03/19/23 05:56 93 Nasal Cannula 2.00 03/19/23 05:00 131 18 136/101 (113) 93 Room Air 03/19/23 04:36 36.6 Room Air 03/19/23 04:00 133 122/94 (103) 91 Nasal Cannula 2.00 03/19/23 04:00 93 Room Air 03/19/23 03:00 133 119/82 (94) 94 Nasal Cannula 2.00 03/19/23 02:00 131 20 107/83 (91) 89 Nasal Cannula 2.00 03/19/23 01:00 132 03/19/23 01:00 131 104/84 (91) 93 Nasal Cannula 2.00 03/19/23 00:52 131 129/101 03/19/23 00:11 36.8 03/19/23 00:09 92 Nasal Cannula 2.00 03/19/23 00:00 131 9 110/82 (91) 92 Nasal Cannula 2.00 03/18/23 23:00 131 25 101/82 (88) 88 Nasal Cannula 2.00 03/18/23 22:00 131 21 111/95 (100) 92 Nasal Cannula 2.00 03/18/23 21:52 Nasal Cannula 2.00 03/18/23 21:00 133 25 125/95 (105) 91 Room Air 03/18/23 20:00 90 Room Air 03/18/23 20:00 134 31 111/94 (100) 91 Room Air 03/18/23 20:00 36.8 03/18/23 19:00 131 03/18/23 19:00 130 26 110/86 (94) 90 Room Air 03/18/23 18:48 130 129/101 03/18/23 18:00 130 7 129/101 (110) 90 Room Air 03/18/23 17:34 36.6 130 15 132/101 (111) 91 Room Air 03/18/23 17:30 131 03/18/23 17:27 130 03/18/23 17:17 130 20 121/96 94 Room Air 03/18/23 16:46 133 116/92 03/18/23 16:16 134 127/86 03/18/23 15:31 37.9 135 20 112/81 (91) 94 Room Air I & O 03/19/23 07:00 Intake Total 2675 ml Output Total 750 ml Balance 1925 ml Height & Weight Height: 5'11.00" Weight: 207lbs. 7.0oz. 94.840106va; 31.45 BMI Method:Stated General Appearance: No Apparent Distress, WD/WN HEENT: PERRL/EOMI, TMs Normal, Normal ENT Inspection, Pharynx Normal Neck: Full Range of Motion, Normal Inspection, Non Tender, Supple Respiratory: Chest Non Tender, Lungs Clear, Normal Breath Sounds, No Accessory Muscle Use, No Respiratory Distress Cardiovascular: No Gallop, No JVD, No Murmur, Tachycardia Capillary Refill: Less Than 3 Seconds Extremity: Normal Capillary Refill, Normal Inspection, Normal Range of Motion, Non Tender Neurologic/Psychiatric: Alert, Oriented x3, No Motor/Sensory Deficits, Normal Mood/Affect, creative resource manager II-XII Norm as Tested Skin: Normal Color, Warm/Dry Results Lab Laboratory Tests 03/18/23 15:35 03/19/23 03:55 Assessment/Plan Assessment/Plan 1 HANY VASQUEZ MD Mar 19, 2023 09:19
[2023-03-19] MEDS ORDERED: ADENOSINE INJECTION 6 MG/2 ML VIAL IV ONE (09:34)
--- NOTE | 2023-03-19 10:39 | Consultation-Cardiology ---
HPI-Cardiology Cardiology Consultation Date of Consultation 03/19/23 Date of Admission Time Seen by Provider: 09:18 Indication: Atrial flutter HPI Patient is a 68 y/o male with history of HTN, HLP. Presented to our office yesterday with complaints of tachycardia and intermittent dizziness for the past 7-10days. Denies any chest pain or dyspnea. Was sent to ER and admitted to ICU on Cardizem gtt and Lovenox. Upon interviewing the patient, he is continuing to have intermittent dizziness. Telemetry showing tachycardia with HR in the 130s, likely underlying atrial flutter Home Medications & Allergies Allergies: Coded Allergies: No Known Drug Allergies (Unverified , 06/25/18) Home Medication List Reviewed: Yes TOM-Czzuol-Tvorpy Hx Patient Social History Marital Status: 2nd Hand Smoke Exposure: Yes Recent Hopitalizations: No Alcohol Use?: Yes Substance type: Caffeine Immunizations Up To Date Date of Influenza Vaccine: May 25, 2021 Past Medical History HTN, HLP Family Medical History Family History: CANCER FH: cancer 19 FATHER FHx: cancer Review of Systems-General Review of Systems Constitutional: see HPI, other EENTM: see HPI; No blurred vision, No double vision Respiratory: see HPI; No cough, No dyspnea on exertion, No short of breath Cardiovascular: see HPI; No chest pain, No Hx of Intervention; palpitations; No syncope Genitourinary: No dysuria, No frequency, No hematuria Musculoskeletal: No back pain, No gout Skin: No change in color All Other Systems Reviewed Negative Unless Noted: Yes Reviewed Test Results Reviewed Test Results Lab Laboratory Tests 03/18/23 15:35: White Blood Count 8.7, Red Blood Count 5.29, Hemoglobin 15.3, Hematocrit 46, Mean Corpuscular Volume 86, Mean Corpuscular Hemoglobin 29, Mean Corpuscular Hemoglobin Concent 34, Red Cell Distribution Width 13.1, Platelet Count 236, Mean Platelet Volume 10.2, Immature Granulocyte % (Auto) 0, Neutrophils (%) (Auto) 70, Lymphocytes (%) (Auto) 20, Monocytes (%) (Auto) 8, Eosinophils (%) (Auto) 2, Basophils (%) (Auto) 0, Neutrophils # (Auto) 6.1, Lymphocytes # (Auto) 1.7, Monocytes # (Auto) 0.7, Eosinophils # (Auto) 0.2, Basophils # (Auto) 0.0, Immature Granulocyte # (Auto) 0.0, Prothrombin Time 13.7, INR Comment 1.0, Activated Partial Thromboplast Time 32, D-Dimer < 0.27, Sodium Level 143, Potassium Level 3.5L, Chloride Level 112H, Carbon Dioxide Level 20L, Anion Gap 11, Blood Urea Nitrogen 16, Creatinine 0.96, Estimat Glomerular Filtration Rate 86, BUN/Creatinine Ratio 17, Glucose Level 104, Calcium Level 8.6, Corrected Calcium 8.4L, Magnesium Level 1.9, Total Bilirubin 0.5, Aspartate Amino Transf (AST/SGOT) 16, Alanine Aminotransferase (ALT/SGPT) 28, Alkaline Phosphatase 94, Myoglobin 42.0, Troponin I < 0.028, B-Type Natriuretic Peptide 102.3H, Total Protein 7.3, Albumin 4.2, Thyroid Stimulating Hormone (TSH) 1.47 03/19/23 03:55: White Blood Count 8.4, Red Blood Count 4.99, Hemoglobin 14.5, Hematocrit 43, Mean Corpuscular Volume 86, Mean Corpuscular Hemoglobin 29, Mean Corpuscular Hemoglobin Concent 34, Red Cell Distribution Width 13.2, Platelet Count 223, Mean Platelet Volume 10.7, Immature Granulocyte % (Auto) 1, Neutrophils (%) (Auto) 66, Lymphocytes (%) (Auto) 22, Monocytes (%) (Auto) 9, Eosinophils (%) (Auto) 3, Basophils (%) (Auto) 1, Neutrophils # (Auto) 5.5, Lymphocytes # (Auto) 1.9, Monocytes # (Auto) 0.7, Eosinophils # (Auto) 0.2, Basophils # (Auto) 0.1, Immature Granulocyte # (Auto) 0.0, Sodium Level 140, Potassium Level 4.1, Chloride Level 112H, Carbon Dioxide Level 20L, Anion Gap 8, Blood Urea Nitrogen 14, Creatinine 0.88, Estimat Glomerular Filtration Rate 94, BUN/Creatinine Ratio 16, Glucose Level 103, Calcium Level 8.3L, Magnesium Level 1.7, Phosphorus Level 2.3, Triglycerides Level 67, Cholesterol Level 100, LDL Cholesterol Direct 68, VLDL Cholesterol 13, HDL Cholesterol 28L ECG Impression ECG Initial ECG Rhythm: A Fib/Flutter Physical Exam Physical Exam Vital Signs Vital Signs - First Documented 03/18/23 03/18/23 15:31 21:52 Temp 37.9 Pulse 135 Resp 20 B/P (MAP) 112/81 (91) Pulse Ox 94 O2 Delivery Room Air O2 Flow Rate 2.00 Capillary Refill : Less Than 3 Seconds Height, Weight, BMI Height: 5'11.00" Weight: 207lbs. 7.0oz. [id number]; 31.45 BMI Method:Stated General Appearance: No Apparent Distress, WD/WN HEENT: PERRL/EOMI, TMs Normal, Normal ENT Inspection, Pharynx Normal Neck: Full Range of Motion, Normal Inspection, Non Tender, Supple Respiratory: Chest Non Tender, Lungs Clear, Normal Breath Sounds, No Accessory Muscle Use, No Respiratory Distress Cardiovascular: No Gallop, No JVD, No Murmur, Tachycardia Gastrointestinal: Normal Bowel Sounds, No Organomegaly, No Pulsatile Mass, Non Tender Extremity: Normal Capillary Refill, Normal Inspection, Normal Range of Motion, Non Tender Neurologic/Psychiatric: Alert, Oriented x3, No Motor/Sensory Deficits, Normal Mood/Affect, cushion cover inspector II-XII Norm as Tested Skin: Normal Color, Warm/Dry A/P-Cardiology Admission Diagnosis Atrial flutter HTN HLP Dizziness Assessment/Plan Atrial flutter, EKG done in the office yesterday showing tachycardia with HR in the 130s. Unknown duration, although patient states he has been having palpitations and elevated HR for the past week. Was sent to ER from our office and admitted to ICU on lovenox and Cardizem gtt. HR still in the 130s. Was given 6mg of adenosine this morning showing underlying rhythm atrial flutter. Will keep NPO and plan for TARA/cardioversion later this morning. Hypertension, currently borderline hypotensive, will continue to monitor. 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 Has been followed by Dr. Lopez. Baseline Abnormal EKG with right bundle branch block, left anterior fascicular block. Stress test done 2018 showing good exercise tolerance with no EKG changes. Disc ussed possibility of repeating stress test, patient is refusing at this time. Hyperlipidemia, maintained on Lipitor 10 mg daily, continue to monitor as outpatient. Nonobstructive carotid artery stenosis, most recent duplex done July 2022. Thank you for allowing us to participate in the management of Mr. Holbrook. This is Venus Hernandez PA-C, as a scribe for Dr. Hartmann Patient was seen and evaluated with Venus, he was admitted from the office yesterday to the emergency room I visited with the patient and his and visited with Dr. Smith, examined and interviewed the patient and discussed the management plan. Agree with the current scribed note Was noted to be in atrial flutter with rapid ventricular response This morning I gave him adenosine 6 mg which showed underlying flutter waves. He has been borderline hypotensive I did the TARA this morning which showed normal contractile 2 with mild mitral regurgitation, mild aortic regurgitation, left atrial dilatation Questionable thrombus within the left atrial appendage. Patient will need aggressive anticoagulation and rate controlling medication. I will try digoxin and Cardizem and evaluate tolerance and response VENUS MCWILLIAMS Mar 19, 2023 10:39 SHARONA HARTMANN MD Mar 19, 2023 12:04
[2023-03-19] MEDS ORDERED: LIDOCAINE 2% VISCOUS 15 ML UDC PO ONE (11:00)
[2023-03-19] MEDS ORDERED: proPOfol 200 MG/20 ML (DIPRIVAN) VIAL IV ONE (11:11)
--- NOTE | 2023-03-19 11:17 | History & Physical ---
HPI History of Present Illness: 68 yo M that was sent from Dr Hartmann's office for tachycardia. Patient states that he has been having dizzy spells for the last week and they have been getting worse. Denies any chest pain but has been having some shortness of breath with activity. States that he has not had this feeling previously. No new meds recently. States that he has been taking his normal meds as prescribed. In the room this AM with Dr Hartmann while he gave Adenosine to further evaluate tachycardia with concerns for flutter. Source: patient, spouse Exam Limitations: no limitations Date seen by provider: Mar 19, 2023 Time Seen by Provider: 09:15 Attending Physician Nestor Brown - [facility] Admitting Physician: Cecily Smith MD Attending Physician: Cecily Smith MD Consult Date of Admission Mar 18, 2023 at 17:15 Home Medications Home Medications Reviewed patient Home Medication Reconciliation performed by pharmacy medication reconciliations technician assistant and/or nursing. Patients Allergies have been reviewed. Allergies Coded Allergies: No Known Drug Allergies (Unverified , 06/25/18) [id number] Hx Patient Social History Marrital Status: 2nd Hand Smoke Exposure: Yes Recent Hopitalizations: No Alcohol Use?: Yes Substance type: Caffeine Immunizations Up To Date Influenza Vaccine Up-to-Date: Yes; Up-to-Date First/Initial COVID19 Vaccinat: 09/2020 Second COVID19 Vaccination Misael: 10/2020 Third COVID19 Vaccination Date: NO Past Medical History HTN HLD GERD Family Medical History Family History: CANCER FH: cancer 19 FATHER FHx: cancer Review of Systems ([facility]) Constitutional: dizziness; No fever, No weakness EENTM: no symptoms reported; No mouth pain, No nose congestion, No nose pain Respiratory: No cough; dyspnea on exertion Cardiovascular: No chest pain; palpitations Gastrointestinal: no symptoms reported; No abdominal pain, No loss of appetite, No nausea, No vomiting Genitourinary: no symptoms reported; No dysuria, No frequency, No hematuria Musculoskeletal: no symptoms reported Skin: no symptoms reported Psychiatric/Neurological: No Symptoms Reported Reviewed Test Results Reviewed Test Results Lab Laboratory Tests Test 03/18/23 15:35 03/19/23 03:55 Range/Units White Blood Count 8.7 8.4 4.3-11.0 10^3/uL Red Blood Count 5.29 4.99 4.30-5.52 10^6/uL Hemoglobin 15.3 14.5 13.3-17.7 g/dL Hematocrit 46 43 40-54 % Mean Corpuscular Volume 86 86 80-99 fL Mean Corpuscular Hemoglobin 29 29 25-34 pg Mean Corpuscular Hemoglobin Concent 34 34 32-36 g/dL Red Cell Distribution Width 13.1 13.2 10.0-14.5 % Platelet Count 236 223 130-400 10^3/uL Mean Platelet Volume 10.2 10.7 9.0-12.2 fL Immature Granulocyte % (Auto) 0 1 % Neutrophils (%) (Auto) 70 66 42-75 % Lymphocytes (%) (Auto) 20 22 12-44 % Monocytes (%) (Auto) 8 9 0-12 % Eosinophils (%) (Auto) 2 3 0-10 % Basophils (%) (Auto) 0 1 0-10 % Neutrophils # (Auto) 6.1 5.5 1.8-7.8 10^3/uL Lymphocytes # (Auto) 1.7 1.9 1.0-4.0 10^3/uL Monocytes # (Auto) 0.7 0.7 0.0-1.0 10^3/uL Eosinophils # (Auto) 0.2 0.2 0.0-0.3 10^3/uL Basophils # (Auto) 0.0 0.1 0.0-0.1 10^3/uL Immature Granulocyte # (Auto) 0.0 0.0 0.0-0.1 10^3/uL Prothrombin Time 13.7 12.2-14.7 SEC INR Comment 1.0 0.8-1.4 Activated Partial Thromboplast Time 32 24-35 SEC D-Dimer < 0.27 0.00-0.49 UG/ML Sodium Level 143 140 135-145 MMOL/L Potassium Level 3.5 L 4.1 3.6-5.0 MMOL/L Chloride Level 112 H 112 H 98-107 MMOL/L Carbon Dioxide Level 20 L 20 L 21-32 MMOL/L Anion Gap 11 8 5-14 MMOL/L Blood Urea Nitrogen 16 14 7-18 MG/DL Creatinine 0.96 0.88 0.60-1.30 MG/DL Estimat Glomerular Filtration Rate 86 94 BUN/Creatinine Ratio 17 16 Glucose Level 104 103 70-105 MG/DL Calcium Level 8.6 8.3 L 8.5-10.1 MG/DL Corrected Calcium 8.4 L 8.5-10.1 MG/DL Magnesium Level 1.9 1.7 1.6-2.4 MG/DL Total Bilirubin 0.5 0.1-1.0 MG/DL Aspartate Amino Transf (AST/SGOT) 16 5-34 U/L Alanine Aminotransferase (ALT/SGPT) 28 0-55 U/L Alkaline Phosphatase 94 40-136 U/L Myoglobin 42.0 10.0-92.0 NG/ML Troponin I < 0.028 <0.028 NG/ML B-Type Natriuretic Peptide 102.3 H <100.0 PG/ML Total Protein 7.3 6.4-8.2 GM/DL Albumin 4.2 3.2-4.5 GM/DL Thyroid Stimulating Hormone (TSH) 1.47 0.35-4.94 UIU/ML Phosphorus Level 2.3 2.3-4.7 MG/DL Triglycerides Level 67 <150 MG/DL Cholesterol Level 100 < 200 MG/DL LDL Cholesterol Direct 68 1-129 MG/DL VLDL Cholesterol 13 5-40 MG/DL HDL Cholesterol 28 L 40-60 MG/DL Physical Exam-(CHC) Physical Exam Vital Signs VS - Last 72 Hours, by Label 03/18/23 03/18/23 03/18/23 03/18/23 15:31 16:16 16:46 17:17 Temp 37.9 Pulse 135 134 133 130 Resp 20 20 B/P (MAP) 112/81 (91) 127/86 116/92 121/96 Pulse Ox 94 94 O2 Delivery Room Air Room Air 03/18/23 03/18/23 03/18/23 03/18/23 17:27 17:30 17:34 18:00 Temp 36.6 Pulse 130 131 130 130 Resp 15 7 B/P (MAP) 132/101 (111) 129/101 (110) Pulse Ox 91 90 O2 Delivery Room Air Room Air 03/18/23 03/18/23 03/18/23 03/18/23 18:48 19:00 19:00 20:00 Temp 36.8 Pulse 130 130 131 Resp 26 B/P (MAP) 129/101 110/86 (94) Pulse Ox 90 O2 Delivery Room Air 03/18/23 03/18/23 03/18/23 03/18/23 20:00 20:00 21:00 21:52 Pulse 134 133 Resp 31 25 B/P (MAP) 111/94 (100) 125/95 (105) Pulse Ox 91 90 91 O2 Delivery Room Air Room Air Room Air Nasal Cannula O2 Flow Rate 2.00 03/18/23 03/18/23 03/19/23 03/19/23 22:00 23:00 00:00 00:09 Pulse 131 131 131 Resp 21 25 9 B/P (MAP) 111/95 (100) 101/82 (88) 110/82 (91) Pulse Ox 92 88 92 92 O2 Delivery Nasal Cannula Nasal Cannula Nasal Cannula Nasal Cannula O2 Flow Rate 2.00 2.00 2.00 2.00 03/19/23 03/19/23 03/19/23 03/19/23 00:11 00:52 01:00 01:00 Temp 36.8 Pulse 131 131 132 B/P (MAP) 129/101 104/84 (91) Pulse Ox 93 O2 Delivery Nasal Cannula O2 Flow Rate 2.00 03/19/23 03/19/23 03/19/23 03/19/23 02:00 03:00 04:00 04:00 Pulse 131 133 133 Resp 20 B/P (MAP) 107/83 (91) 119/82 (94) 122/94 (103) Pulse Ox 89 94 93 91 O2 Delivery Nasal Cannula Nasal Cannula Room Air Nasal Cannula O2 Flow Rate 2.00 2.00 2.00 03/19/23 03/19/23 03/19/23 03/19/23 04:36 05:00 05:56 06:00 Temp 36.6 Pulse 131 131 Resp 18 19 B/P (MAP) 136/101 (113) 126/103 (111) Pulse Ox 93 93 92 O2 Delivery Room Air Room Air Nasal Cannula Room Air O2 Flow Rate 2.00 03/19/23 03/19/23 03/19/23 03/19/23 07:00 07:00 08:00 09:00 Pulse 131 131 130 133 Resp 9 9 11 B/P (MAP) 104/78 (87) 110/85 (93) 105/80 (88) Pulse Ox 90 90 90 O2 Delivery Room Air Room Air Room Air 03/19/23 03/19/23 09:26 10:00 Pulse 130 131 Resp 14 B/P (MAP) 108/80 (89) Pulse Ox 90 O2 Delivery Room Air Capillary Refill : Less Than 3 Seconds General Appearance: WD/WN, no apparent distress HEENT: PERRL/EOMI Neck: non-tender, full range of motion, supple Respiratory: chest non-tender, lungs clear, normal breath sounds, no respiratory distress, no accessory muscle use Cardiovascular: normal peripheral pulses, no murmur, tachycardia Gastrointestinal: normal bowel sounds, non tender, soft Back: no CVA tenderness, no vertebral tenderness Extremities: normal range of motion, no calf tenderness, normal capillary refill, pedal edema (trace swelling present) Neurologic/Psychiatric: engineer third assistant II-XII nml as tested, alert, oriented x 3 Skin: normal color, warm/dry Lymphatic: no adenopathy Assessment/Plan Assessment/Plan Admission Status: Inpatient Order (span 2 midnights) Reason for Inpatient Admission: Requires close monitoring and consultation with cardiology (1) Atrial flutter with rapid ventricular response Status: Acute Assessment & Plan: - Cardiology consulted and appreciate recommendations, plan for TARA and Cardioversion today (2) HTN (hypertension) Status: Chronic Assessment & Plan: - Controlled Qualifiers: Qualified Codes: I10 - Essential (primary) hypertension (3) HLD (hyperlipidemia) Status: Chronic Assessment & Plan: - Maintained on Statin Qualifiers: Qualified Codes: E78.5 - Hyperlipidemia, unspecified (4) DVT prophylaxis Status: Acute Assessment & Plan: - Lovenox Treatment dosing CECILY SMITH MD Mar 19, 2023 11:17
--- NOTE | 2023-03-19 12:02 | Cardiac Procedure Note-CS/ASA ---
Pre-Procedure Note Pre-Op Procedure Note Date of Available H&P: Mar 19, 2023 Date H&P Reviewed: Mar 19, 2023 Time H&P Reviewed: 12:02 History & Physical: H&P Reviewed, Patient Examed, No changes noted Pre-Operative Diagnosis: Atrial flutter Moderate Sedation PreProcedure Time 12:02 ASA Score 3 Airway Lungs Heart ASA score ASA 1: a normal healthy patient ASA 2: a patient with a mild systemic disease (mid diabetes, controlled hypertension, obesity ASA 3: a patient with a severe systemic disease that limits activity (angina, COPD, prior Myocardial infarction) ASA 4: a patient with an incapacitating disease that is a constant threat to life (CHF, renal failure) ASA 5: a moribund patient not expected to survive 24 hrs. (ruptured aneurysm) ASA 6: a declared brain- patient whose organs are being harvested. For emergent operations, add the letter E after the classification Mallampati Classification Grade 3 Sedation Plan Analgesia, Amnesia, Plan communicated to team members, Discussed options with patient/fam, Discussed risks with patient/fam The patient is an appropriate candidate to undergo the planned procedure, sedation, and anesthesia. The patient immediately re-assessed prior to indication. SHARONA GARCIA MD Mar 19, 2023 12:02
--- NOTE | 2023-03-19 12:19 | Anesthesia-General Post-Op ---
MAC Patient Condition Mental Status/LOC: Same as Preop Cardiovascular: Satisfactory Nausea/Vomiting: Absent Respiratory: Satisfactory Pain: Controlled Complications: Absent Post Op Complications Complications None Follow Up Care/Instructions Patient Instructions None needed. Anesthesiology Discharge Order Discharge Order Patient is doing well, no complaints, stable vital signs, no apparent adverse anesthesia problems. No complications reported per nursing. RAIMUNDO VOGT CRNA Mar 19, 2023 12:19
[2023-03-19] MEDS ORDERED: DIGOXIN INJECTION 0.25 MG/ML 2 ML AMPULE IV ONE (12:30)
[2023-03-19] MEDS: dilTIAZem 30 MG TABLET PO SCH ×3 (12:37→23:42)
[2023-03-19] MEDS ORDERED: ALFU10TA12 PO (13:39)
[2023-03-19] MEDS ORDERED: OMEG100032 PO (13:39)
[2023-03-19] MEDS ORDERED: LOSA100T58 PO (14:27)
[2023-03-19] MEDS: APIXABAN 5 MG TABLET PO SCH (21:00)
[2023-03-19] MEDS ORDERED: meTOprolol 5 MG/5 ML (LOPRESSOR) VIAL IV SCH (21:00)
--- NOTE | 2023-03-19 23:41 | Progress Note ---
Standard Progress Note Progress Notes/Assess & Plan Date Seen by a Provider: Mar 19, 2023 Time Seen by a Provider: 23:40 Progress/Assessment & Plan asks for sleep aid, will give melatonin MAGALI CARBAJAL MD Mar 19, 2023 23:41
[2023-03-19] MEDS ORDERED: MELATONIN 3 MG TABLET ONE (23:47)
[2023-03-19] MEDS: MELATONIN 3 MG TABLET PO SCH ×2 (23:48→23:49)
[2023-03-20] MEDS: meTOprolol 5 MG/5 ML (LOPRESSOR) VIAL IV SCH ×6 (01:14→21:00)
[2023-03-20 04:39] LABS: BASOPHILS # (AUTO) 0.1 10^3/uL (0.0-0.1); BASOPHILS % (AUTO) 1 % (0-10); EOSINOPHILS # (AUTO) 0.1 10^3/uL (0.0-0.3); EOSINOPHILS % (AUTO) 1 % (0-10); HEMATOCRIT 41 % (40-54); HEMOGLOBIN 14.4 g/dL (13.3-17.7); LYMPHOCYTES # (AUTO) 1.5 10^3/uL (1.0-4.0); LYMPHOCYTES % (AUTO) 16 % (12-44); MEAN CORPUSCULAR HEMOGLOBIN 30 pg (25-34); MEAN CORPUSCULAR HGB CONC 35 g/dL (32-36); MEAN CORPUSCULAR VOLUME 85 fL (80-99); MEAN PLATELET VOLUME 10.8 fL (9.0-12.2); MONOCYTES # (AUTO) 0.9 10^3/uL (0.0-1.0); MONOCYTES % (AUTO) 10 % (0-12); NEUTROPHILS # (AUTO) 6.6 10^3/uL (1.8-7.8); NEUTROPHILS % (AUTO) 72 % (42-75); PLATELET COUNT 227 10^3/uL (130-400); WHITE BLOOD COUNT 9.2 10^3/uL (4.3-11.0)
[2023-03-20 04:52] LABS: ALBUMIN 3.7 GM/DL (3.2-4.5)
[2023-03-20 04:53] LABS: POTASSIUM 3.5 MMOL/L (3.6-5.0)
[2023-03-20 04:54] LABS: CALCIUM 8.2 MG/DL (8.5-10.1)
[2023-03-20 04:55] LABS: TOTAL PROTEIN 6.4 GM/DL (6.4-8.2)
[2023-03-20 04:57] LABS: BILIRUBIN,TOTAL 0.8 MG/DL (0.1-1.0)
[2023-03-20] MEDS: KCL 20 MEQ TAB (K-DUR) PO SCH (04:57)
[2023-03-20] MEDS: POTASSIUM CL 10MEQ/50ML IVPB 50 ML IV SCH (04:57)
[2023-03-20 04:59] LABS: CREATININE SERUM 0.74 MG/DL (0.60-1.30)
[2023-03-20 05:02] LABS: MAGNESIUM 2.1 MG/DL (1.6-2.4)
[2023-03-20] MEDS: MAGNESIUM 1 GM/100 ML IVPB 100 ML IV SCH (05:03)
[2023-03-20] MEDS: dilTIAZem 30 MG TABLET PO SCH (05:09)
[2023-03-20] MEDS ORDERED: KCL 20 MEQ TAB (K-DUR) PO ONE (08:00)
--- NOTE | 2023-03-20 08:12 | Cardiology Progress Note ---
Subjective Date Seen by Provider: Mar 20, 2023 Time Seen by Provider: 08:10 Subjective/Events-last exam Patient was seen at bedside, laying down comfortably, feeling better. Review of Systems General: No Chills, No Night Sweats, No Fatigue, No Malaise, No Appetite, No Other HEENT: No Head Aches, No Visual Changes, No Eye Pain, No Ear Pain, No Dysphasia, No Sinus Congestion, No Post Nasal Drip, No Sore Throat, No Other Pulmonary: No Dyspnea, No Cough, No Pleuritic Chest Pain, No Other Cardiovascular: No: Chest Pain, Palpitations, Orthopnea, Paroxysmal Noc. Dyspnea, Edema, Lt Headedness, Other Objective-Cardiology Exam Last Set of Vital Signs Vital Signs 03/20/23 03/20/23 03:57 06:00 Temp 36.6 Pulse 131 Resp 17 B/P (MAP) 108/87 (94) Pulse Ox 94 O2 Delivery Nasal Cannula O2 Flow Rate 3.00 I&O Intake and Output 03/20/23 00:00 Intake Total 1050 ml Output Total 2750 ml Balance -1700 ml Intake Oral 925 ml IV Total 125 ml Output Urine Total 2750 ml General: Alert, Oriented X3, Cooperative HEENT: Atraumatic, PERRLA Neck: Supple, No JVD, No Thyromegaly Lungs: Clear to Auscultation, Normal Air Movement Heart: Normal S1, Normal S2, No Murmurs, Other (Tachycardia) Abdomen: Normal Bowel Sounds, Soft, No Tenderness, No Hepatosplenomegaly, No Masses Extremities: No Clubbing, No Cyanosis, No Edema, Normal Pulses, No Tenderness/Swelling Skin: No Rashes, No Breakdown, No Significant Lesion Neuro: Normal Gait, Normal Speech, Strength at 5/5 X4 Ext, Normal Tone, Sensation Intact Psych/Mental Status: Mental Status NL, Mood NL Results Lab Laboratory Tests 03/20/23 04:11 A/P-Cardiology Admission Diagnosis Atrial flutter HTN HLP Dizziness Assessment/Plan Atrial flutter, EKG done in the office yesterday showing tachycardia with HR in the 130s. Unknown duration, although patient states he has been having palpitations and elevated HR for the past week. Was sent to ER from our office and admitted to ICU on lovenox and Cardizem gtt. HR still in the 130s. Was given 6mg of adenosine this morning showing underlying rhythm atrial flutter. TARA was done on March 19, 2023, there is a questionable thrombus in the left atrial appendage. We will try rate controlling and started on Eliquis Currently on Cardizem CD 240 mg daily and digoxin 0.25 mg daily, I will add additional Cardizem if needed Hypertension, tolerating Cardizem well. 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 Has been followed by Dr. Lopez. Baseline Abnormal EKG with right bundle branch block, left anterior fascicular block. Stress test done 2018 showing good exercise tolerance with no EKG changes. Discussed possibility of repeating stress test, patient is refusing at this time. Hyperlipidemia, maintained on Lipitor 10 mg daily, continue to monitor as outpatient. Nonobstructive carotid artery stenosis, most recent duplex done July 2022. SHARONA GARCIA MD Mar 20, 2023 08:12
[2023-03-20] MEDS: APIXABAN 5 MG TABLET PO SCH ×2 (08:27→20:56)
[2023-03-20] MEDS: DIGOXIN 0.25 MG TABLET PO SCH (08:27)
[2023-03-20] MEDS: dilTIAZem ER 180 MG CAPSULE PO SCH (08:28)
--- NOTE | 2023-03-20 10:48 | Tele-ICU Progress Note ---
Subjective Date Seen by a Provider: Mar 20, 2023 Time Seen by a Provider: 10:42 Subjective/Events-last exam (Tele-ICU Physician , progress note request of PCP Service provided via interactive audio and video telecommunications E-CARE system to a patient admitted to ICU bed in [facility]. Available chart/ vitals / labs / Images reviewed H&P is from ER notes Patient's information available about PMH, Shx, Fhx allergy reviewed inEMR. ROS as per chart and RN report Now in ICU, hemodynamically stable Video assessment done using teleICU camera, rest of exam as per RN Discussed with RN. Hospital course: (03/18) 68y/o M admitted with symptomatic junctional tachycardia, R BBB & L anterior fascicular block 03/20 pt had TARA. thre is a suspicious clot in Y[place]NA. did not get shocked. on eliquis A/P admitted from cardiology office with symptomatic junctional tachycardia, R BBB & L anterior fascicular block. found out to be A. flutter - cardizem 240 mg po daily - dig 0.25 mg po daily - Eliquis 5 mg pobid -rate is still>130 , asymptomatic now , no CP , on RA - plan as per cards h/o COLON RESECTION 1999 WITH CHEMO- resolved VTE Prophylaxis: eliquis Stress Ulcer Prophylaxis: Plans in collaboration with bedside consultants and IM MDs. Discussed with RN to reach out if any questions or concerns A total of 10 minutes of critical care time was devoted to this patient today, r equired to treat and/or prevent further deterioration of critical care condition ( as above ) . I am remotely monitoring this patient from another state. I am unable to do the bedside exam, and history/physical and pertinent information is taken from other notes in the computer and bedside staff. . Sepsis Event Evaluation Height, Weight, BMI Height: 5'11.00" Weight: 207lbs. 7.0oz. 94.016882up; 31.94 BMI Method:Stated Exam Exam Patient acknowledged, consented, and participated in this virtual visit which was conducted using real time audio/video Vital Signs Date Time Temp Pulse Resp B/P (MAP) Pulse Ox O2 Delivery O2 Flow Rate FiO2 03/20/23 10:00 134 33 116/84 (95) 92 Nasal Cannula 3.00 03/20/23 09:00 130 7 99/75 (83) 90 Nasal Cannula 3.00 03/20/23 08:00 131 22 120/76 (91) 93 Nasal Cannula 3.00 03/20/23 07:00 114 03/20/23 07:00 115 14 104/91 (95) 92 Nasal Cannula 3.00 03/20/23 06:00 131 17 108/87 (94) 94 Nasal Cannula 3.00 03/20/23 05:00 66 19 105/77 (86) 94 Nasal Cannula 3.00 03/20/23 04:00 115 11 107/86 (93) 94 Nasal Cannula 3.00 03/20/23 03:57 36.6 113 14 93 Nasal Cannula 3.00 03/20/23 03:55 93 Nasal Cannula 3.00 03/20/23 03:00 134 33 124/96 (105) 92 Nasal Cannula 3.00 03/20/23 02:00 105 27 99/76 (84) 92 Nasal Cannula 3.00 03/20/23 01:17 Nasal Cannula 3.00 03/20/23 01:14 Nasal Cannula 2.00 03/20/23 01:00 132 03/20/23 01:00 131 16 103/78 (86) 88 Room Air 03/20/23 00:00 131 19 115/85 (95) 93 Room Air 03/19/23 23:59 36.6 03/19/23 23:40 94 Room Air 03/19/23 23:00 131 26 104/83 (90) 89 Room Air 03/19/23 22:00 131 7 114/86 (95) 89 Room Air 03/19/23 21:00 133 8 116/84 (95) 90 Room Air 03/19/23 20:00 135 25 119/86 (97) 89 Room Air 03/19/23 19:52 37.2 03/19/23 19:30 90 Room Air 03/19/23 19:00 135 15 111/87 (95) 90 Room Air 03/19/23 19:00 134 03/19/23 18:00 135 12 112/83 (97) 92 Room Air 03/19/23 17:00 131 18 121/86 (93) 91 Room Air 03/19/23 16:00 130 16 116/79 (96) 90 Room Air 03/19/23 15:40 93 Room Air 03/19/23 15:30 133 12 90 03/19/23 15:00 131 20 103/74 (78) 90 Room Air 03/19/23 15:00 131 03/19/23 14:00 131 24 113/84 (91) 91 Room Air 03/19/23 14:00 131 03/19/23 13:00 129 15 118/93 (104) 89 Room Air 03/19/23 13:00 129 03/19/23 12:00 128 10 97/77 (84) 93 Room Air 03/19/23 12:00 93 Room Air 03/19/23 11:00 133 10 106/72 (83) 93 Room Air I & O 03/20/23 07:00 Intake Total 625 ml Output Total 2875 ml Balance -2250 ml Height & Weight Height: 5'11.00" Weight: 207lbs. 7.0oz. 94.020227fi; 31.94 BMI Method:Stated General Appearance: No Apparent Distress, WD/WN HEENT: PERRL/EOMI, TMs Normal, Normal ENT Inspection, Pharynx Normal Neck: Full Range of Motion, Normal Inspection, Non Tender, Supple Respiratory: Chest Non Tender, Lungs Clear, Normal Breath Sounds, No Accessory Muscle Use, No Respiratory Distress Cardiovascular: No Gallop, No JVD, No Murmur, Tachycardia Capillary Refill: Less Than 3 Seconds Gastrointestinal: normal bowel sounds, non tender, soft Extremity: Normal Capillary Refill, Normal Inspection, Normal Range of Motion, Non Tender Neurologic/Psychiatric: Alert, Oriented x3, No Motor/Sensory Deficits, Normal M ood/Affect, receiving inspector II-XII Norm as Tested Skin: Normal Color, Warm/Dry Results Lab Laboratory Tests 03/18/23 15:35 03/19/23 03:55 03/20/23 04:11 Assessment/Plan Assessment/Plan as above Critical Care: Critically Ill Patient Time spent with patient (mins): 10 OC BARAHONA MD Mar 20, 2023 10:48
[2023-03-20] MEDS ORDERED: dilTIAZem ER 120 MG CAPSULE PO NR (12:30)
--- NOTE | 2023-03-20 16:28 | Progress Note ---
Subjective Subjective/Events-last exam Patient doing well this AM. States that he feels much better. Has been getting up and moving around the room. Continues to have tachycardia in 130s. Unable to have cardioversion for questionable thrombus. Tolerating PO diet Review of Systems General: Fatigue Pulmonary: No Dyspnea, No Cough Cardiovascular: No: Chest Pain, Palpitations, Edema Gastrointestinal: No: Nausea, Vomiting, Abdominal Pain, Diarrhea, Constipation Musculoskeletal: back pain Neurological: No: Weakness, Numbness, Incoordination, Confusion Objective Exam Last Set of Vital Signs Vital Signs Date Time Temp Pulse Resp B/P (MAP) Pulse Ox O2 Delivery O2 Flow Rate FiO2 03/20/23 14:00 133 27 92 Room Air 03/20/23 11:50 36.8 03/20/23 11:14 0.00 Capillary Refill : Less Than 3 Seconds I&O Intake and Output 03/20/23 00:00 Intake Total 1050 ml Output Total 2750 ml Balance -1700 ml Intake Oral 925 ml IV Total 125 ml Output Urine Total 2750 ml General: Alert, Oriented X3, Cooperative, No Acute Distress Lungs: Clear to Auscultation, Normal Air Movement Heart: No Murmurs, Other (Tachycardic rate) Abdomen: Normal Bowel Sounds, Soft, No Tenderness, No Masses Extremities: Other (1+ pitting edema bilateral LE) Neuro: Normal Speech Results/Procedures Lab Laboratory Tests 03/20/23 04:11: White Blood Count 9.2, Red Blood Count 4.84, Hemoglobin 14.4, Hematocrit 41, Mean Corpuscular Volume 85, Mean Corpuscular Hemoglobin 30, Mean Corpuscular Hemoglobin Concent 35, Red Cell Distribution Width 13.0, Platelet Count 227, Mean Platelet Volume 10.8, Immature Granulocyte % (Auto) 0, Neutrophils (%) (Auto) 72, Lymphocytes (%) (Auto) 16, Monocytes (%) (Auto) 10, Eosinophils (%) (Auto) 1, Basophils (%) (Auto) 1, Neutrophils # (Auto) 6.6, Lymphocytes # (Auto) 1.5, Monocytes # (Auto) 0.9, Eosinophils # (Auto) 0.1, Basophils # (Auto) 0.1, Immature Granulocyte # (Auto) 0.0, Sodium Level 140, Potassium Level 3.5L, Chloride Level 113H, Carbon Dioxide Level 18L, Anion Gap 9, Blood Urea Nitrogen 11, Creatinine 0.74, Estimat Glomerular Filtration Rate 99, BUN/Creatinine Ratio 15, Glucose Level 97, Calcium Level 8.2L, Corrected Calcium 8.4L, Magnesium Level 2.1, Total Bilirubin 0.8, Aspartate Amino Transf (AST/SGOT) 14, Alanine Aminotransferase (ALT/SGPT) 18, Alkaline Phosphatase 92, Total Protein 6.4, Albumin 3.7 Microbiology 03/18/23 MRSA Screen - Final, Complete MRSA not isolated Assessment/Plan Assessment/Plan (1) Atrial flutter with rapid ventricular response Status: Acute Assessment & Plan: - Cardiology consulted and appreciate recommendations, plan for TARA and Cardioversion today 03/20: Unable to have cardioversion yesterday due to questionable thrombus, started on OAC, adjusted rate control meds as patient is still tachycardic (2) Atrial thrombus Status: Acute Assessment & Plan: 03/20: OAC, will have f.u TARA per cardiology (3) HTN (hypertension) Status: Chronic Assessment & Plan: - Controlled Qualifiers: Qualified Codes: I10 - Essential (primary) hypertension (4) HLD (hyperlipidemia) Status: Chronic Assessment & Plan: - Maintained on Statin Qualifiers: Qualified Codes: E78.5 - Hyperlipidemia, unspecified (5) DVT prophylaxis Status: Acute Assessment & Plan: - OAC CECILY LEDEZMA MD Mar 20, 2023 16:27
[2023-03-20] MEDS ORDERED: dilTIAZem ER 120 MG CAPSULE PO ONE (17:30)
[2023-03-20] MEDS: MELATONIN 3 MG TABLET PO SCH (20:56)
[2023-03-21] MEDS: meTOprolol 5 MG/5 ML (LOPRESSOR) VIAL IV SCH ×6 (01:36→21:19)
[2023-03-21 04:23] LABS: BASOPHILS # (AUTO) 0.1 10^3/uL (0.0-0.1); BASOPHILS % (AUTO) 1 % (0-10); EOSINOPHILS # (AUTO) 0.3 10^3/uL (0.0-0.3); EOSINOPHILS % (AUTO) 3 % (0-10); HEMATOCRIT 45 % (40-54); HEMOGLOBIN 15.4 g/dL (13.3-17.7); LYMPHOCYTES # (AUTO) 1.9 10^3/uL (1.0-4.0); LYMPHOCYTES % (AUTO) 24 % (12-44); MEAN CORPUSCULAR HEMOGLOBIN 29 pg (25-34); MEAN CORPUSCULAR HGB CONC 34 g/dL (32-36); MEAN CORPUSCULAR VOLUME 86 fL (80-99); MEAN PLATELET VOLUME 10.7 fL (9.0-12.2); MONOCYTES # (AUTO) 0.8 10^3/uL (0.0-1.0); MONOCYTES % (AUTO) 9 % (0-12); NEUTROPHILS % (AUTO) 62 % (42-75); PLATELET COUNT 237 10^3/uL (130-400); WHITE BLOOD COUNT 8.1 10^3/uL (4.3-11.0)
[2023-03-21 04:41] LABS: TOTAL PROTEIN 7.1 GM/DL (6.4-8.2)
[2023-03-21 04:43] LABS: BILIRUBIN,TOTAL 0.7 MG/DL (0.1-1.0)
[2023-03-21 04:45] LABS: CREATININE SERUM 0.78 MG/DL (0.60-1.30)
[2023-03-21] MEDS: POTASSIUM CL 10MEQ/50ML IVPB 50 ML IV SCH (05:37)
[2023-03-21] MEDS: KCL 20 MEQ TAB (K-DUR) PO SCH (05:37)
[2023-03-21] MEDS: MAGNESIUM 1 GM/100 ML IVPB 100 ML IV SCH (05:37)
[2023-03-21] MEDS: dilTIAZem ER 180 MG CAPSULE PO SCH (08:08)
[2023-03-21] MEDS: DIGOXIN 0.25 MG TABLET PO SCH (08:08)
[2023-03-21] MEDS: APIXABAN 5 MG TABLET PO SCH ×2 (08:08→21:19)
--- NOTE | 2023-03-21 11:33 | Progress Note - Cardiology ---
Cardiology SOAP Progress Note Subjective: Lying in bed States he feels fine No c/o CP, SOB or palpitations Objective: I&O/Vital Signs 03/20/23 03/21/23 03/21/23 03/21/23 23:59 00:00 01:00 01:00 Pulse 128 128 128 Resp 15 15 B/P (MAP) 114/86 (95) 112/86 (95) Pulse Ox 96 91 91 O2 Delivery Room Air Nasal Cannula Nasal Cannula O2 Flow Rate 3.00 3.00 03/21/23 03/21/23 03/21/23 03/21/23 02:00 03:00 04:00 04:00 Pulse 125 129 126 Resp 24 14 14 B/P (MAP) 100/81 (87) 120/95 (103) 114/93 (100) Pulse Ox 90 92 93 96 O2 Delivery Nasal Cannula Nasal Cannula Nasal Cannula Room Air O2 Flow Rate 3.00 3.00 3.00 03/21/23 03/21/23 03/21/23 03/21/23 05:00 06:00 07:00 07:00 Pulse 126 125 128 128 Resp 8 B/P (MAP) 104/80 (88) 119/93 (102) 121/99 (105) Pulse Ox 94 92 93 O2 Delivery Nasal Cannula Nasal Cannula Nasal Cannula O2 Flow Rate 3.00 3.00 3.00 03/21/23 03/21/23 03/21/23 03/21/23 07:50 08:00 08:00 09:00 Temp 36.7 Pulse 128 128 Resp 8 30 B/P (MAP) 105/81 (87) 121/91 (100) Pulse Ox 95 93 91 O2 Delivery Room Air Room Air Room Air O2 Flow Rate 03/21/23 03/21/23 10:00 11:00 Pulse 133 129 Resp 9 10 B/P (MAP) 108/87 (96) 119/85 (94) Pulse Ox 91 91 O2 Delivery Room Air Room Air O2 Flow Rate 03/21/23 00:00 Intake Total 900 ml Output Total 1300 ml Balance -400 ml Weight (Pounds): 207 Weight (Ounces): 7.0 Weight (Calculated Kilograms): 94.419364 Constitutional: AAO x 3, well-developed, well-nourished Respiratory: No accessory muscle use, No respiratory distress; chest expansion is symmetric, chest is bilaterally symmetric, lungs clear to auscultation Cardiovascular: regular rate-rhythm; No JVD; S1 and S2 Gastrointestional: No tender; soft, round; No guarding; audible bowel sounds Extremities: no lower extremity edema bilateral Neurologic/Psychiatric: grossly intact (moves all extremities) Skin: No rash on exposed areas, No ulcerations on exposed areas Results/Procedures: Labs Laboratory Tests 03/21/23 03:53: White Blood Count 8.1, Red Blood Count 5.30, Hemoglobin 15.4, Hematocrit 45, Mean Corpuscular Volume 86, Mean Corpuscular Hemoglobin 29, Mean Corpuscular Hemoglobin Concent 34, Red Cell Distribution Width 12.9, Platelet Count 237, Mean Platelet Volume 10.7, Immature Granulocyte % (Auto) 0, Neutrophils (%) (Auto) 62, Lymphocytes (%) (Auto) 24, Monocytes (%) (Auto) 9, Eosinophils (%) (Auto) 3, Basophils (%) (Auto) 1, Neutrophils # (Auto) 5.0, Lymphocytes # (Auto) 1.9, Monocytes # (Auto) 0.8, Eosinophils # (Auto) 0.3, Basophils # (Auto) 0.1, Immature Granulocyte # (Auto) 0.0, Sodium Level 138, Potassium Level 4.0, Chloride Level 112H, Carbon Dioxide Level 18L, Anion Gap 8, Blood Urea Nitrogen 12, Creatinine 0.78, Estimat Glomerular Filtration Rate 97, BUN/Creatinine Ratio 15, Glucose Level 97, Calcium Level 9.0, Corrected Calcium 9.0, Magnesium Level 2.0, Total Bilirubin 0.7, Aspartate Amino Transf (AST/SGOT) 17, Alanine Aminotransferase (ALT/SGPT) 21, Alkaline Phosphatase 107, Total Protein 7.1, Albumin 4.0, Digoxin Level 0.46L Microbiology 03/18/23 MRSA Screen - Final, Complete MRSA not isolated Laboratory Tests 03/20/23 04:11 03/21/23 03:53 A/P: Assessment: Atrial flutter - EKG done at Dr. Hartmann's office 03-19-23 showing tachycardia with HR in the 130s. Unknown duration, although patient states he has been having palpitations and elevated HR for the past week. Was sent to ER from Dr. Hartmann's office and admitted to ICU on lovenox and Cardizem gtt. HR still in the 130s. Was given 6mg of adenosine this morning showing underlying rhythm atrial flutter. - TARA was done on March 19, [address] Hartmann, there is a questionable thrombus in the left atrial appendage. - Started on Eliquis - Rate difficult to control despite multi-drug regimen - Digoxin, BB and Cardizem (Cardizem dose just increased today) - Echocardiogram done in August [address] 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 Has been followed by Dr. Lopez. Baseline Abnormal EKG with right bundle branch block, left anterior fascicular block. Stress test done 2017 showing good exercise tolerance with no EKG changes. Discussed possibility of repeating stress test, patient is refusing at this time. Hyperlipidemia, maintained on Lipitor 10 mg daily, continue to monitor as outpatient. Nonobstructive carotid artery stenosis, most recent duplex done July 2022. Plan: Records from Dr. Hartmann reviewed HR has been difficult to control despite multi-drug regimen - not suitable cand idate for cardioversion d/t questionable thrombus in the left atrial appendage per TARA by Dr. Hartmann on 03-19-23 - continue to adjust medications - has been receiving IV BB - change to oral - check digoxin level - continue OAC Monitor lab JEISON BAEZA Mar 21, 2023 11:33
[2023-03-21] MEDS ORDERED: meTOprolol TARTRATE 25 MG (LOPRESSOR) TABLET PO NR (11:47)
--- NOTE | 2023-03-21 13:15 | Tele-ICU Progress Note ---
Subjective Date Seen by a Provider: Mar 21, 2023 Time Seen by a Provider: 13:14 Subjective/Events-last exam (Tele-ICU Physician , progress note request of PCP Service provided via interactive audio and video telecommunications E-CARE system to a patient admitted to ICU bed in [facility]. Available chart/ vitals / labs / Images reviewed H&P is from ER notes Patient's information available about PMH, Shx, Fhx allergy reviewed inEMR. ROS as per chart and RN report Now in ICU, hemodynamically stable Video assessment done using teleICU camera, rest of exam as per RN Discussed with RN. Hospital course: (03/18) 68y/o M admitted with symptomatic junctional tachycardia, R BBB & L anterior fascicular block 03/20 pt had TARA. thre is a suspicious clot in YOVANA. no cardioversion . on eliquis A/P admitted from cardiology office with symptomatic junctional tachycardia, R BBB & L anterior fascicular block. found out to be A. flutter - cardizem - dig --rate is still>130 , asymptomatic now , no CP , on RA - plan as per cards -TARA was done on March 19, 2023, there is a questionable thrombus in the left atrial appendage no cardioversion - AC with Eliquis 5 mg po bid h/o COLON RESECTION 1999 WITH CHEMO- resolved VTE Prophylaxis: eliquis Stress Ulcer Prophylaxis: Plans in collaboration with bedside consultants and IM MDs. Discussed with RN to reach out if any questions or concerns A total of 5 minutes of critical care time was devoted to this patient today, required to treat and/or prevent further deterioration of critical care condition ( as above ) . I am remotely monitoring this patient from another state. I am unable to do the bedside exam, and history/physical and pertinent information is taken from other notes in the computer and bedside staff. Sepsis Event Evaluation Height, Weight, BMI Height: 5'11.00" Weight: 207lbs. 7.0oz. 94.245493ms; 31.94 BMI Method:Stated Exam Exam Patient acknowledged, consented, and participated in this virtual visit which was conducted using real time audio/video Vital Signs Date Time Temp Pulse Resp B/P (MAP) Pulse Ox O2 Delivery O2 Flow Rate FiO2 03/21/23 13:00 131 8 106/80 (85) 90 Room Air 03/21/23 12:32 130 03/21/23 12:17 36.9 03/21/23 12:00 130 8 108/88 (92) 93 Room Air 03/21/23 11:00 129 10 119/85 (94) 91 Room Air 03/21/23 10:00 133 9 108/87 (96) 91 Room Air 03/21/23 09:00 128 30 121/91 (100) 91 Room Air 03/21/23 08:00 128 8 105/81 (87) 93 Room Air 03/21/23 08:00 95 Room Air 03/21/23 07:50 36.7 03/21/23 07:00 128 03/21/23 07:00 128 8 121/99 (105) 93 Nasal Cannula 3.00 03/21/23 06:00 125 119/93 (102) 92 Nasal Cannula 3.00 03/21/23 05:00 126 104/80 (88) 94 Nasal Cannula 3.00 03/21/23 04:00 96 Room Air 03/21/23 04:00 126 14 114/93 (100) 93 Nasal Cannula 3.00 03/21/23 03:00 129 14 120/95 (103) 92 Nasal Cannula 3.00 03/21/23 02:00 125 24 100/81 (87) 90 Nasal Cannula 3.00 03/21/23 01:00 128 03/21/23 01:00 128 15 112/86 (95) 91 Nasal Cannula 3.00 03/21/23 00:00 128 15 114/86 (95) 91 Nasal Cannula 3.00 03/20/23 23:59 96 Room Air 03/20/23 23:05 Nasal Cannula 3.00 03/20/23 23:00 125 10 104/84 (91) 92 Room Air 03/20/23 22:00 129 114/82 (93) 92 Room Air 03/20/23 21:00 130 22 112/83 (93) 91 Room Air 03/20/23 20:00 96 Room Air 03/20/23 20:00 130 22 104/81 (89) 91 Room Air 03/20/23 19:00 131 35 124/89 (101) 92 Room Air 03/20/23 19:00 129 03/20/23 19:00 37.1 133 18 104/81 (89) 90 Room Air 03/20/23 18:00 111/91 (98) Room Air 03/20/23 17:00 122/100 (107) Room Air 03/20/23 16:00 93 Room Air 03/20/23 16:00 37.3 Room Air 03/20/23 16:00 131 24 92 Room Air 03/20/23 15:00 133 16 91 03/20/23 14:00 133 27 92 Room Air I & O0 03/21/23 07:00 Intake Total 1150 ml Output Total 1700 ml Balance -550 ml Height & Weight Height: 5'11.00" Weight: 207lbs. 7.0oz. 94.500632qh; 31.94 BMI Method:Stated General Appearance: No Apparent Distress, WD/WN HEENT: PERRL/EOMI, TMs Normal, Normal ENT Inspection, Pharynx Normal Neck: Full Range of Motion, Normal Inspection, Non Tender, Supple Respiratory: Chest Non Tender, Lungs Clear, Normal Breath Sounds, No Accessory Muscle Use, No Respiratory Distress Cardiovascular: No Gallop, No JVD, No Murmur, Tachycardia Capillary Refill: Less Than 3 Seconds Gastrointestinal: normal bowel sounds, non tender, soft Extremity: Normal Capillary Refill, Normal Inspection, Normal Range of Motion, Non Tender Neurologic/Psychiatric: Alert, Oriented x3, No Motor/Sensory Deficits, Normal Mood/Affect, u.s. representative II-XII Norm as Tested Skin: Normal Color, Warm/Dry Results Lab Laboratory Tests 03/20/23 04:11 03/21/23 03:53 Assessment/Plan Assessment/Plan 1 HANY VASQUEZ MD Mar 21, 2023 13:15
--- NOTE | 2023-03-21 14:00 | Progress Note ---
Subjective Subjective/Events-last exam Patient states that he is feeling well this AM. Has been up moving around the room. Tolerating PO diet. Review of Systems Pulmonary: No Dyspnea, No Cough Cardiovascular: No: Chest Pain, Palpitations Gastrointestinal: No: Nausea, Vomiting, Abdominal Pain, Diarrhea, Constipation Musculoskeletal: back pain Neurological: No: Weakness, Incoordination, Confusion Objective Exam Last Set of Vital Signs Vital Signs Date Time Temp Pulse Resp B/P (MAP) Pulse Ox O2 Delivery O2 Flow Rate FiO2 03/21/23 13:00 131 8 106/80 (85) 90 Room Air 03/21/23 12:17 36.9 03/21/23 10:00 Capillary Refill : Less Than 3 Seconds I&O Intake and Output 03/21/23 00:00 Intake Total 1200 ml Output Total 2375 ml Balance -1175 ml Intake Oral 1200 ml Output Urine Total 2375 ml # Voids 5 # Bowel Movements 1 General: Alert, Oriented X3, No Acute Distress Lungs: Clear to Auscultation, Normal Air Movement Heart: No Murmurs, Other (tachycardic) Abdomen: Normal Bowel Sounds, Soft, No Tenderness, No Masses Extremities: No Edema, No Tenderness/Swelling Neuro: Normal Speech Results/Procedures Lab Laboratory Tests 03/21/23 03:53: White Blood Count 8.1, Red Blood Count 5.30, Hemoglobin 15.4, Hematocrit 45, Mean Corpuscular Volume 86, Mean Corpuscular Hemoglobin 29, Mean Corpuscular Hemoglobin Concent 34, Red Cell Distribution Width 12.9, Platelet Count 237, Mean Platelet Volume 10.7, Immature Granulocyte % (Auto) 0, Neutrophils (%) (Aut o) 62, Lymphocytes (%) (Auto) 24, Monocytes (%) (Auto) 9, Eosinophils (%) (Auto) 3, Basophils (%) (Auto) 1, Neutrophils # (Auto) 5.0, Lymphocytes # (Auto) 1.9, Monocytes # (Auto) 0.8, Eosinophils # (Auto) 0.3, Basophils # (Auto) 0.1, Immature Granulocyte # (Auto) 0.0, Sodium Level 138, Potassium Level 4.0, Chloride Level 112H, Carbon Dioxide Level 18L, Anion Gap 8, Blood Urea Nitrogen 12, Creatinine 0.78, Estimat Glomerular Filtration Rate 97, BUN/Creatinine Ratio 15, Glucose Level 97, Calcium Level 9.0, Corrected Calcium 9.0, Magnesium Level 2.0, Total Bilirubin 0.7, Aspartate Amino Transf (AST/SGOT) 17, Alanine Aminotransferase (ALT/SGPT) 21, Alkaline Phosphatase 107, Total Protein 7.1, Albumin 4.0, Digoxin Level 0.46L Microbiology 03/18/23 MRSA Screen - Final, Complete MRSA not isolated Assessment/Plan Assessment/Plan (1) Atrial flutter with rapid ventricular response Status: Acute Assessment & Plan: - Cardiology consulted and appreciate recommendations, plan for TARA and Cardioversion today 03/20: Unable to have cardioversion yesterday due to questionable thrombus, started on OAC, adjusted rate control meds as patient is still tachycardic 03/21: Remains tachycardic, defer to cardiology for medication adjustments (2) Atrial thrombus Status: Acute Assessment & Plan: 03/20: OAC, will have f.u TARA per cardiology (3) HTN (hypertension) Status: Chronic Assessment & Plan: - Controlled Qualifiers: Qualified Codes: I10 - Essential (primary) hypertension (4) HLD (hyperlipidemia) Status: Chronic Assessment & Plan: - Maintained on Statin Qualifiers: Qualified Codes: E78.5 - Hyperlipidemia, unspecified (5) DVT prophylaxis Status: Acute Assessment & Plan: - OAC CECILY LEDEZMA MD Mar 21, 2023 14:00
--- NOTE | 2023-03-21 16:07 | Progress Note - Cardiology ---
Cardiology SOAP Progress Note Subjective: Gen weakness, but improving No cp or palp or syncope No n/v/d No focal weakness No shortness of breath Objective: I&O/Vital Signs 03/21/23 03/21/23 03/21/23 03/21/23 05:00 06:00 07:00 07:00 Pulse 126 125 128 128 Resp 8 B/P (MAP) 104/80 (88) 119/93 (102) 121/99 (105) Pulse Ox 94 92 93 O2 Delivery Nasal Cannula Nasal Cannula Nasal Cannula O2 Flow Rate 3.00 3.00 3.00 03/21/23 03/21/23 03/21/23 03/21/23 07:50 08:00 08:00 09:00 Temp 36.7 Pulse 128 128 Resp 8 30 B/P (MAP) 105/81 (87) 121/91 (100) Pulse Ox 95 93 91 O2 Delivery Room Air Room Air Room Air O2 Flow Rate 03/21/23 03/21/23 03/21/23 03/21/23 10:00 11:00 12:00 12:00 Pulse 133 129 130 Resp 9 10 8 B/P (MAP) 108/87 (96) 119/85 (94) 108/88 (92) Pulse Ox 91 91 95 93 O2 Delivery Room Air Room Air Room Air Room Air O2 Flow Rate 03/21/23 03/21/23 03/21/23 03/21/23 12:17 12:32 13:00 14:00 Temp 36.9 Pulse 130 131 111 Resp 8 27 B/P (MAP) 106/80 (85) 114/81 (90) Pulse Ox 90 O2 Delivery Room Air Room Air 03/21/23 15:00 Pulse 102 B/P (MAP) 92/78 (81) Pulse Ox 88 O2 Delivery Room Air 03/21/23 00:00 Intake Total 900 ml Output Total 1300 ml Balance -400 ml Weight (Pounds): 207 Weight (Ounces): 7.0 Weight (Calculated Kilograms): 94.025148 Constitutional: AAO x 3, well-developed, well-nourished Respiratory: No accessory muscle use, No respiratory distress; chest expansion is symmetric, chest is bilaterally symmetric, lungs clear to auscultation Cardiovascular: regular rate-rhythm; No JVD; S1 and S2 Gastrointestional: No tender; soft, round; No guarding; audible bowel sounds Extremities: no lower extremity edema bilateral Neurologic/Psychiatric: grossly intact (moves all extremities) Skin: No rash on exposed areas, No ulcerations on exposed areas Results/Procedures: Labs Laboratory Tests 03/21/23 03:53: White Blood Count 8.1, Red Blood Count 5.30, Hemoglobin 15.4, Hematocrit 45, Mean Corpuscular Volume 86, Mean Corpuscular Hemoglobin 29, Mean Corpuscular Hemoglobin Concent 34, Red Cell Distribution Width 12.9, Platelet Count 237, Mean Platelet Volume 10.7, Immature Granulocyte % (Auto) 0, Neutrophils (%) (Auto) 62, Lymphocytes (%) (Auto) 24, Monocytes (%) (Auto) 9, Eosinophils (%) (Auto) 3, Basophils (%) (Auto) 1, Neutrophils # (Auto) 5.0, Lymphocytes # (Auto) 1.9, Monocytes # (Auto) 0.8, Eosinophils # (Auto) 0.3, Basophils # (Auto) 0.1, Immature Granulocyte # (Auto) 0.0, Sodium Level 138, Potassium Level 4.0, Chloride Level 112H, Carbon Dioxide Level 18L, Anion Gap 8, Blood Urea Nitrogen 12, Creatinine 0.78, Estimat Glomerular Filtration Rate 97, BUN/Creatinine Ratio 15, Glucose Level 97, Calcium Level 9.0, Corrected Calcium 9.0, Magnesium Level 2.0, Total Bilirubin 0.7, Aspartate Amino Transf (AST/SGOT) 17, Alanine Aminotransferase (ALT/SGPT) 21, Alkaline Phosphatase 107, Total Protein 7.1, Albumin 4.0, Digoxin Level 0.46L Microbiology 03/18/23 MRSA Screen - Final, Complete MRSA not isolated A/P: Assessment: Atrial flutter - EKG done at Dr. Hartmann's office 03-19-23 showing tachycardia with HR in the 130s. Unknown duration, although patient states he has been having palpitations and elevated HR for the past week. Was sent to ER from Dr. Hartmann's office and admitted to ICU on lovenox and Cardizem gtt. HR still in the 130s. Was given 6mg of adenosine this morning showing underlying rhythm atrial flutter. - TARA was done on March 19, [address] Hartmann, there is a questionable thrombus in the left atrial appendage. - Started on Eliquis - Rate difficult to control despite multi-drug regimen - Digoxin, BB and Cardizem (Cardizem dose just increased today) - Echocardiogram done in August [address] 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 Has been followed by Dr. Lopez. Baseline Abnormal EKG with right bundle branch block, left anterior fascicular block. Stress test done 2018 showing good exercise tolerance with no EKG changes. Discussed possibility of repeating stress test, patient is refusing at this time. Hyperlipidemia, maintained on Lipitor 10 mg daily, continue to monitor as outpatient. Nonobstructive carotid artery stenosis, most recent duplex done July 2022. Plan: Records from Dr. Hartmann reviewed HR has been difficult to control despite multi-drug regimen - not suitable candidate for cardioversion d/t questionable thrombus in the left atrial appendage per TARA by Dr. Hartmann on 03-19-23 - continue to adjust medications - has been receiving IV BB - change to oral - check digoxin level - continue OAC Monitor lab LAUREN SALAS MD FACP [facility] Mar 21, 2023 16:07
[2023-03-21] MEDS ORDERED: dilTIAZem ER 120 MG CAPSULE PO SCH (21:00)
[2023-03-21] MEDS: meTOprolol TARTRATE 25 MG (LOPRESSOR) TABLET PO SCH (21:19)
[2023-03-21] MEDS: MELATONIN 3 MG TABLET PO SCH (21:19)
[2023-03-22] MEDS: meTOprolol 5 MG/5 ML (LOPRESSOR) VIAL IV SCH ×3 (00:52→08:14)
[2023-03-22 05:11] LABS: ALBUMIN 3.9 GM/DL (3.2-4.5); BILIRUBIN,TOTAL 0.7 MG/DL (0.1-1.0); CREATININE SERUM 0.78 MG/DL (0.60-1.30); MAGNESIUM 1.8 MG/DL (1.6-2.4); POTASSIUM 3.9 MMOL/L (3.6-5.0); TOTAL PROTEIN 6.8 GM/DL (6.4-8.2)
[2023-03-22] MEDS: POTASSIUM CL 10MEQ/50ML IVPB 50 ML IV SCH (05:14)
[2023-03-22] MEDS: KCL 20 MEQ TAB (K-DUR) PO SCH (05:14)
[2023-03-22] MEDS: MAGNESIUM 1 GM/100 ML IVPB 100 ML IV SCH ×3 (05:14→07:51)
--- NOTE | 2023-03-22 07:59 | Tele-ICU Progress Note ---
Subjective Date Seen by a Provider: Mar 22, 2023 Time Seen by a Provider: 07:54 Subjective/Events-last exam (Tele-ICU Physician , consultation as per request of PCP Service provided via interactive audio and video telecommunications E-CARE system to a patient admitted to ICU bed in [facility]. Available chart/ vitals / labs / Images reviewed H&P is from ER notes Patient's information available about PMH, Shx, Fhx allergy reviewed in EMR. ROS as per chart and RN report Now in ICU, hemodynamically stable Video assessment done using teleICU camera, rest of exam as per RN Discussed with RN. 68 yo M admitted with junctional tachycardia, RBBB and LASH, TARA done 03/20 suspicious for clot, showed a flutter, On Eliquis 5 mg bid, digoxin 0.25 mg/d, Metroprolol 25 mg bic Was on IV Cardizem with V rate Now on po Cardizem 120 mg/night, pulse still up to 120 to 130 Sepsis Event Evaluation Height, Weight, BMI Height: 5'11.00" Weight: 207lbs. 7.0oz. 94.689996hr; 31.75 BMI Method:Stated Exam Exam Patient acknowledged, consented, and participated in this virtual visit which was conducted using real time audio/video Vital Signs Date Time Temp Pulse Resp B/P (MAP) Pulse Ox O2 Delivery O2 Flow Rate FiO2 03/22/23 07:35 36.2 Nasal Cannula 2.50 03/22/23 07:00 119 03/22/23 07:00 128 118/104 (111) 93 Nasal Cannula 2.00 03/22/23 06:00 104 91 Nasal Cannula 2.00 03/22/23 05:00 129 18 113/94 (100) 94 Nasal Cannula 2.00 03/22/23 04:28 93 Nasal Cannula 2.00 03/22/23 04:00 36.9 129 18 121/89 (94) 92 Nasal Cannula 2.00 03/22/23 03:00 128 18 108/84 (93) 93 Nasal Cannula 2.00 03/22/23 02:00 125 104/84 (90) 92 Nasal Cannula 2.00 03/22/23 01:00 124 18 117/91 (100) 92 Nasal Cannula 2.00 03/22/23 01:00 124 03/22/23 00:00 36.6 125 18 121/105 (111) 95 Nasal Cannula 2.00 03/21/23 23:59 94 Nasal Cannula 2.00 03/21/23 23:00 125 104/86 (92) 92 Nasal Cannula 2.00 03/21/23 22:00 112 106/90 (94) 92 Nasal Cannula 2.00 03/21/23 21:00 128 123/93 (99) 92 Room Air 03/21/23 20:05 93 Room Air 03/21/23 20:00 36.9 129 18 123/83 (91) 89 Room Air 03/21/23 19:00 130 18 132/101 (106) 91 Room Air 03/21/23 19:00 130 03/21/23 18:00 130 132/107 (114) 90 Room Air 03/21/23 17:00 126 123/87 (92) 92 Room Air 03/21/23 16:09 36.8 03/21/23 16:00 95 Room Air 03/21/23 16:00 112 108/79 (83) 89 Room Air 03/21/23 15:00 102 92/78 (81) 88 Room Air 03/21/23 14:00 111 27 114/81 (90) Room Air 03/21/23 13:00 131 8 106/80 (85) 90 Room Air 03/21/23 12:32 130 03/21/23 12:17 36.9 03/21/23 12:00 130 8 108/88 (92) 93 Room Air 03/21/23 12:00 95 Room Air 03/21/23 11:00 129 10 119/85 (94) 91 Room Air 03/21/23 10:00 133 9 108/87 (96) 91 Room Air 03/21/23 09:00 128 30 121/91 (100) 91 Room Air 03/21/23 08:00 128 8 105/81 (87) 93 Room Air 03/21/23 08:00 95 Room Air I & O 03/22/23 07:00 Intake Total 1640 ml Output Total 1875 ml Balance -235 ml Height & Weight Height: 5'11.00" Weight: 207lbs. 7.0oz. 94.015903fr; 31.75 BMI Method:Stated General Appearance: No Apparent Distress, WD/WN HEENT: PERRL/EOMI, TMs Normal, Normal ENT Inspection, Pharynx Normal Neck: Full Range of Motion, Normal Inspection, Non Tender, Supple Respiratory: Chest Non Tender, Lungs Clear, Normal Breath Sounds, No Accessory Muscle Use, No Respiratory Distress Cardiovascular: No Gallop, No JVD, No Murmur, Tachycardia (rate goes up to 120 to 130) Capillary Refill: Less Than 3 Seconds Gastrointestinal: normal bowel sounds, non tender, soft Extremity: Normal Capillary Refill, Normal Inspection, Normal Range of Motion, Non Tender, No Pedal Edema Neurologic/Psychiatric: Alert, Oriented x3, No Motor/Sensory Deficits, Normal Mood/Affect, log tumbler II-XII Norm as Tested Skin: Normal Color, Warm/Dry Results Lab Laboratory Tests 03/21/23 03:53 03/22/23 04:14 Assessment/Plan Assessment/Plan symptomatic atrial flutter, will continue on po Eliquis and po Cardizem, digoxin, po metoprolol Cardiology to see about changes in rate control meds Critical Care: Critically Ill Patient Time spent with patient (mins): 25 MAGALI CARBAJAL MD Mar 22, 2023 07:59
[2023-03-22] MEDS ORDERED: KCL 20 MEQ TAB (K-DUR) PO ONE (08:00)
--- NOTE | 2023-03-22 08:09 | Progress Note ---
Standard Progress Note Progress Notes/Assess & Plan Date Seen by a Provider: Mar 22, 2023 Diagnosis/Problems Diagnosis/Problems (1) Tachycardia Status: Acute Assessment & Plan: Secondary to atrial flutter with RVR Manage per below (2) Atrial flutter with rapid ventricular response Status: Acute Assessment & Plan: Continues to be tachycardic Cardiology following s/p TARA on 03/19 showing questionable thrombus, thus not a candidate for cardi oversion (3) Atrial thrombus Status: Acute (4) HTN (hypertension) Status: Chronic Qualifiers: Qualified Codes: I10 - Essential (primary) hypertension (5) HLD (hyperlipidemia) Status: Chronic Qualifiers: Qualified Codes: E78.5 - Hyperlipidemia, unspecified (6) DVT prophylaxis Status: Acute ANNIA ESPINOZA MD Mar 22, 2023 08:09
[2023-03-22] MEDS: APIXABAN 5 MG TABLET PO SCH (08:13)
[2023-03-22] MEDS: DIGOXIN 0.25 MG TABLET PO SCH (08:13)
[2023-03-22] MEDS: meTOprolol TARTRATE 25 MG (LOPRESSOR) TABLET PO SCH (08:14)
[2023-03-22] MEDS: dilTIAZem ER 180 MG CAPSULE PO SCH (08:14)
--- NOTE | 2023-03-22 10:51 | Progress Note ---
ANNIA SIMS MD 03/22/23 1051: Subjective HPI/CC On Admission Date Seen by Provider: Mar 22, 2023 Time Seen by Provider: 09:25 Tachycardia Subjective/Events-last exam Patient is doing well today, has no concerns. Is wondering when he will be able to go home. He continues to be asymptomatic, denying any chest pain, shortness of breath or palpitations despite his continued tachycardia. In addition, he is continuing to require oxygen, does not wear oxygen at home. Review of Systems General: No Fatigue; Appetite HEENT: No Head Aches Pulmonary: No Dyspnea, No Cough Cardiovascular: No: Chest Pain, Palpitations, Edema Gastrointestinal: No: Nausea, Vomiting, Diarrhea, Constipation Genitourinary: No Dysuria Neurological: No: Weakness Objective Exam Vital Signs Vital Signs Date Time Temp Pulse Resp B/P (MAP) Pulse Ox O2 Delivery O2 Flow Rate FiO2 03/22/23 12:00 128 16 111/91 (96) 92 Nasal Cannula 2.50 03/22/23 11:26 36.8 Capillary Refill : Less Than 3 Seconds General Appearance: No Apparent Distress, WD/WN HEENT: PERRL/EOMI Neck: Full Range of Motion Respiratory: Chest Non Tender, Lungs Clear, Normal Breath Sounds, No Accessory Muscle Use, No Respiratory Distress Cardiovascular: No No Murmur; Irregularly Irregular, Tachycardia Gastrointestinal: Normal Bowel Sounds, No Organomegaly, Non Tender, Soft Extremity: Normal Inspection, No Pedal Edema Neurologic/Psychiatric: Alert, Oriented x3 Skin: Warm/Dry Results/Procedures Lab Laboratory Tests 03/22/23 04:14 Patient resulted labs reviewed. Assessment/Plan Assessment and Plan Assess & Plan/Chief Complaint Atrial flutter with RVR Diagnosis/Problems Diagnosis/Problems (1) Tachycardia Status: Acute Assessment & Plan: Secondary to atrial flutter with RVR Manage per below (2) Atrial flutter with rapid ventricular response Status: Acute Assessment & Plan: Continues to be tachycardic and inconsistent atrial flutter. Continues to be asymptomatic Patient is currently on Dilt for 80 mg total daily, metoprolol 25 mg twice daily p.o., metoprolol 2.5 mg IV every 4 hours, digoxin 0.25 mg daily p.o. s/p TARA on 03/19 showing questionable thrombus, thus not a candidate for cardioversion Will defer to cardiology for recommendations Continue Eliquis for anticoagulation Wean oxygen as tolerated (3) Atrial thrombus Status: Acute Assessment & Plan: Per above, noted on prior TARA Monitor indication for cardioversion (4) Oxygen desaturation Status: Acute Assessment & Plan: Patient not on oxygen at home Currently on 2.5 L, likely secondary to increased stress on heart and lungs with the atrial fibrillation with RVR Wean as tolerated to maintain saturations above 92% (5) HTN (hypertension) Status: Chronic Assessment & Plan: Well-controlled, will continue to monitor Qualifiers: Qualified Codes: I10 - Essential (primary) hypertension (6) DVT prophylaxis Status: Acute Assessment & Plan: Continue Eliquis as per above YVES CANNON DO 03/22/23 1537: Assessment/Plan Assessment and Plan Assess & Plan/Chief Complaint Rounded with Dr Sims and interviewed the patient and discussed case in- depth with results review and med management. ANNIA SIMS MD Mar 22, 2023 10:51 YVES CANNON DO Mar 22, 2023 15:37
--- NOTE | 2023-03-22 13:16 | Progress Note - Cardiology ---
Cardiology SOAP Progress Note Subjective: No cp or palp or syncope or shortness of breath Insists on going home. Says feels well and does not wish to stay in the hospital any longer Objective: I&O/Vital Signs 03/22/23 03/22/23 03/22/23 03/22/23 02:00 03:00 04:00 04:28 Temp 36.9 Pulse 125 128 129 Resp 18 18 B/P (MAP) 104/84 (90) 108/84 (93) 121/89 (94) Pulse Ox 92 93 92 93 O2 Delivery Nasal Cannula Nasal Cannula Nasal Cannula Nasal Cannula O2 Flow Rate 2.00 2.00 2.00 2.00 03/22/23 03/22/23 03/22/23 03/22/23 05:00 06:00 07:00 07:00 Pulse 129 104 128 119 Resp 18 B/P (MAP) 113/94 (100) 118/104 (111) Pulse Ox 94 91 93 O2 Delivery Nasal Cannula Nasal Cannula Nasal Cannula O2 Flow Rate 2.00 2.00 2.00 03/22/23 03/22/23 03/22/23 03/22/23 07:35 08:00 08:00 09:00 Temp 36.2 Pulse 131 129 Resp 29 B/P (MAP) 126/113 (118) 116/60 (75) Pulse Ox 92 92 92 O2 Delivery Nasal Cannula Room Air Nasal Cannula Nasal Cannula O2 Flow Rate 2.50 2.50 2.50 03/22/23 03/22/23 03/22/23 03/22/23 10:00 11:00 11:26 12:00 Temp 36.8 Pulse 133 128 Resp 15 14 B/P (MAP) 102/76 (84) 110/80 (89) Pulse Ox 90 91 92 O2 Delivery Nasal Cannula Nasal Cannula Nasal Cannula Room Air O2 Flow Rate 2.50 2.50 2.50 03/22/23 03/22/23 12:00 12:46 Pulse 128 128 Resp 16 B/P (MAP) 111/91 (96) Pulse Ox 92 O2 Delivery Nasal Cannula O2 Flow Rate 2.50 03/22/23 00:00 Intake Total 1200 ml Output Total 950 ml Balance 250 ml Weight (Pounds): 207 Weight (Ounces): 7.0 Weight (Calculated Kilograms): 94.038178 Constitutional: AAO x 3, well-developed, well-nourished Respiratory: No accessory muscle use, No respiratory distress; chest expansion is symmetric, chest is bilaterally symmetric, lungs clear to auscultation Cardiovascular: regular rate-rhythm; No JVD; S1 and S2 Gastrointestional: No tender; soft, round; No guarding; audible bowel sounds Extremities: no lower extremity edema bilateral Neurologic/Psychiatric: grossly intact (moves all extremities) Skin: No rash on exposed areas, No ulcerations on exposed areas Results/Procedures: Labs Laboratory Tests 03/22/23 04:14: Sodium Level 138, Potassium Level 3.9, Chloride Level 110H, Carbon Dioxide Level 19L, Anion Gap 9, Blood Urea Nitrogen 11, Creatinine 0.78, Estimat Glomerular Filtration Rate 97, BUN/Creatinine Ratio 14, Glucose Level 99, Calcium Level 9.0, Corrected Calcium 9.1, Magnesium Level 1.8, Total Bilirubin 0.7, Aspartate Amino Transf (AST/SGOT) 17, Alanine Aminotransferase (ALT/SGPT) 27, Alkaline Phosphatase 111, Total Protein 6.8, Albumin 3.9 Microbiology 03/18/23 MRSA Screen - Final, Complete MRSA not isolated Laboratory Tests 03/21/23 03:53 03/22/23 04:14 A/P: Assessment: Atrial flutter - EKG done at Dr. Hartmann's office 03-19-23 showing tachycardia with HR in the 130s. Unknown duration, although patient states he has been having palpitations and elevated HR for the past week. Was sent to ER from Dr. Hartmann's office and admitted to ICU on lovenox and Cardizem gtt. HR still in the 130s. Was given 6mg of adenosine this morning showing underlying rhythm atrial flutter. - TARA was done on March 19, [address] Hartmann, there is a questionable thrombus in the left atrial appendage. - Started on Eliquis - Rate difficult to control despite multi-drug regimen - Digoxin, BB and Cardizem - TARA on 03-19-[address] 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 Has been followed by Dr. Lopez. Baseline abnormal EKG with right bundle branch block, left anterior fascicular block. Stress test done 2018 showing good exercise tolerance with no EKG changes. Hyperlipidemia - treated with atorvastatin Nonobstructive carotid artery stenosis - most recent u/s July 2022. Plan: Records from Dr. Hartmann reviewed HR has been difficult to control despite multi-drug regimen - not suitable candidate for cardioversion d/t questionable thrombus in the left atrial appendage per TARA by Dr. Hartmann on 03-19-23 Increase oral beta-estela. iv beta-estela d/c'd Continue dilt and dig Pt insists on going home. Advised to return to ER if any symptoms, otherwise outpt f/u early next week LAUREN SALAS MD FACP [facility] Mar 22, 2023 13:16
[2023-03-22] MEDS ORDERED: DIGO250T15 PO (15:47)
[2023-03-22] MEDS ORDERED: APIX5TAB PO (15:47)
[2023-03-22] MEDS ORDERED: METO50TA15 PO (15:47)
[2023-03-22] MEDS ORDERED: DILT180C85 PO (15:47)
--- NOTE | 2023-03-22 15:56 | Discharge Summary ---
ANNIA ESPINOZA MD 03/22/23 1556: Discharge Summary Hospital Course Problems/Dx: (1) Tachycardia Status: Acute Assessment & Plan: Secondary to atrial flutter See problem below Unable to control rate despite multi-drug regimen (2) Atrial flutter with rapid ventricular response Status: Acute Assessment & Plan: Patient continues to be in atrial flutter with RVR despite multiple medications Unable to cardiovert due to questionable thrombus on prior TARA Will discharge patient on metoprolol 50mg BID, diltiazem 360 ER, digoxin 0.25mg Anticoagulation with Eliquis 5mg Plan to follow up with cardiology early next week in the outpatient (3) Atrial thrombus Status: Chronic Assessment & Plan: Noted to have questionable thrombus in the left atrial appendage on TARA completed by Dr. Hartmann on 03/19/23 (4) Oxygen desaturation Status: Resolved Assessment & Plan: Likely secondary to atrial flutter (5) HTN (hypertension) Status: Chronic Qualifiers: Qualified Codes: I10 - Essential (primary) hypertension (6) DVT prophylaxis Status: Resolved Hospital Course Date of Admission: Mar 18, 2023 at 17:15 Admission Diagnosis : Tachycardia Family Physician/Provider: Nestor Brown - [facility] Date of Discharge: 03/22/23 Discharge Diagnosis: [Atrial flutter with RVR] Hospital Course: [Patient presented from Dr. Hartmann's office for tachycardia and identification of abnormal heart rhythm on EKG. Cardiology was consulted in the hospital. Patient was given adenosine to identify the underlying rhythm of atrial flutter. He underwent TARA on 03/19/23 where it was noted that patient had a questionable thrombus in the left atrial appendage. Thus patient was not a good candidate for cardioversion. Multiple medication adjustments were made with rate and rhythm controlling medications with no success in converting patient's rhythm. Patient ultimately insisted on discharge. He was thus discharged on the above doses of medications with close follow up in the outpatient with cardiology. Patient was otherwise stable prior to discharge] Labs and Pending Lab Test: Laboratory Tests 03/22/23 04:14: Sodium Level 138, Potassium Level 3.9, Chloride Level 110H, Carbon Dioxide Level 19L, Anion Gap 9, Blood Urea Nitrogen 11, Creatinine 0.78, Estimat Glomerular Filtration Rate 97, BUN/Creatinine Ratio 14, Glucose Level 99, Calcium Level 9.0, Corrected Calcium 9.1, Magnesium Level 1.8, Total Bilirubin 0.7, Aspartate Amino Transf (AST/SGOT) 17, Alanine Aminotransferase (ALT/SGPT) 27, Alkaline Phosphatase 111, Total Protein 6.8, Albumin 3.9 Microbiology 03/18/23 MRSA Screen - Final, Complete MRSA not isolated Home Meds Active Eliquis (Apixaban) 5 Mg Tablet 5 Mg PO BID Diltiazem 24Hr ER (Diltiazem HCl) 180 Mg Cap.er.24h 360 Mg PO DAILY Metoprolol Tartrate 50 Mg Tablet 50 Mg PO BID Digox (Digoxin) 250 Mcg (0.25 Mg) Tablet 0.25 Mg PO DAILY Reported Alfuzosin HCl ER (Alfuzosin HCl) 10 Mg Tab.er.24h 10 Mg PO DAILY Fish Oil 1,000 mg Softgel (Rodney-3/Dha/Epa/Fish Oil) 1,000 Mg (120 Mg-180 Mg) Capsule 1,000 Mg PO HS Atorvastatin Calcium 10 Mg Tablet 10 Mg PO HS Aspirin 81 Mg Tab.chew 81 Mg PO DAILY Turmeric 450-50 mg Capsule (Turmeric/Turmeric Root Extract) 450 Mg-50 Mg Capsule 1 Each PO HS Multivitamins (Multivitamin) 1 Each Tablet 1 Each PO HS Vitamin B-12 (Cyanocobalamin (Vitamin B-12)) 1,000 Mcg Tablet 1,000 Mcg PO HS Pantoprazole Sodium 40 Mg Tablet.dr 40 Mg PO HS Assessment/Pt Instructions 68 yo M in atrial flutter with RVR not well controlled despite multidrug regimen. Recommend continuing medications on discharge and close follow up with cardiology in the outpatient. Discharge Instructions Discharge Diet: No Restrictions Activity as Tolerated: Yes Discharge Physical Examination Vital Signs Vital Signs Date Time Temp Pulse Resp B/P (MAP) Pulse Ox O2 Delivery O2 Flow Rate FiO2 03/22/23 15:53 36.7 03/22/23 15:00 104 14 102/81 (93) 91 Nasal Cannula 2.50 General Appearance: No Apparent Distress HEENT: PERRL/EOMI Respiratory: Chest Non Tender, Lungs Clear, Normal Breath Sounds, No Accessory Muscle Use, No Respiratory Distress Cardiovascular: No Edema, No Murmur, Irregularly Irregular Gastrointestinal: Normal Bowel Sounds, Non Tender, Soft Extremity: Normal Range of Motion Skin: Warm/Dry Neurologic/Psychiatric: Alert, Oriented x3 Allergies: Coded Allergies: No Known Drug Allergies (Unverified , 06/25/18) Discharge Summary Date of Admission Mar 18, 2023 at 17:15 Date of Discharge Discharge Date: Mar 22, 2023 Discharge Diagnosis Atrial flutter with RVR (1) Tachycardia Status: Acute Assessment & Plan: Secondary to atrial flutter with RVR Manage per below (2) Atrial flutter with rapid ventricular response Status: Acute Assessment & Plan: Continues to be tachycardic and inconsistent atrial flutter. Continues to be asymptomatic Patient is currently on Dilt for 80 mg total daily, metoprolol 25 mg twice daily p.o., metoprolol 2.5 mg IV every 4 hours, digoxin 0.25 mg daily p.o. s/p TARA on 03/19 showing questionable thrombus, thus not a candidate for cardioversion Will defer to cardiology for recommendations Continue Eliquis for anticoagulation Wean oxygen as tolerated (3) Atrial thrombus Status: Chronic Assessment & Plan: Per above, noted on prior TARA Monitor indication for cardioversion (4) Oxygen desaturation Status: Resolved Assessment & Plan: Patient not on oxygen at home Currently on 2.5 L, likely secondary to increased stress on heart and lungs with the atrial fibrillation with RVR Wean as tolerated to maintain saturations above 92% (5) HTN (hypertension) Status: Chronic Assessment & Plan: Well-controlled, will continue to monitor Qualifiers: Qualified Codes: I10 - Essential (primary) hypertension (6) DVT prophylaxis Status: Resolved Assessment & Plan: Continue Eliquis as per above YVES CANNON DO 03/22/23 2020: Discharge Summary Hospital Course Was the Problem List Reviewed?: Yes Discharge Planning: <30 minutes discharge planning Discharge Instructions Discharge Diet: No Restrictions Activity as Tolerated: Yes Discharge Physical Examination General Appearance: No Apparent Distress, WD/WN, Chronically ill Allergies: Coded Allergies: No Known Drug Allergies (Unverified , 06/25/18) ANNIA ESPINOZA MD Mar 22, 2023 15:56 YVES CANNON DO Mar 22, 2023 20:20
[2023-03-22 16:15] VITALS: BP 118/91
[2023-03-22] MEDS ORDERED: meTOprolol TARTRATE 50 MG (LOPRESSOR) TAB PO SCH (21:00)
== END 2023-03-22 16:15 | disposition home or self-care (01) | DRG 309 ==
LOC: ER 15:28 → EDUNIT# 15:28 → ICU 17:15
PROVIDERS: ADMIT Family Medicine; ATTEND Family Medicine
DX: I48.92 Unspecified atrial flutter (principal); I23.6 Thrombosis of atrium, auricular appendage, and ventricle as current complications following acute myocardial infarction; I65.29 Occlusion and stenosis of unspecified carotid artery; E78.5 Hyperlipidemia, unspecified; I45.10 Unspecified right bundle-branch block; Z79.01 Long term (current) use of anticoagulants; I10 Essential (primary) hypertension; I44.4 Left anterior fascicular block; K21.9 Gastro-esophageal reflux disease without esophagitis; Z79.82 Long term (current) use of aspirin; Z79.899 Other long term (current) drug therapy; F17.220 Nicotine dependence, chewing tobacco, uncomplicated
CPT/HCPCS: 36415; 71045; 80048; 80053; 80061; 80162; 83735; 83874; 83880; 84100; 84443; 84484; 85025; 85379; 85610; 85730; 87081; 93005; 93041; 93312; 94760; 96361; 96372; 96374

== ENCOUNTER 2023-04-13 15:17 | Observation (INO) | payer MEDICARE, OTHER ==
[~2023-04-13] VITALS: Ht 180 cm; Wt 98.8 kg
[~2023-04-13 15:17] MED LIST changes: +APIX5TAB PO; +DIGO250T15 PO; +DILT180C85 PO; +LOSA100T58 PO; +METO50TA15 PO; +OMEG100032 PO
--- NOTE | 2023-04-13 15:38 | ED Cardiac General ---
History of Present Illness General Chief Complaint: Cardiac/General Problems Stated Complaint: LOW VITALS Nursing Triage Note: PT AMB TO RM 6 WITH C/O VARRYING PULSE RATES THE LAST FEW WEEKS. PT STATES IT HAS BEEN MAKING HIM FEEL PANICKY WHEN HIS PULSE IS LOW Source: patient Exam Limitations: no limitations History of Present Illness Date Seen by Provider: Apr 13, 2023 Time Seen by Provider: 15:26 Initial Comments 68-year-old male with recent history of clot in his right atrial appendage, atrial flutter presents to the emergency department for bradycardia, hypotension and episodes of feeling weak and panicky when his pulse is low. He was seen initially at the [facility] clinic in [place] today and referred for further evaluation when found to be bradycardic and hypotensive. He states he was diagnosed with a clot in his atrial appendage on March 18 and admitted to our ICU and started on anticoagulation. He was ultimately discharged in stable condition though he did continued to be tachycardic. Upon discharge his blood pressure and cardiac medication regimen was changed completely. He is now taking metoprolol tartrate 50 mg twice daily, diltiazem 180 mg twice daily, digoxin 0.25 mg daily and he is on Eliquis. He states previously he was taking 2 other medications for blood pressure including a different form of metoprolol and lisinopril. He denies any fevers chills chest pain or shortness of breath at present. He states he has episodes where his blood pressure and heart rate will dip low and states it was in the 40s this morning which was the reason he p resented to [facility]. Prior to today's heart rate have been in the 50s and 60s. All other systems reviewed and negative except documented per HPI. Voice recognition software was used to help create this chart Allergies and Home Medications Allergies Coded Allergies: No Known Drug Allergies (Unverified , 06/25/18) Patient Home Medication List Home Medication List Reviewed: Yes Alfuzosin HCl (Alfuzosin HCl ER) 10 Mg Tab.er.24h, 10 MG PO HS, (Reported) Entered as Reported by: NICHOLAS GIL on 03/19/23 1339 Last Action: Reviewed Amiodarone HCl (Amiodarone HCl) 200 Mg Tablet, 200 MG PO UD Prescribed by: SHARONA GARCIA on 04/15/23 0818 Apixaban (Eliquis) 5 Mg Tablet, 5 MG PO BID, (Reported) Entered as Reported by: NICHOLAS GIL on 04/14/23 1202 Last Action: Reviewed Atorvastatin Calcium (Atorvastatin Calcium) 10 Mg Tablet, 10 MG PO HS, (Reported) Entered as Reported by: LUCIANO ROBLERO on 07/03/21 09 Last Action: Reviewed Cyanocobalamin (Vitamin B-12) (Vitamin B-12) 1,000 Mcg Tablet, 1,000 MCG PO HS, (Reported) Entered as Reported by: EZEQUIEL DAWN on 01/04/16 1028 Last Action: Reviewed Metoprolol Tartrate (Metoprolol Tartrate) 50 Mg Tablet, 50 MG PO BID, (Reported) Entered as Reported by: NICHOLAS GIL on 04/14/23 1202 Last Action: Reviewed Multivitamin (Multivitamins) 1 Each Tablet, 1 EACH PO HS, (Reported) Entered as Reported by: TODD GUAN on 06/13/17 1139 Last Action: Reviewed Manilla-3/Dha/Epa/Fish Oil (Fish Oil 1,000 mg Softgel) 1,000 Mg (120 Mg-180 Mg) Capsule, 1,000 MG PO BID, (Reported) Entered as Reported by: NICHOLAS GIL on 03/19/23 1339 Last Action: Reviewed Pantoprazole Sodium (Pantoprazole Sodium) 40 Mg Tablet.dr, 40 MG PO DAILY, (Reported) Entered as Reported by: EZEQUIEL DAWN on 01/04/16 1023 Last Action: Reviewed Turmeric/Turmeric Root Extract (Turmeric 450-50 mg Capsule) 450 Mg-50 Mg Capsule, 1 EACH PO HS, (Reported) Entered as Reported by: LUCIANO ROBLERO on 07/03/21940 Last Action: Reviewed Discontinued Medications Apixaban (Eliquis) 5 Mg Tablet, 5 MG PO BID Discontinued Reason: No Longer Taking Prescribed by: YVES CANNON on 03/22/23 1547 Last Action: Discontinued Aspirin (Aspirin) 81 Mg Tab.chew, 81 MG PO DAILY, (Reported) Discontinued Reason: No Longer Taking Entered as Reported by: LUCIANO ROBLERO on 07/03/21 09 Last Action: Discontinued Aspirin (Aspirin EC) 81 Mg Tablet.dr, 81 MG PO DAILY, (Reported) Entered as Reported by: NICHOLAS GIL on 04/14/231201 Last Action: Reviewed Digoxin (Digox) 250 Mcg (0.25 Mg) Tablet, 0.25 MG PO DAILY Discontinued Reason: No Longer Taking Prescribed by: YVES CANNON on 03/22/231546 Last Action: Discontinued Digoxin (Digoxin) 125 Mcg (0.125 Mg) Tablet, 250 MCG PO DAILY, (Reported) Entered as Reported by: NICHOLAS GIL on 04/14/231201 Last Action: Reviewed Diltiazem HCl (Diltiazem 24Hr ER) 180 Mg Cap.er.24h, 360 MG PO DAILY Discontinued Reason: No Longer Taking Prescribed by: YVES CANNON on 03/22/231546 Last Action: Discontinued Diltiazem HCl (Diltiazem 24Hr ER) 360 Mg Cap.er.24h, 360 MG PO DAILY, (Reported) Entered as Reported by: NICHOLAS GIL on 04/14/231201 Last Action: Reviewed Diltiazem HCl (Diltiazem 24Hr Cd) 120 Mg Cap.er.24h, 120 MG PO HS, (Reported) Entered as Reported by: NICHOLAS GIL on 04/14/231201 Last Action: Reviewed Metoprolol Tartrate (Metoprolol Tartrate) 50 Mg Tablet, 50 MG PO BID Discontinued Reason: No Longer Taking Prescribed by: YVES CANNON on 03/22/231546 Last Action: Discontinued Review of Systems Review of Systems Constitutional: see HPI Past Vvmibra-Ckpndw-Ukkekm Hx Patient Social History Tobacco Use?: No Substance use?: No Alcohol Use?: Yes Alcohol type: Beer Alcohol Frequency: Once in a while Pt feels they are or have been: No Immunizations Up To Date First/Initial COVID19 Vaccinat: 09/2020 Second COVID19 Vaccination Misael: 10/2020 Third COVID19 Vaccination Date: NO Seasonal Allergies Seasonal Allergies: Yes (MILD) Past Medical History Surgery/Hospitalization HX: HTN, COLON CA, TUMOR ON APPE AND SM INTEST, LT SHOULDER Surgeries: Yes (COLON RESECTION X2, LEFT SHOULDER X2) Bowel Surgery, Orthopedic, Tonsillectomy Respiratory: No Cardiac: Yes (RT BBB) High Cholesterol, Hypertension Neurological: No Reproductive Disorders: No Sexually Transmitted Disease: No HIV/AIDS: No Genitourinary: Yes Benign Prostatic Hyperpl, Prostate Problems Gastrointestinal: Yes ( 2014 BLEEDING ULCER, HX COLON TUMOR ON APPENDIX) Gastrointestinal Bleed, Polyps, Hiatal Hernia, Ulcer Musculoskeletal: Yes (LOW BACK PAIN-) Degenerate Disk Disease, Chronic Back Pain Endocrine: No HEENT: No Loss of Vision: Bilateral Hearing Impairment: Denies Cancer: Yes (COLON RESECTION 1999 WITH CHEMO) Colon What Type of Treatment Did You: Chemotherapy, Surgical Intervention Psychosocial: No Integumentary: No Blood Disorders: No Adverse Reaction/Blood Tranf: No (N/A) Family Medical History CANCER FH: cancer 19 FATHER FHx: cancer Physical Exam Vital Signs Vital Signs - First Documented 04/13/23 15:24 Temp 36.7 Pulse 61 Resp 23 B/P (MAP) 128/90 (103) Pulse Ox 93 O2 Delivery Room Air Capillary Refill : Height, Weight, BMI Height: 5'11.00" Weight: 207lbs. 7.0oz. 94.619375yx; 31.75 BMI Method:Stated General Appearance: No Apparent Distress, WD/WN HEENT: Normal ENT Inspection, Pharynx Normal Neck: Normal Inspection, Non Tender, Supple Respiratory: Chest Non Tender, Lungs Clear, Normal Breath Sounds, No Accessory Muscle Use, No Respiratory Distress Cardiovascular: No Murmur, Bradycardia Gastrointestinal: Normal Bowel Sounds, No Organomegaly, Non Tender, Soft Extremity: Normal Capillary Refill, Normal Inspection, Normal Range of Motion, Non Tender, No Calf Tenderness Neurologic/Psychiatric: Alert, Oriented x3, No Motor/Sensory Deficits Skin: Normal Color, Warm/Dry Progress/Results/Core Measures Results/Orders Lab Results Laboratory Tests Test 04/13/23 15:30 Range/Units White Blood Count 8.8 4.3-11.0 10^3/uL Red Blood Count 5.17 4.30-5.52 10^6/uL Hemoglobin 14.8 13.3-17.7 g/dL Hematocrit 44 40-54 % Mean Corpuscular Volume 85 80-99 fL Mean Corpuscular Hemoglobin 29 25-34 pg Mean Corpuscular Hemoglobin Concent 34 32-36 g/dL Red Cell Distribution Width 13.4 10.0-14.5 % Platelet Count 222 130-400 10^3/uL Mean Platelet Volume 10.6 9.0-12.2 fL Immature Granulocyte % (Auto) 0 % Neutrophils (%) (Auto) 62 42-75 % Lymphocytes (%) (Auto) 25 12-44 % Monocytes (%) (Auto) 10 0-12 % Eosinophils (%) (Auto) 2 0-10 % Basophils (%) (Auto) 1 0-10 % Neutrophils # (Auto) 5.5 1.8-7.8 10^3/uL Lymphocytes # (Auto) 2.2 1.0-4.0 10^3/uL Monocytes # (Auto) 0.9 0.0-1.0 10^3/uL Eosinophils # (Auto) 0.2 0.0-0.3 10^3/uL Basophils # (Auto) 0.1 0.0-0.1 10^3/uL Immature Granulocyte # (Auto) 0.0 0.0-0.1 10^3/uL Sodium Level 140 135-145 MMOL/L Potassium Level 3.9 3.6-5.0 MMOL/L Chloride Level 112 H 98-107 MMOL/L Carbon Dioxide Level 20 L 21-32 MMOL/L Anion Gap 8 5-14 MMOL/L Blood Urea Nitrogen 17 7-18 MG/DL Creatinine 0.97 0.60-1.30 MG/DL Estimat Glomerular Filtration Rate 85 BUN/Creatinine Ratio 18 Glucose Level 105 70-105 MG/DL Calcium Level 8.7 8.5-10.1 MG/DL Corrected Calcium 8.6 8.5-10.1 MG/DL Magnesium Level 1.9 1.6-2.4 MG/DL Total Bilirubin 0.6 0.1-1.0 MG/DL Aspartate Amino Transf (AST/SGOT) 23 5-34 U/L Alanine Aminotransferase (ALT/SGPT) 40 0-55 U/L Alkaline Phosphatase 77 40-136 U/L Total Protein 6.7 6.4-8.2 GM/DL Albumin 4.1 3.2-4.5 GM/DL Digoxin Level 0.83 0.80-2.00 NG/ML My Orders Orders - GLORIA VELASQUEZ DO Comprehensive Metabolic Panel (04/13/23 15:32) Magnesium (04/13/23 15:32) Digoxin (04/13/23 15:32) Ekg Tracing (04/13/23 15:32) Cbc With Automated Diff (04/13/23 15:32) Ed Admission (Communication) (04/13/23 16:48) Vital Signs/I&O 04/13/23 04/13/23 15:24 17:10 Temp 36.7 Pulse 61 53 Resp 23 16 B/P (MAP) 128/90 (103) 115/89 Pulse Ox 93 95 O2 Delivery Room Air Blood Pressure Mean: 103 Comment Atrial fibrillation with slow ventricular response. Rate of 45. Borderline left axis deviation. Right bundle branch block. T wave inversions in leads III and aVF. No other ST or T wave abnormalities. No ectopy. No STEMI. Critical Care Note Critical Care Total Time (minutes) 60 Departure Communication (Admissions) Patient has slow A-fib with bradycardia. This is presumably because of his combination of medications and negative inotropes. He is dizzy, lightheaded when he has these episodes of the last couple days but have been persistent throughout the day today. He has no chest pain. His work-up is otherwise unremarkable normal electrolytes, no evidence for anemia or infection. It is for ACS. I spoke with Dr. Hoang who request admission to the hospital. Spoke with Dr. Keller who accepts patient in admission. Impression Primary Impression: Bradycardia Disposition: ADMITTED INPATIENT Condition: Stable Admissions Decision to Admit Reason: Admit from ER (General) Departure-Patient Inst. Referrals: [facility] [place] (PCP/Family) Primary Care Physician Scripts Amiodarone HCl (Amiodarone HCl) 200 Mg Tablet 200 MG PO UD, #100 TAB 2 Refills Take 2 tablet twice daily for 1 week then take 1 tablet twice daily Prov: SHARONA GARCIA MD 04/15/23 GLORIA VELASQUEZ DO Apr 13, 2023 15:38
[2023-04-13 15:46] LABS: BASOPHILS # (AUTO) 0.1 10^3/uL (0.0-0.1); BASOPHILS % (AUTO) 1 % (0-10); EOSINOPHILS # (AUTO) 0.2 10^3/uL (0.0-0.3); EOSINOPHILS % (AUTO) 2 % (0-10); HEMATOCRIT 44 % (40-54); HEMOGLOBIN 14.8 g/dL (13.3-17.7); LYMPHOCYTES # (AUTO) 2.2 10^3/uL (1.0-4.0); LYMPHOCYTES % (AUTO) 25 % (12-44); MEAN CORPUSCULAR HEMOGLOBIN 29 pg (25-34); MEAN CORPUSCULAR HGB CONC 34 g/dL (32-36); MEAN CORPUSCULAR VOLUME 85 fL (80-99); MEAN PLATELET VOLUME 10.6 fL (9.0-12.2); MONOCYTES # (AUTO) 0.9 10^3/uL (0.0-1.0); MONOCYTES % (AUTO) 10 % (0-12); NEUTROPHILS # (AUTO) 5.5 10^3/uL (1.8-7.8); NEUTROPHILS % (AUTO) 62 % (42-75); PLATELET COUNT 222 10^3/uL (130-400); WHITE BLOOD COUNT 8.8 10^3/uL (4.3-11.0)
[2023-04-13 16:00] LABS: ALBUMIN 4.1 GM/DL (3.2-4.5); POTASSIUM 3.9 MMOL/L (3.6-5.0)
[2023-04-13 16:01] LABS: CALCIUM 8.7 MG/DL (8.5-10.1)
[2023-04-13 16:03] LABS: TOTAL PROTEIN 6.7 GM/DL (6.4-8.2)
[2023-04-13 16:04] LABS: BILIRUBIN,TOTAL 0.6 MG/DL (0.1-1.0)
[2023-04-13 16:06] LABS: CREATININE SERUM 0.97 MG/DL (0.60-1.30)
[2023-04-13 16:09] LABS: MAGNESIUM 1.9 MG/DL (1.6-2.4)
[2023-04-13] MEDS ORDERED: ALPRAZolam 1 MG TABLET PO PRN (17:45)
[2023-04-13] MEDS ORDERED: HYDROmorphone INJECTION 2 MG/ML VIAL IV PRN (17:45)
[2023-04-13] MEDS ORDERED: LACTULOSE SYRUP 10GM/15ML 30ML UDC PO PRN (17:45)
[2023-04-13] MEDS ORDERED: MILK OF MAGNESIA 400 MG/5 ML 30 ML UDC PO PRN (17:45)
[2023-04-13] MEDS ORDERED: ANTACID SUSPENSION 30 ML UDC PO PRN (17:45)
[2023-04-13] MEDS ORDERED: ONDANSETRON INJECTION 4 MG/2 ML (SDV) IV PRN (17:45)
[2023-04-13] MEDS ORDERED: PATIENT MAY USE OWN MEDS, ALL PO SCH (17:45)
[2023-04-13] MEDS ORDERED: ACETAMINOPHEN 325 MG TABLET PO PRN (17:45)
[2023-04-13] MEDS ORDERED: MELATONIN 3 MG TABLET PO PRN (17:45)
[2023-04-13] MEDS ORDERED: oxyCODONE IMMEDIATE RELEASE 5 MG TABLET PO PRN (17:45)
[2023-04-13] MEDS ORDERED: diphenhydrAMINE INJ 50 MG/ML VIAL IVP PRN (17:45)
[2023-04-13] MEDS ORDERED: diphenhydrAMINE 25 MG TABLET PO PRN (17:45)
[2023-04-13] MEDS ORDERED: BISACODYL 10 MG SUPPOSITORY PR PRN (17:45)
[2023-04-13] MEDS ORDERED: CALCIUM CARBONATE 500 MG CHEW TABLET PO PRN (17:45)
[2023-04-13] MEDS ORDERED: ONDANSETRON 4 MG ORAL DISSOLVE TABLET PO PRN (17:45)
[2023-04-13 18:42] VITALS: BP 125/81
[2023-04-13 20:00] VITALS: BP 119/90
[2023-04-13] MEDS: NS IV 1000 ML 1,000 ML IV SCH (20:53)
[2023-04-13] MEDS: APIXABAN 5 MG TABLET PO SCH (20:53)
[2023-04-13] MEDS: SENNOSIDES 8.6 MG TABLET PO SCH (20:53)
[2023-04-13] MEDS: DOCUSATE SODIUM 100 MG CAPSULE PO SCH (20:53)
[2023-04-13] MEDS: meTOprolol TARTRATE (IR) 25 MG TABLET PO SCH (21:35)
[2023-04-14] VITALS (7 sets, daily range): BP systolic 108–156; BP diastolic 63–103
[2023-04-14 05:14] LABS: BASOPHILS # (AUTO) 0.1 10^3/uL (0.0-0.1); BASOPHILS % (AUTO) 1 % (0-10); EOSINOPHILS # (AUTO) 0.2 10^3/uL (0.0-0.3); EOSINOPHILS % (AUTO) 3 % (0-10); HEMATOCRIT 41 % (40-54); HEMOGLOBIN 13.8 g/dL (13.3-17.7); LYMPHOCYTES # (AUTO) 1.4 10^3/uL (1.0-4.0); LYMPHOCYTES % (AUTO) 17 % (12-44); MEAN CORPUSCULAR HEMOGLOBIN 28 pg (25-34); MEAN CORPUSCULAR HGB CONC 34 g/dL (32-36); MEAN CORPUSCULAR VOLUME 84 fL (80-99); MEAN PLATELET VOLUME 11.1 fL (9.0-12.2); MONOCYTES # (AUTO) 0.8 10^3/uL (0.0-1.0); MONOCYTES % (AUTO) 10 % (0-12); NEUTROPHILS # (AUTO) 5.7 10^3/uL (1.8-7.8); NEUTROPHILS % (AUTO) 69 % (42-75); PLATELET COUNT 183 10^3/uL (130-400); WHITE BLOOD COUNT 8.2 10^3/uL (4.3-11.0)
[2023-04-14 05:27] LABS: ALBUMIN 3.8 GM/DL (3.2-4.5)
[2023-04-14 05:28] LABS: POTASSIUM 3.7 MMOL/L (3.6-5.0)
[2023-04-14 05:29] LABS: CALCIUM 8.2 MG/DL (8.5-10.1)
[2023-04-14 05:30] LABS: TOTAL PROTEIN 6.1 GM/DL (6.4-8.2)
[2023-04-14 05:32] LABS: BILIRUBIN,TOTAL 0.8 MG/DL (0.1-1.0)
[2023-04-14 05:34] LABS: CREATININE SERUM 0.85 MG/DL (0.60-1.30)
[2023-04-14 07:35] LABS: TRIGLYCERIDES 104 MG/DL (<150); VLDL CHOLESTEROL 21 MG/DL (5-40)
[2023-04-14 07:40] LABS: CHOLESTEROL 94 MG/DL (< 200)
[2023-04-14 07:41] LABS: HDL CHOLESTEROL 27 MG/DL (40-60)
[2023-04-14] MEDS: APIXABAN 5 MG TABLET PO SCH ×2 (08:28→20:52)
[2023-04-14] MEDS: meTOprolol TARTRATE (IR) 25 MG TABLET PO SCH ×2 (08:29→20:52)
[2023-04-14] MEDS: DOCUSATE SODIUM 100 MG CAPSULE PO SCH ×2 (08:31→20:52)
[2023-04-14] MEDS: SENNOSIDES 8.6 MG TABLET PO SCH ×2 (08:31→20:32)
[2023-04-14] MEDS: NS IV 1000 ML 1,000 ML IV SCH ×2 (08:38→11:37)
--- NOTE | 2023-04-14 09:04 | Cardiology Progress Note ---
Subjective Date Seen by Provider: Apr 14, 2023 Time Seen by Provider: 09:01 Subjective/Events-last exam Patient was seen at bedside, laying down comfortably, feeling better. No new complaint Review of Systems General: No Chills, No Night Sweats, No Fatigue, No Malaise, No Appetite, No Other HEENT: No Head Aches, No Visual Changes, No Eye Pain, No Ear Pain, No Dysph artis, No Sinus Congestion, No Post Nasal Drip, No Sore Throat, No Other Pulmonary: No Dyspnea, No Cough, No Pleuritic Chest Pain, No Other Cardiovascular: No: Chest Pain, Palpitations, Orthopnea, Paroxysmal Noc. Dyspnea, Edema, Lt Headedness, Other Objective-Cardiology Exam Last Set of Vital Signs Vital Signs 04/13/23 04/14/23 21:28 08:00 Temp 36.9 Pulse 71 Resp 16 B/P (MAP) 134/78 (96) Pulse Ox 95 O2 Delivery Room Air FiO2 21 I&O Intake and Output 04/14/23 00:00 Intake Total 100 ml Output Total 0 ml Balance 100 ml Intake Oral 100 ml Output Urine Total 0 ml Daily Weight Change Unsure General: Alert, Oriented X3, Cooperative HEENT: Atraumatic, PERRLA Neck: Supple, No JVD, No Thyromegaly Lungs: Clear to Auscultation, Normal Air Movement Heart: Regular Rate, Normal S1, Normal S2, No Murmurs Abdomen: Normal Bowel Sounds, Soft, No Tenderness, No Hepatosplenomegaly, No Masses Extremities: No Clubbing, No Cyanosis, No Edema, Normal Pulses, No Tenderness/Swelling Skin: No Rashes, No Breakdown, No Significant Lesion Neuro: Normal Gait, Normal Speech, Strength at 5/5 X4 Ext, Normal Tone, Sensation Intact Psych/Mental Status: Mental Status NL, Mood NL Results Lab Laboratory Tests 04/13/23 15:30 04/14/23 04:41 A/P-Cardiology Admission Diagnosis Sinus bradycardia Paroxysmal atrial flutter Hypertension Hyperlipidemia Assessment/Plan Sinus bradycardia, secondary to medication Patient was on digoxin, Cardizem and metoprolol Currently heart rate is better Maintained on metoprolol 50 twice daily and I will add amiodarone Paroxysmal atrial flutter, had a TARA suggestive of possible left atrial thrombus earlier in March 2023 Maintained on oral anticoagulation Converted spontaneously to sinus rhythm Became more bradycardic We stopped the digoxin and diltiazem Started on metoprolol 50 and I added amiodarone and will evaluate tolerance and response. 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 Has been followed by Dr. Lopez. Baseline Abnormal EKG with right bundle branch block, left anterior fascicular block. Stress test done 2018 showing good exercise tolerance with no EKG changes. Discussed possibility of repeating stress test, patient is refusing at this time. Hyperlipidemia, maintained on Lipitor 10 mg daily, continue to monitor as outpatient. Nonobstructive carotid artery stenosis, most recent duplex done July 2022. SHARONA GARCIA MD Apr 14, 2023 09:04
[2023-04-14] MEDS: AMIODARONE 200 MG TABLET PO SCH ×2 (09:46→20:52)
--- NOTE | 2023-04-14 10:31 | History & Physical ---
HPI History of Present Illness: 68-year-old male with a history of atrial flutter, HLD, and HTN presented to the ED on 04/13 after being seen at [facility] with chief complaint of bradycardia. Patient reports that he has been having episodes of bradycardia with his pulse down in the 40s, and has been anxious and panicky when he has these episodes, describing it as a feeling of claustrophobia. He was previously admitted from 03/18-03/22 for atrial flutter. A TARA on 03/19 showed a questionable thrombus in the left atrium, preventing him from being a candidate for cardioversion. He was tachycardic throughout his stay despite changes in his medication, with pulses staying around the 120s. He was discharged with eliquis, metoprolol 50mg BID, diltiazem 180 mg BID and digoxing 0.25 mg daily. Since his discharge, he has been checking his pulse twice a day, morning and afternoon. He reports that for about 10 days his pulse remained in the 120s. The next 5-6 days, his pulse was in the 120s in the morning, and 50s-60s in the afternoon, since then his pulse had mostly stayed in the 50s, sometimes going into the 40s, leading to him going to [facility]. On admission to , EKG showed he was in sinus rhythm and HR 45. His HR has stayed around 50s-60s since he has been admitted and has maintained sinus rhythm. He was seen by cardiology this morning, who discontinued all BP medicat ions except metoprolol, and added amiodarone. He reports that he feels well this morning, besides being tired from not sleeping last night. Denies any chest pain, palpitations or SOb. HR is in the 60s while in the room, sinus rhythm. Patient has no other complaints at this time. Source: patient Exam Limitations: no limitations Date seen by provider: Apr 14, 2023 Time Seen by Provider: 09:00 Attending Physician Nestor Brown - [facility] PCP Admitting Physician: Jayleen Cristobal DO Attending Physician: Lisa Smith MD Consult Date of Admission Apr 13, 2023 at 17:16 Home Medications Home Medications Reviewed patient Home Medication Reconciliation performed by pharmacy medication reconciliations airplane technician and/or nursing. Patients Allergies have been reviewed. Allergies Coded Allergies: No Known Drug Allergies (Unverified , 06/25/18) FAN-Dpmfoq-Vqyiky Hx Patient Social History Marrital Status: 2nd Hand Smoke Exposure: Yes Recent Hopitalizations: No Alcohol Use?: Yes Immunizations Up To Date Influenza Vaccine Up-to-Date: Yes; Up-to-Date First/Initial COVID19 Vaccinat: 09/2020 Second COVID19 Vaccination Misael: 10/2020 Third COVID19 Vaccination Date: NO Past Medical History HTN HLD GERD Family Medical History Family History: CANCER FH: cancer 19 FATHER FHx: cancer Review of Systems ([facility]) Constitutional: No chills, No fever EENTM: No hearing loss, No blurred vision Respiratory: No dyspnea on exertion, No short of breath Cardiovascular: No chest pain, No palpitations Gastrointestinal: No abdominal pain, No nausea, No vomiting Genitourinary: No dysuria, No incontinence Musculoskeletal: No back pain, No neck pain Skin: No change in color, No change in hair/nails Psychiatric/Neurological: Denies Numbness, Denies Weakness Reviewed Test Results Reviewed Test Results Lab Vital Signs 04/13/23 04/14/23 21:28 08:00 Temp 36.9 Pulse 71 Resp 16 B/P (MAP) 134/78 (96) Pulse Ox 98 O2 Delivery Room Air FiO2 21 Laboratory Tests 04/13/23 15:30: White Blood Count 8.8, Red Blood Count 5.17, Hemoglobin 14.8, Hematocrit 44, Mean Corpuscular Volume 85, Mean Corpuscular Hemoglobin 29, Mean Corpuscular Hemoglobin Concent 34, Red Cell Distribution Width 13.4, Platelet Count 222, Mean Platelet Volume 10.6, Immature Granulocyte % (Auto) 0, Neutrophils (%) (Auto) 62, Lymphocytes (%) (Auto) 25, Monocytes (%) (Auto) 10, Eosinophils (%) (Auto) 2, Basophils (%) (Auto) 1, Neutrophils # (Auto) 5.5, Lymphocytes # (Auto) 2.2, Monocytes # (Auto) 0.9, Eosinophils # (Auto) 0.2, Basophils # (Auto) 0.1, Immature Granulocyte # (Auto) 0.0, Sodium Level 140, Potassium Level 3.9, Chloride Level 112H, Carbon Dioxide Level 20L, Anion Gap 8, Blood Urea Nitrogen 17, Creatinine 0.97, Estimat Glomerular Filtration Rate 85, BUN/Creatinine Ratio 18, Glucose Level 105, Calcium Level 8.7, Corrected Calcium 8.6, Magnesium Level 1.9, Total Bilirubin 0.6, Aspartate Amino Transf (AST/SGOT) 23, Alanine Aminotransferase (ALT/SGPT) 40, Alkaline Phosphatase 77, Total Protein 6.7, Albumin 4.1, Digoxin Level 0.83 04/14/23 04:41: White Blood Count 8.2, Red Blood Count 4.88, Hemoglobin 13.8, Hematocrit 41, Mean Corpuscular Volume 84, Mean Corpuscular Hemoglobin 28, Mean Corpuscular Hemoglobin Concent 34, Red Cell Distribution Width 13.3, Platelet Count 183, Mean Platelet Volume 11.1, Immature Granulocyte % (Auto) 1, Neutrophils (%) (Auto) 69, Lymphocytes (%) (Auto) 17, Monocytes (%) (Auto) 10, Eosinophils (%) (Auto) 3, Basophils (%) (Auto) 1, Neutrophils # (Auto) 5.7, Lymphocytes # (Auto) 1.4, Monocytes # (Auto) 0.8, Eosinophils # (Auto) 0.2, Basophils # (Auto) 0.1, Immature Granulocyte # (Auto) 0.0, Sodium Level 140, Potassium Level 3.7, Chloride Level 111H, Carbon Dioxide Level 21, Anion Gap 8, Blood Urea Nitrogen 14, Creatinine 0.85, Estimat Glomerular Filtration Rate 95, BUN/Creatinine Ratio 16, Glucose Level 104, Calcium Level 8.2L, Corrected Calcium 8.4L, Total Bilirubin 0.8, Aspartate Amino Transf (AST/SGOT) 20, Alanine Aminotransferase (ALT/SGPT) 35, Alkaline Phosphatase 72, Total Protein 6.1L, Albumin 3.8, Mean Blood Glucose [Pending], Hemoglobin A1c [Pending], Triglycerides Level 104, Cholesterol Level 94, LDL Cholesterol Direct 59, VLDL Cholesterol 21, HDL Cholesterol 27L Physical Exam-([facility]) Physical Exam Vital Signs VS - Last 72 Hours, by Label 04/13/23 04/13/23 04/13/23 04/13/23 15:24 17:10 17:50 17:57 Temp 36.7 Pulse 61 53 86 Resp 23 16 B/P (MAP) 128/90 (103) 115/89 Pulse Ox 93 95 93 O2 Delivery Room Air Room Air 804/13/23 04/13/23 04/13/23 18:42 19:09 20:02 21:27 Pulse 56 66 Resp 15 B/P (MAP) 125/81 (96) Pulse Ox 92 98 97 O2 Delivery Room Air Room Air Room Air 04/13/23 04/14/23 04/14/23 04/14/23 21:28 01:06 07:00 07:16 Pulse 66 67 68 74 Resp 16 B/P (MAP) 115/64 (81) Pulse Ox 97 95 O2 Delivery Room Air FiO2 21 04/14/23 04/14/23 08:00 08:00 Temp 36.9 Pulse 71 Resp 16 B/P (MAP) 134/78 (96) Pulse Ox 95 98 O2 Delivery Room Air Room Air Capillary Refill : General Appearance: WD/WN, no apparent distress HEENT: PERRL/EOMI Neck: non-tender, supple Respiratory: chest non-tender, lungs clear, normal breath sounds, no respiratory distress, no accessory muscle use Cardiovascular: regular rate, rhythm, no edema Gastrointestinal: non tender, soft Back: no vertebral tenderness Extremities: non-tender, no pedal edema Neurologic/Psychiatric: alert, oriented x 3 Skin: normal color, warm/dry Lymphatic: no adenopathy (cervical) Assessment/Plan Assessment/Plan Admission Dx Bradycardia Admission Status: Observation Assessment & Plan Bradycardia - Cardiology consulted, appreciate recs. Discontinued diltiazem and digoxin Paroxysmal atrial flutter- currently in sinus rhythm, monitor telemetry, states he is waiting to have an ablation scheduled for later this year Left atrial thrombus - seen on 03/19 echo, maintained on eliquis HTN - continue metoprolol, amiodarone added today HLD - continue home dose atorvastatin 10mg Hx of appendiceal carcinoma - had partial colectomy, in remission, followed by Dr. John DUGAN,[facility] Apr 14, 2023 10:31
[2023-04-14] MEDS ORDERED: ASPI-1238 PO (12:02)
[2023-04-14] MEDS ORDERED: APIX5TAB PO (12:02)
[2023-04-14] MEDS ORDERED: DIGO125T3 PO (12:02)
[2023-04-14] MEDS ORDERED: DILT360C36 PO (12:02)
[2023-04-14] MEDS ORDERED: DILT120C88 PO (12:02)
[2023-04-14] MEDS ORDERED: METO50TA15 PO (12:02)
[2023-04-15 00:26] VITALS: BP 143/94
[2023-04-15 04:36] VITALS: BP 123/76
[2023-04-15 04:59] LABS: BASOPHILS # (AUTO) 0.1 10^3/uL (0.0-0.1); BASOPHILS % (AUTO) 1 % (0-10); EOSINOPHILS # (AUTO) 0.3 10^3/uL (0.0-0.3); EOSINOPHILS % (AUTO) 4 % (0-10); HEMATOCRIT 40 % (40-54); HEMOGLOBIN 13.6 g/dL (13.3-17.7); LYMPHOCYTES # (AUTO) 1.4 10^3/uL (1.0-4.0); LYMPHOCYTES % (AUTO) 20 % (12-44); MEAN CORPUSCULAR HEMOGLOBIN 29 pg (25-34); MEAN CORPUSCULAR HGB CONC 34 g/dL (32-36); MEAN CORPUSCULAR VOLUME 84 fL (80-99); MEAN PLATELET VOLUME 10.5 fL (9.0-12.2); MONOCYTES # (AUTO) 0.8 10^3/uL (0.0-1.0); MONOCYTES % (AUTO) 11 % (0-12); NEUTROPHILS # (AUTO) 4.5 10^3/uL (1.8-7.8); NEUTROPHILS % (AUTO) 64 % (42-75); PLATELET COUNT 177 10^3/uL (130-400); WHITE BLOOD COUNT 7.1 10^3/uL (4.3-11.0)
[2023-04-15 05:06] LABS: ALBUMIN 3.6 GM/DL (3.2-4.5); POTASSIUM 3.6 MMOL/L (3.6-5.0)
[2023-04-15 05:09] LABS: TOTAL PROTEIN 5.8 GM/DL (6.4-8.2)
[2023-04-15 05:10] LABS: BILIRUBIN,TOTAL 0.7 MG/DL (0.1-1.0)
[2023-04-15 05:12] LABS: CREATININE SERUM 0.75 MG/DL (0.60-1.30)
[2023-04-15 07:27] VITALS: BP 137/98
[2023-04-15] MEDS: DOCUSATE SODIUM 100 MG CAPSULE PO SCH (08:03)
[2023-04-15] MEDS: AMIODARONE 200 MG TABLET PO SCH (08:03)
[2023-04-15] MEDS: APIXABAN 5 MG TABLET PO SCH (08:03)
[2023-04-15] MEDS: SENNOSIDES 8.6 MG TABLET PO SCH (08:03)
[2023-04-15] MEDS: meTOprolol TARTRATE (IR) 25 MG TABLET PO SCH (08:06)
--- NOTE | 2023-04-15 08:17 | Cardiology Progress Note ---
Subjective Date Seen by Provider: Apr 15, 2023 Time Seen by Provider: 08:16 Subjective/Events-last exam Patient is sitting comfortably in a chair, feeling better, eating breakfast Review of Systems General: No Chills, No Night Sweats, No Fatigue, No Malaise, No Appetite, No Other HEENT: No Head Aches, No Visual Changes, No Eye Pain, No Ear Pain, No Dysphasia, No Sinus Congestion, No Post Nasal Drip, No Sore Throat, No Other Pulmonary: No Dyspnea, No Cough, No Pleuritic Chest Pain, No Other Cardiovascular: No: Chest Pain, Palpitations, Orthopnea, Paroxysmal Noc. Dyspnea, Edema, Lt Headedness, Other Objective-Cardiology Exam Last Set of Vital Signs Vital Signs 04/13/23 04/14/23 04/15/23 21:28 04:00 07:27 Temp 36.4 Pulse 60 Resp 29 B/P (MAP) 137/98 (111) Pulse Ox 90 O2 Delivery Room Air O2 Flow Rate 2.00 FiO2 21 I&O Intake and Output 04/15/23 00:00 Intake Total 2320 ml Output Total 1600 ml Balance 720 ml Intake Oral 1320 ml IV Total 1000 ml Output Urine Total 1600 ml # Voids 3 # Bowel Movements 1 General: Alert, Oriented X3, Cooperative HEENT: Atraumatic, PERRLA Neck: Supple, No JVD, No Thyromegaly Lungs: Clear to Auscultation, Normal Air Movement Heart: Regular Rate, Normal S1, Normal S2, No Murmurs Abdomen: Normal Bowel Sounds, Soft, No Tenderness, No Hepatosplenomegaly, No Masses Extremities: No Clubbing, No Cyanosis, No Edema, Normal Pulses, No Tenderness/Swelling Skin: No Rashes, No Breakdown, No Significant Lesion Neuro: Normal Gait, Normal Speech, Strength at 5/5 X4 Ext, Normal Tone, Sensation Intact Psych/Mental Status: Mental Status NL, Mood NL Results Lab Laboratory Tests 04/15/23 04:39 A/P-Cardiology Admission Diagnosis Sinus bradycardia Paroxysmal atrial flutter Hypertension Hyperlipidemia Assessment/Plan Sinus bradycardia, secondary to medication Patient was on digoxin, Cardizem and metoprolol Currently heart rate is better Restarted on metoprolol 50 mg daily and added amiodarone Tolerating current medications well Paroxysmal atrial flutter, had a TARA suggestive of possible left atrial thrombus earlier in March 2023 Maintained on oral anticoagulation Converted spontaneously to sinus rhythm Became more bradycardic We stopped the digoxin and diltiazem Started on metoprolol 50 and I added amiodarone and will evaluate tolerance and response. 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 Has been followed by Dr. Lopez. Baseline Abnormal EKG with right bundle branch block, left anterior fascicular block. Stress test done 2018 showing good exercise tolerance with no EKG changes. Discussed possibility of repeating stress test, patient is refusing at this time. Hyperlipidemia, maintained on Lipitor 10 mg daily, continue to monitor as outpatient. Nonobstructive carotid artery stenosis, most recent duplex done July 2022. Okay for discharge and follow-up as an outpatient SHARONA GARCIA MD Apr 15, 2023 08:17
[2023-04-15] MEDS ORDERED: AMIO200T65 PO (08:18)
--- NOTE | 2023-04-15 11:50 | Discharge Summary ---
Discharge [facility] Discharge Medications New, Converted or Re-Newed RX: Transmitted to Pharmacy New Medications: Amiodarone HCl (Amiodarone HCl) 200 Mg Tablet 200 MG PO UD, #100 TAB 2 Refills Take 2 tablet twice daily for 1 week then take 1 tablet twice daily Continued Medications: Alfuzosin HCl (Alfuzosin HCl ER) 10 Mg Tab.er.24h 10 MG PO HS, TAB Apixaban (Eliquis) 5 Mg Tablet 5 MG PO BID, TAB Atorvastatin Calcium (Atorvastatin Calcium) 10 Mg Tablet 10 MG PO HS, TAB Cyanocobalamin (Vitamin B-12) (Vitamin B-12) 1,000 Mcg Tablet 1000 MCG PO HS Metoprolol Tartrate (Metoprolol Tartrate) 50 Mg Tablet 50 MG PO BID, TAB Multivitamin (Multivitamins) 1 Each Tablet 1 EACH PO HS, TAB [place]-3/Dha/Epa/Fish Oil (Fish Oil 1,000 mg Softgel) 1,000 Mg (120 Mg-180 Mg) Capsule 1000 MG PO BID, CAP Pantoprazole Sodium (Pantoprazole Sodium) 40 Mg Tablet.dr 40 MG PO DAILY, TAB Turmeric/Turmeric Root Extract (Turmeric 450-50 mg Capsule) 450 Mg-50 Mg Capsule 1 EACH PO HS, CAP Discontinued Medications: Aspirin (Aspirin EC) 81 Mg Tablet.dr 81 MG PO DAILY, TAB Digoxin (Digoxin) 125 Mcg (0.125 Mg) Tablet 250 MCG PO DAILY, TAB TAKES 2 (125MCG) TABS Diltiazem HCl (Diltiazem 24Hr ER) 360 Mg Cap.er.24h 360 MG PO DAILY, CAP Diltiazem HCl (Diltiazem 24Hr Cd) 120 Mg Cap.er.24h 120 MG PO HS, CAP Patient Instructions Goal/Follow Up Appt: Yulissa PCP 1-2 weeks Activity & Diet Discharge Diet: Cardiac Diet Activity as Tolerated: Yes CECILY LEDEZMA MD Apr 15, 2023 11:50
--- NOTE | 2023-04-15 12:54 | Discharge Summary ---
Discharge Summary Hospital Course Hospital Course Date of Admission: Apr 13, 2023 at 17:16 Admission Diagnosis : Family Physician/Provider: Nestor Brown - [facility] Date of Discharge: 04/15/23 Discharge Diagnosis: [ Bradycardia] Hospital Course: [68-year-old male with a history of atrial flutter, HLD, and HTN presented to the ED on 04/13 after being seen at [facility] with chief complaint of bradycardia. Patient reported that he had been having episodes of bradycardia with his pulse down in the 40s, and felt anxious and panicky during these episodes. He was admitted from 03/18-03/22 for atrial flutter. A TARA on 03/19 showed a questionable thrombus in the left atrium, preventing him from being a candidate for cardioversion, and continued to be tachycardic during his stay with HR in the 120s. He checked his pulse twice daily following that discharge and noted that for ten days it continued to be in the 120s, but for a few days prior to this admission, it had stayed in the 50s-60s, and as low as 45. On admission to , EKG showed he was in sinus rhythm and HR 45. Cardiology was consulted and discontinued all BP medications except for metoprolol 50 mg BID, and added amiodarone 400mg BID. He stayed in sinus rhythm throughout his stay and his pulse kept in the 50s-60s range, without further episodes of panic and anxiety that he was having before admission. He was discharged with these changes in his medication and is scheduled for an outpatient visit with Dr. Hartmann on May 06, and an ablation sometime in June.] Labs and Pending Lab Test: Laboratory Tests 04/15/23 04:39: White Blood Count 7.1, Red Blood Count 4.76, Hemoglobin 13.6, Hematocrit 40, Mean Corpuscular Volume 84, Mean Corpuscular Hemoglobin 29, Mean Corpuscular Hemoglobin Concent 34, Red Cell Distribution Width 13.3, Platelet Count 177, Mean Platelet Volume 10.5, Immature Granulocyte % (Auto) 0, Neutrophils (%) (Auto) 64, Lymphocytes (%) (Auto) 20, Monocytes (%) (Auto) 11, Eosinophils (%) (Auto) 4, Basophils (%) (Auto) 1, Neutrophils # (Auto) 4.5, Lymphocytes # (Auto) 1.4, Monocytes # (Auto) 0.8, Eosinophils # (Auto) 0.3, Basophils # (Auto) 0.1, Immature Granulocyte # (Auto) 0.0, Sodium Level 141, Potassium Level 3.6, Chloride Level 111H, Carbon Dioxide Level 21, Anion Gap 9, Blood Urea Nitrogen 9, Creatinine 0.75, Estimat Glomerular Filtration Rate 98, BUN/Creatinine Ratio 12, Glucose Level 97, Calcium Level 8.0L, Corrected Calcium 8.3L, Total Bi lirubin 0.7, Aspartate Amino Transf (AST/SGOT) 19, Alanine Aminotransferase (ALT/SGPT) 32, Alkaline Phosphatase 72, Total Protein 5.8L, Albumin 3.6 Home Meds Active Amiodarone HCl 200 Mg Tablet 200 Mg PO UD Take 2 tablet twice daily for 1 week then take 1 tablet twice daily Reported Eliquis (Apixaban) 5 Mg Tablet 5 Mg PO BID Metoprolol Tartrate 50 Mg Tablet 50 Mg PO BID Alfuzosin HCl ER (Alfuzosin HCl) 10 Mg Tab.er.24h 10 Mg PO HS Fish Oil 1,000 mg Softgel ([place]-3/Dha/Epa/Fish Oil) 1,000 Mg (120 Mg-180 Mg) Capsule 1,000 Mg PO BID Atorvastatin Calcium 10 Mg Tablet 10 Mg PO HS Turmeric 450-50 mg Capsule (Turmeric/Turmeric Root Extract) 450 Mg-50 Mg Capsule 1 Each PO HS Multivitamins (Multivitamin) 1 Each Tablet 1 Each PO HS Vitamin B-12 (Cyanocobalamin (Vitamin B-12)) 1,000 Mcg Tablet 1,000 Mcg PO HS Pantoprazole Sodium 40 Mg Tablet.dr 40 Mg PO DAILY Discharge Instructions Discharge Diet: Cardiac Diet Activity as Tolerated: Yes Discharge Physical Examination Vital Signs Vital Signs Date Time Temp Pulse Resp B/P (MAP) Pulse Ox O2 Delivery O2 Flow Rate FiO2 04/15/23 12:10 04/15/23 08:52 92 Room Air 04/15/23 07:27 36.4 60 29 04/14/23 04:00 2.00 04/13/23 21:28 21 General Appearance: No Apparent Distress, WD/WN HEENT: PERRL/EOMI Respiratory: Chest Non Tender, Lungs Clear, Normal Breath Sounds Cardiovascular: Regular Rate, Rhythm, No Edema, Normal Peripheral Pulses Gastrointestinal: Non Tender, Soft Extremity: Normal Capillary Refill, No Calf Tenderness, No Pedal Edema Skin: Normal Color, Warm/Dry Neurologic/Psychiatric: Alert, Oriented x3 Allergies: Coded Allergies: No Known Drug Allergies (Unverified , 06/25/18) Discharge Summary Date of Admission Apr 13, 2023 at 17:16 Date of Discharge Apr 15, 2023 at 12:10 Discharge Date: Apr 15, 2023 JAMIE DUGAN Apr 15, 2023 12:54
== END 2023-04-15 12:10 | disposition home or self-care (01) ==
LOC: EDUNIT# 15:17 → ER 15:20 → CSD 17:16 → UNDOADMOB 17:16 → CSD 17:30 → UNDODISOB 04-15 12:10
PROVIDERS: ADMIT Internal Medicine; ATTEND Family Medicine
DX: R00.1 Bradycardia, unspecified (principal); I48.0 Paroxysmal atrial fibrillation; I10 Essential (primary) hypertension; E78.5 Hyperlipidemia, unspecified; K55.069 Acute infarction of intestine, part and extent unspecified; I44.4 Left anterior fascicular block; I45.19 Other right bundle-branch block; I65.29 Occlusion and stenosis of unspecified carotid artery; M54.9 Dorsalgia, unspecified; M79.661 Pain in right lower leg; I48.92 Unspecified atrial flutter; I21.9 Acute myocardial infarction, unspecified; Z79.01 Long term (current) use of anticoagulants; Z79.899 Other long term (current) drug therapy; Z85.038 Personal history of other malignant neoplasm of large intestine; Z90.89 Acquired absence of other organs
CPT/HCPCS: 36415; 80053; 80061; 80162; 83036; 83735; 85025; 93005; 94760; 96361